=== PATIENT | male | born 1935 | race Caucasian/White ===

== ENCOUNTER → 2017-10-26 09:27 | Outpatient (CLI) | payer OTHER, SELFPAY ==
[2017-10-26 10:05] LABS: Add Manual Diff / Slide Review NO; Basophils Percent Auto 0.3 % (0-2); Eosinophils Percent Auto 3.5 % (2-4); Hematocrit 44.9 % (41-53); Hemoglobin 15.1 g/dL (13.5-17.5); Lymphocytes Percent Auto 36.2 % (25-40); Mean Corpuscular HGB Conc 33.7 % (30-36); Mean Corpuscular Hemoglobin 30.8 PG (26-34); Mean Corpuscular Volume 91.4 fL (80-100); Monocytes Percent Auto 8.5 % (3-14); Neutrophils Absolute Auto 3000 /uL (3000-5900); Neutrophils Percent Auto 51.5 % (50-75); Platelet Count 221 X10^3/uL (150-400); Red Blood Cell Count 4.91 X10^6/uL (4.5-5.9); Red Cell Distribution Width 12.9 % (11.6-14.8); White Blood Cell Count 5.8 X10^3/uL (4.5-11.0)
[2017-10-26 10:19] LABS: Alanine Aminotransferase 47 IU/L (21-72); Albumin 4.2 g/dL (3.5-5.0); Albumin Globulin Ratio 1.5 (1.0-2.8); Alkaline Phosphatase 55 U/L (38-126); Aspartate Aminotransferase 25 IU/L (17-59); BUN Creatinine Ratio 21.3 (6-22); Bilirubin Total 0.7 mg/dL (0.2-1.3); Blood Urea Nitrogen 17 mg/dL (9-20); Calcium 9.5 mg/dL (8.4-10.2); Carbon Dioxide 32 mmol/L (22-32); Chloride 104 mmol/L (98-107); Cholesterol 157 mg/dL (140-199); Estimated Glomerular Filt Rate > 60.0 mL/min (>60); Globulin 2.8 g/dL (1.7-4.1); Glucose 102 mg/dL (80-110); HDL Cholesterol 41 mg/dL (40-60); HEMOLYSIS < 15 (0-50); LDL Cholesterol Calculated 93 mg/dL (<100); Potassium 4.5 mmol/L (3.4-5.1); Sodium 144 mmol/L (137-145); Triglycerides 114 mg/dL (35-150)
[2017-10-26 10:45] LABS: Prostate Specific Antigen Scrn 0.484 ng/mL (0.1-4.0)
[2017-10-26 11:45] LABS: Thyroid Stimulating Hormone 1.01 uIU/mL (0.47-4.68)
== END ==
PROVIDERS: Family Provider Family Medicine; PCP Family Medicine; Visit Provider Family Medicine
DX: I10 Essential (primary) hypertension (principal); Z12.5 Encounter for screening for malignant neoplasm of prostate
CPT/HCPCS: 36415; 80053; 80061; 84443; 85025; G0103

== ENCOUNTER → 2018-08-25 07:57 | Outpatient (CLI) | payer MEDICARE, SELFPAY ==
[2018-08-25 09:01] LABS: Add Manual Diff / Slide Review NO; Basophils Absolute Auto 0 /uL (0-100); Basophils Percent Auto 0.4 % (0-2); Eosinophils Absolute Auto 300 /uL (0-450); Eosinophils Percent Auto 4.2 % (2-4); Hematocrit 45.6 % (41-53); Hemoglobin 15.4 g/dL (13.5-17.5); Lymphocytes Absolute Auto 2500 /uL (1100-4500); Lymphocytes Percent Auto 39.6 % (25-40); Mean Corpuscular HGB Conc 33.8 % (30-36); Mean Corpuscular Hemoglobin 30.6 PG (26-34); Mean Corpuscular Volume 90.5 fL (80-100); Monocytes Absolute Auto 600 /uL (0-900); Monocytes Percent Auto 9.2 % (3-14); Neutrophils Absolute Auto 2900 /uL (1500-7000); Neutrophils Percent Auto 46.6 % (50-75); Platelet Count 245 X10^3/uL (150-400); Red Blood Cell Count 5.05 X10^6/uL (4.5-5.9); Red Cell Distribution Width 13.4 % (11.6-14.8); White Blood Cell Count 6.3 X10^3/uL (4.5-11.0)
[2018-08-25 09:33] LABS: Alanine Aminotransferase 33 IU/L (21-72); Albumin 4.2 g/dL (3.5-5.0); Albumin Globulin Ratio 1.3 (1.0-2.8); Alkaline Phosphatase 69 U/L (38-126); Aspartate Aminotransferase 25 IU/L (17-59); BUN Creatinine Ratio 23.3 (6-22); Bilirubin Total 0.9 mg/dL (0.2-1.3); Blood Urea Nitrogen 21 mg/dL (9-20); Calcium 9.8 mg/dL (8.4-10.2); Carbon Dioxide 31 mmol/L (22-32); Chloride 100 mmol/L (98-107); Cholesterol 173 mg/dL (140-199); Estimated Glomerular Filt Rate > 60.0 mL/min (>60); Globulin 3.2 g/dL (1.7-4.1); Glucose 100 mg/dL (80-110); HDL Cholesterol 45 mg/dL (40-60); HEMOLYSIS < 15 (0-50); LDL Cholesterol Calculated 95 mg/dL (<100); Potassium 4.1 mmol/L (3.4-5.1); Sodium 140 mmol/L (137-145); Total Protein 7.4 g/dL (6.3-8.2); Triglycerides 164 mg/dL (35-150); Uric Acid 7.4 mg/dL (3.5-8.5)
[2018-08-25 09:59] LABS: Prostate Specific Antigen Scrn 0.513 ng/mL (0.1-4.0); Thyroid Stimulating Hormone 0.94 uIU/mL (0.47-4.68)
== END ==
PROVIDERS: PCP Family Medicine; Visit Provider Family Medicine
DX: I10 Essential (primary) hypertension (principal); M10.9 Gout, unspecified; Z12.5 Encounter for screening for malignant neoplasm of prostate; Z13.1 Encounter for screening for diabetes mellitus; Z13.220 Encounter for screening for lipoid disorders; Z13.6 Encounter for screening for cardiovascular disorders
CPT/HCPCS: 36415; 80053; 80061; 84443; 84550; 85025; G0103

== ENCOUNTER → 2018-09-05 14:09 | Outpatient (CLI) | payer MEDICARE, SELFPAY ==
--- NOTE | 2018-09-05 14:10 | DI.RAD.S_ITS ---
PROCEDURE: XR CHEST 2V INDICATIONS: sob TECHNIQUE: 2 views of the chest were acquired. COMPARISON: [facility], , CHEST 2 VIEW, 02/02/2012, 16:49. FINDINGS: Surgical changes and devices: None. Lungs and pleura: Mild pulmonary vascular congestion is seen. No definite focal infiltrate. No pleural effusions or pneumothorax. Mediastinum: Mediastinal contours are normal. Heart size is enlarged. Bones and chest wall: No suspicious bony abnormalities. Soft tissues appear unremarkable. IMPRESSION: Cardiomegaly and mild congestion. Finding may represent mild CHF. No focal infiltrate, pleural effusion or pneumothorax. Dictated by: Mic Salazar M.D. on 09/05/2018 at 15:35 Approved by: Mic Salazar M.D. on 09/05/2018 at 15:35
== END ==
PROVIDERS: PCP Family Medicine; Visit Provider Family Medicine
DX: R06.02 Shortness of breath (principal); I51.7 Cardiomegaly; R09.89 Other specified symptoms and signs involving the circulatory and respiratory systems
CPT/HCPCS: 71046

== ENCOUNTER → 2018-09-18 14:48 | Outpatient (CLI) | payer MEDICARE, SELFPAY ==
--- NOTE | 2018-09-18 14:49 | DI.ECHO.S_ITS ---
[place] [facility]---------+ [facility] +---------+ : : [address] : : : : [id number] : : : : Phone: [phone] Echocardiogram Report + + :Name: ANTIONE QURESHI Study Date: 09/18/2018 Height: 68 in : :[facility] Exam Location: [facility] Weight: 212 lb : : Gender: Male BSA: 2.1 m2 : :: 1935 Age: 82 yrs BP: 102/60 mmHg: :Reason For Study: CHF : : Performed By: Kb Henderson : :Referring: SEPIDEH DEWEY : + + Interpretation Summary Normal left ventricle size with ejection fraction 60-65%. The aortic valve is slightly calcified. Mild mitral annular calcification. Mild tricuspid regurgitation. The right ventricular systolic pressure is estimated to be at least 32 mmHg based on an estimated right atrial pressure of 3 mm Hg. Mildly enlarged ascending aorta. Procedure: A two-dimensional transthoracic echocardiogram with color flow and Doppler was performed. The study quality was technically good. There is no prior echocardiogram noted for this patient. The patient was in normal sinus rhythm during the exam. Left Ventricle: The left ventricle is normal in size. There is normal left ventricular wall thickness. The ejection fraction is estimated to be 60-65%. There are no focal wall motion abnormalities. Diastolic function could not be accurately assessed due to contradictory data. Right Ventricle: The right ventricle is normal in size and function. Atria: Both atria are normal in size. The interatrial septum is intact with no evidence for an atrial septal defect. Mitral Valve: The mitral valve leaflets are slightly calcified. There is mild mitral annular calcification. There is trace mitral regurgitation. Aortic Valve: The aortic valve is trileaflet. The aortic valve is slightly calcified. The aortic valve opens well. No aortic regurgitation is present. Tricuspid Valve: The tricuspid valve is normal in structure and function. There is mild tricuspid regurgitation. The right ventricular systolic pressure is estimated to be at least 32 mmHg based on an estimated right atrial pressure of 3 mm Hg. Pulmonic Valve: The pulmonic valve is normal in structure and function. There is trace pulmonic regurgitation. Great Vessels: The aortic root is normal size. The ascending aorta is mildly enlarged. The pulmonary artery is normal size. The IVC is of normal diameter and collapses greater than 50% with a sniff. This suggests a low right atrial pressure of 3 mm Hg. Pericardium/ Pleura There is no pericardial effusion. There is no pleural effusion. MMode/2D Measurements & Calculations LVIDd: 5.0 cm LVOT diam: 2.3 cm LVIDs: 2.8 cm Ao root diam: 3.3 cm FS: 44.8 % asc Aorta Diam: 3.7 cm EPSS: 0.41 cm Ao Arch Diam (Prox Trans): 2.3 cm IVSd: 0.91 cm LVPWd: 0.99 cm LV jain. diameter/BSA (cm/m^2): 2.4 LV sys. diameter/BSA (cm/m^2): 1.3 LA dimension: 4.1 cm RA long axis: 5.4 cm LA A2 area: 19.2 cm2 RA area: 17.0 cm2 LA A4 area: 20.1 cm2 RA vol: 45.4 ml LA length (vol): 6.7 cm RA : 21.6 ml/m2 LA vol: 48.8 ml IVC diam: 2.1 cm LA vol index: 23.3 ml/m2 RVD1 (basal): 4.7 cm RVD2 (mid): 4.8 cm Doppler Measurements & Calculations Ao V2 max: 174.5 cm/sec LVOT Max Venkatesh: 112.4 cm/sec Ao V2 mean: 130.3 cm/sec LV V1 max P.1 mmHg Ao max P.2 mmHg LV V1 VTI: 24.9 cm Ao mean P.5 mmHg SEBASTIAN(I,D): 2.8 cm2 Ao V2 VTI: 36.1 cm SEBASTIAN(V,D): 2.6 cm2 sev ratio: 0.69 SEBASTIAN indexed to BSA (cm^2/m^2): 1.3 MV E max venkatesh: 62.2 cm/sec TR max venkatesh: 268.5 cm/sec MV A max venkatesh: 97.6 cm/sec TR max P.8 mmHg MV E/A: 0.64 PA V2 max: 90.3 cm/sec Med Peak E' Venkatesh: 3.8 cm/sec PA V2 mean: 66.2 cm/sec E/E' med: 16.3 PA mean P.9 mmHg Lat Peak E' Venkatesh: 8.1 cm/sec PA pr(Accel): 29.1 mmHg E/E' lat: 7.7 PA Accel Time: 0.11 sec E/e' average: 12.0 MV dec time: 0.29 sec SVJOSÉ LUIS): 101.8 ml Electronically signed by: Sharonda Sargent on Reading Physician:09/18/2018 05:07 PM
== END ==
PROVIDERS: PCP Family Medicine; Visit Provider Family Medicine
DX: R06.02 Shortness of breath (principal); R93.89 Abnormal findings on diagnostic imaging of other specified body structures; I70.8 Atherosclerosis of other arteries; I07.1 Rheumatic tricuspid insufficiency; Q25.49 Other congenital malformations of aorta
CPT/HCPCS: 93306

== ENCOUNTER → 2019-01-30 13:14 | Outpatient (CLI) | payer MEDICARE, SELFPAY ==
--- NOTE | 2019-01-30 | DI.US.S_ITS ---
ULTRASOUND OF RIGHT BREAST AND AXILLA: 01/30/2019 CLINICAL: Palpable right axilla lump. Comparison is made to exam dated: 01/30/2019 [facility]. Color flow and real-time ultrasound of the right axilla were performed. Tavares scale images of the real-time examination were reviewed. Targeted ultrasound was performed in the region of the patient's reported focal palpable area of concern in the right axilla. No underlying breast mass or abnormality is identified. Benign blood vessels and soft tissues are identified. There are benign-appearing right axillary lymph nodes with no ultrasound evidence of right axillary lymphadenopathy identified. IMPRESSION: BENIGN 1) No suspicious masses, abnormalities, or axillary lymphadenopathy identified within the right axilla by ultrasound to correlate with the patient's reported focal palpable abnormality. Recommend clinical follow-up for further evaluation and management of the patient's reported symptoms. 2) Please note that mild bilateral gynecomastia was identified on bilateral diagnostic mammography performed earlier today 01/30/19. Clinical follow-up for further evaluation and management of these findings is recommended. 3) There is no sonographic evidence of malignancy in the imaged areas of the right axilla. Recommend follow-up imaging as clinically indicated by the patient's referring provider. Patient should return for reimaging should they feel anything grow or change within their breasts and axillae. This exam was interpreted at Station ID: [id number]. Electronically Signed By: Cachorro Del Castillo M.D. ecl/:01/30/2019 14:16:20 copy to: SEPIDEH DEWEY letter sent: Clinical Evaluation Ultrasound BI-RADS: 2 Benign
--- NOTE | 2019-01-30 13:15 | DI.MG.S_ITS ---
MALE BILATERAL DIGITAL DIAGNOSTIC MAMMOGRAM 3D/2D: 01/30/2019 CLINICAL: Baseline exam. Localized swelling mass and lump, right axilla. No prior exams were available for comparison. There is mild bilateral retroareolar gynecomastia. There is a triangular marker overlying the skin of the right axilla at the site of the patient's reported palpable abnormality. There is no underlying mass or abnormality immediately underlying the marker. There are benign appearing right axillary lymph nodes. No other right axillary masses or abnormalities are identified. No other significant masses, calcifications, or other findings are seen in either breast. IMPRESSION: INCOMPLETE: NEEDS ADDITIONAL IMAGING EVALUATION 1) Benign-appearing right axillary lymph nodes on mammography. No other masses or abnormalities are identified in the right axilla to correlate with the site of the patient's reported focal palpable abnormality. Targeted diagnostic ultrasound recommended for further evaluation, which will be performed immediately following this exam. 2) Mild bilateral retroareolar gynecomastia. Recommend clinical follow-up for further evaluation and management of these findings. This exam was interpreted at Station ID: [id number]. NOTE: For mammograms, a report in lay terms will be sent to the patient. Approximately 15% of breast malignancies will not be visualized mammographically. In the management of a palpable breast mass, a negative mammogram must not discourage biopsy of a clinically suspicious lesion. Electronically Signed By: Cachorro Del Castillo M.D. ecl/:01/30/2019 14:35:37 copy to: SEPIDEH DEWEY ACR BI-RADS Category 0: Incomplete [id number]
== END ==
PROVIDERS: PCP Family Medicine; Visit Provider Nurse Practitioner
DX: R92.8 Other abnormal and inconclusive findings on diagnostic imaging of breast (principal); N63.31 Unspecified lump in axillary tail of the right breast; N62 Hypertrophy of breast
CPT/HCPCS: 76882; 77066; G0279

== ENCOUNTER → 2019-08-23 07:05 | Outpatient (CLI) | payer MEDICARE, SELFPAY ==
[2019-08-23 08:31] LABS: BUN Creatinine Ratio 19.3 (6-22); Blood Urea Nitrogen 16 mg/dL (9-20); Carbon Dioxide 30 mmol/L (22-32); Chloride 101 mmol/L (98-107); Estimated Glomerular Filt Rate > 60.0 mL/min (>60); Glucose 98 mg/dL (80-110); HEMOLYSIS < 15 (0-50); Potassium 4.2 mmol/L (3.4-5.1); Sodium 138 mmol/L (137-145)
== END ==
PROVIDERS: PCP Family Medicine; Referring Provider Internal Medicine; Visit Provider Internal Medicine
DX: E87.79 Other fluid overload (principal)
CPT/HCPCS: 36415; 80048

== ENCOUNTER → 2020-01-18 07:10 | Outpatient (CLI) | payer MEDICARE, SELFPAY ==
[2020-01-18 08:21] LABS: Add Manual Diff / Slide Review NO; Basophils Absolute Auto 0 /uL (0-100); Basophils Percent Auto 0.2 % (0-2); Eosinophils Absolute Auto 300 /uL (0-450); Hematocrit 46.1 % (41-53); Hemoglobin 15.3 g/dL (13.5-17.5); Lymphocytes Absolute Auto 2700 /uL (1100-4500); Lymphocytes Percent Auto 37.3 % (25-40); Mean Corpuscular HGB Conc 33.2 % (30-36); Mean Corpuscular Hemoglobin 30.3 PG (26-34); Mean Corpuscular Volume 91.3 fL (80-100); Monocytes Absolute Auto 600 /uL (0-900); Neutrophils Absolute Auto 3600 /uL (1500-7000); Neutrophils Percent Auto 50.5 % (50-75); Platelet Count 263 X10^3/uL (150-400); Red Blood Cell Count 5.05 X10^6/uL (4.5-5.9); Red Cell Distribution Width 13.8 % (11.6-14.8); White Blood Cell Count 7.2 X10^3/uL (4.5-11.0)
[2020-01-18 08:42] LABS: Alanine Aminotransferase 26 IU/L (<50); Albumin 4.2 g/dL (3.5-5.0); Albumin Globulin Ratio 1.3 (1.0-2.8); Alkaline Phosphatase 80 U/L (38-126); Aspartate Aminotransferase 27 IU/L (17-59); BUN Creatinine Ratio 19.2 (6-22); Bilirubin Total 0.7 mg/dL (0.2-1.3); Blood Urea Nitrogen 15 mg/dL (9-20); Calcium 9.9 mg/dL (8.4-10.2); Carbon Dioxide 34 mmol/L (22-32); Chloride 98 mmol/L (98-107); Cholesterol 154 mg/dL (140-199); Estimated Glomerular Filt Rate > 60.0 mL/min (>60); Globulin 3.2 g/dL (1.7-4.1); Glucose 98 mg/dL (80-110); HDL Cholesterol 40 mg/dL (40-60); HEMOLYSIS < 15 (0-50); LDL Cholesterol Calculated 85 mg/dL (<100); Potassium 4.5 mmol/L (3.4-5.1); Sodium 136 mmol/L (137-145); Total Protein 7.4 g/dL (6.3-8.2); Triglycerides 147 mg/dL (35-150)
== END ==
PROVIDERS: PCP Family Medicine; Referring Provider Family Medicine; Visit Provider Family Medicine
DX: I10 Essential (primary) hypertension (principal)
CPT/HCPCS: 36415; 80053; 80061; 85025

== ENCOUNTER → 2020-01-29 10:34 | Outpatient (CLI) | payer MEDICARE, SELFPAY ==
--- NOTE | 2020-01-29 10:35 | DI.RAD.S_ITS ---
PROCEDURE: XR CHEST 2V INDICATIONS: Cough TECHNIQUE: 2 views of the chest were acquired. COMPARISON: [facility], , XR CHEST 2V, 09/05/2018, 14:17. [facility], , CHEST 2 VIEW, 02/02/2012, 16:49. FINDINGS: Surgical changes and devices: None. Lungs and pleura: Lungs are mildly abnormal with a mild chronic interstitial prominence. No pleural effusions or pneumothorax. Mediastinum: Mediastinal contours are normal. Heart size is normal. Bones and chest wall: No suspicious bony abnormalities. Soft tissues appear unremarkable. IMPRESSION: Mild chronic interstitial prominence, no pneumonia found. Dictated by: Rupert Stauffer M.D. on 01/29/2020 at 10:59 Approved by: Rupert Stauffer M.D. on 01/29/2020 at 10:59
== END ==
PROVIDERS: PCP Family Medicine; Referring Provider Family Medicine; Visit Provider Family Medicine
DX: R05 Cough (principal)
CPT/HCPCS: 71046

== ENCOUNTER 2020-06-18 16:03 | Observation (INO) | payer OTHER, SELFPAY ==
[2020-06-18] VITALS (13 sets, daily range): BP systolic 139–184; BP diastolic 72–97; PULSE 55–65; RESP 15–22; TEMP 36.2–36.6; O2SAT 95–98; BMI 30.1; BMI 30.7
--- NOTE | 2020-06-18 16:18 | DI.CT.S_ITS ---
PROCEDURE: CT STROKE INDICATIONS: confusion TECHNIQUE: Noncontrast 4.5 mm thick angled axial sections acquired from the foramen magnum to the vertex, with coronal reformats. For radiation dose reduction, the following was used: automated exposure control, adjustment of mA and/or kV according to patient size. COMPARISON: [facility], CT, HEAD WITHOUT CONTRAST, 11/13/2006, 15:45. FINDINGS: Image quality: Excellent. CSF spaces: Basal cisterns are patent. No extra-axial fluid collections. The ventricles are symmetric in size and shape. Brain: No intracranial bleeds or masses. There is cerebral volume loss for age, with resultant ventricular and sulcal prominence. There are periventricular and deep white matter chronic small vessel ischemic changes. There is intracranial internal carotid artery atherosclerosis. Skull and face: Calvarium and visualized facial bones appear intact, without suspicious lesions. Sinuses: Scattered ethmoid sinus disease. Remaining paranasal sinuses and mastoids are clear. IMPRESSION: 1. CT head without acute intracranial abnormalities or acute calvarial fractures. 2. Age-related senescent changes and sequela of chronic small vessel ischemic disease. 3. Mild scattered ethmoid sinus disease. Findings were discussed with Dr. Crawley of the emergency department at 1637 hrs PST This study fulfills neurological imaging criteria for inclusion or exclusion of acute stroke therapies based on available published neurological guidelines. Dictated by: Jaime Murrell M.D. on 06/18/2020 at 15:34 Approved by: Jaime Murrell M.D. on 06/18/2020 at 15:38
--- NOTE | 2020-06-18 16:29 | ED.NEUROSD ---
HPI - Neuro Symptoms/Deficit General Chief Complaint: Neuro Symptoms/Deficit Stated Complaint: thinks having a TIA Time Seen by Provider: 06/18/20 16:11 Source: patient and family Mode of arrival: Ambulatory Limitations: no limitations History of Present Illness HPI Narrative: Patient seen on arrival into the ER room 1. Patient complains onset 2:00 p.m. this afternoon left-sided headache with confusion. Symptoms resolved by the time saw him . Lasted 30 minutes. Headache better now. No slurred speech facial droop, no limb numbness or weakness. History of mini stroke back in 2006 with left-sided headache. Is not on any anticoagulation. No recent illness. No cough cold congestion fever chills. On Anticoagulants: No Related Data Home Medications Medication Instructions Recorded Confirmed allopurinol 150 mg PO DAILY 06/18/20 06/18/20 Previous Rx's Medication Instructions Recorded epinephrine 0.3 mg IM X1 #1 syr 10/16/15 amlodipine 5 mg tablet 5 mg PO QDAY #90 tab 12/21/19 hydrochlorothiazide 25 mg tablet 25 mg PO DAILY #90 tab 12/21/19 omeprazole 20 mg capsule,delayed 20 mg PO QDAY #90 cap 04/09/20 release aspirin 81 mg PO DAILY #30 tab 06/19/20 atorvastatin 40 mg PO BEDTIME #30 tab 06/19/20 Allergies Allergy/AdvReac Type Severity Reaction Status Date / Time No Known Drug Allergies Allergy Verified 06/18/20 16:17 Review of Systems Review of Systems Narrative: GENERAL: Denies chills, fatigue, malaise, fever, sweats. HEENT: Denies sinus pain, ear pain, sore throat RESPIRATORY: Denies dyspnea, cough CARDIOVASCULAR: Denies chest pain, palpitations GASTROINTESTINAL: Denies nausea, vomiting, abdominal pain : Denies dysuria, frequency, hematuria MUSCULOSKELETAL: denies muscle or bony pain SKIN: Denies rash, skin lesions NEUROLOGIC: Denies weakness, numbness, complaints of headache, complains of confusion PSYCH: No hallucinations auditory or visual ROS Unobtainable: All systems reviewed & are unremarkable except as noted in HPI and below Hematologic/Lymphatic On Anticoagulants: No 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) Chicken pox Dementia Diverticular disease Encysted hydrocele Gout (~1999) Hearing deficit Hearing loss (~1994) Hiatal hernia Hyperlipidemia Hypertension Measles Mumps Shoulder pain (~1999) Stroke (~2006) Vision disorder Surgical History Anesthesia Status post colonoscopy Status post rotator cuff repair (~2004) Umbilical hernia (~2011) Family History Brother Age: 79 High cholesterol Father Mental health problem Dementia Mother Hypertension High cholesterol Social History household members: significant other Smoking Status: Former smoker Smoking Status: Former smoker alcohol intake frequency: holidays/special occasions only Substance Use Type: does not use Exam Narrative Exam Narrative: GENERAL: in no distress, not toxic not dyspneic HEAD: Normocephalic. EYES: Pupils equal round No scleral icterus. No injection no discharge ENT: Mucous membranes moist. NECK: Trachea midline. CARDIOVASCULAR: Regular rate and rhythm without murmurs RESPIRATORY: Clear to auscultation. Breath sounds equal bilaterally. No wheezes, rales, or rhonchi. GASTROINTESTINAL: Abdomen soft, non-tender EXTREMITIES: No gross deformities. BACK: No flank tenderness. NEURO: AOx4. Clear speech no facial droop light touch intact to bilateral face hands and legs. States self gait in hallway to his room. Negative pronator drift. No footdrop. Strong bilateral cigar sorter and hip and knee flexion extension SKIN: Warm and dry PSYCH: Not anxious, is cooperative Initial Vital Signs Initial Vital Signs: Vital Signs Temperature 97.8 F 06/18/20 16:10 Pulse Rate 65 06/18/20 16:10 Respiratory Rate 15 06/18/20 16:10 Blood Pressure 184/97 H 06/18/20 16:10 Pulse Oximetry 98 06/18/20 16:10 Scores NIH Stroke Scale Level of Conciousness: Alert, keenly responsive Ask month/age: Answers both questions correctly. Open/close eyes, close hand: Performs both tasks correctly Best gaze horizontal: Normal Visual crenshaw: No visual loss Facial palsy: Normal symetrical movement Left arm drift: No drift for full 10 sec Right arm drift: No drift for full 10 sec Left leg drift: No drift for full 5 sec Right leg drift: No drift for full 5 sec Limb ataxia: Absent Sensory on face/arms/legs: Normal, no sensory loss Best language: No aphasia, normal Dysarthria: Normal Extinction or inattention: No abnormality Total NIH Stroke scale score: 0 Course Course Course Narrative: No new issues during course of stay Decision to Admit Date: 06/18/20 Decision to Admit time: 16:45 Orders Ordered: Discontinued Medications Acetaminophen (Acetaminophen 325 Mg Tablet) 650 mg PO Q6HR PRN PRN Reason: Fever/Mild Pain (1-3) Allopurinol (Allopurinol 300 Mg Tablet) 150 mg PO DAILY [facility] Allopurinol (Allopurinol 300 Mg Tablet) 200 mg PO DAILY [facility] Allopurinol (Allopurinol 100 Mg Tablet) 200 mg PO DAILY [facility] Last Admin: 06/19/20 09:01 Dose: 200 mg Documented by: NANCY Amlodipine Besylate (Amlodipine 5 Mg Tablet) 5 mg PO DAILY [facility] Last Admin: 06/19/20 09:01 Dose: 5 mg Documented by: NANCY Aspirin (Aspirin 81 Mg Chew Tab) 324 mg PO NOW ONE Stop: 06/18/20 17:26 Last Admin: 06/18/20 17:50 Dose: 243 mg Documented by: STONE Aspirin (Aspirin Ec 81 Mg Tablet) 81 mg PO DAILY [facility] Last Admin: 06/19/20 09:01 Dose: 81 mg Documented by: NANCY Atorvastatin Calcium (Atorvastatin 20 Mg Tablet) 80 mg PO BEDTIME [facility] Last Admin: 06/18/20 20:50 Dose: 80 mg Documented by: ANABELLE Enoxaparin Sodium (Enoxaparin 40 Mg/0.4 Ml Syringe) 40 mg SUBCUT DAILY [facility] Last Admin: 06/19/20 09:02 Dose: 40 mg Documented by: NANCY Meloxicam (Meloxicam 7.5 Mg Tablet) 15 mg PO 0800 [facility] Last Admin: 06/19/20 09:01 Dose: 15 mg Documented by: NANCY Naloxone HCl (Naloxone 0.4 Mg/Ml Vial) 0.2 mg IV Q2MIN PRN PRN Reason: Opiate Reversal Ondansetron HCl (Ondansetron 4 Mg/2 Ml Inj) 4 mg IV Q8HR PRN PRN Reason: Nausea And Vomiting Consultations Consultation #1: Spoke with radiologist regarding CT scan imaging, CT head without contrast no acute process Time: 14:39 Consultation #2: Spoke with Dr. Bennett, she agrees no CT at this time. Admit for the balance of stroke workup here. Including MRI MRA and echocardiogram. Time: 16:46 Consultation #3: Spoke with hospitalist, dr ortega, he is seeing patient now by bedside and admitting Time: 18:32 Vital Signs Vital signs: Vital Signs - 8 hr 06/18/20 16:10 06/18/20 16:13 06/18/20 16:14 Temperature 97.8 F Pulse Rate 65 64 Respiratory Rate 15 Blood Pressure 184/97 H 184/97 H Pulse Oximetry 98 96 98 06/18/20 16:29 06/18/20 16:30 06/18/20 17:00 Temperature Pulse Rate 59 L 59 L 56 L Respiratory Rate 18 22 18 Blood Pressure 162/85 H 155/90 H 141/72 H Pulse Oximetry 98 98 95 06/18/20 17:30 06/18/20 18:00 Temperature Pulse Rate 59 L 61 Respiratory Rate 20 17 Blood Pressure Pulse Oximetry 95 98 MDM - Neuro Symptoms/Deficit Differential Diagnosis Differential diagnosis: Likely cerebrovascular accident and transient cerebral ischemia Lab Data Attestation: I reviewed the patient's lab results. Result diagrams: 06/19/20 05:45 06/19/20 05:45 Labs: Lab Results 06/18/20 06/18/20 06/18/20 Range/Units 16:25 16:25 16:25 WBC 8.0 (4.5-11.0) X10^3/uL RBC 4.78 (4.5-5.9) X10^6/uL Hgb 14.8 (13.5-17.5) g/dL Hct 43.7 (41-53) % MCV 91.4 (80-100) fL MCH 31.0 (26-34) PG MCHC 33.9 (30-36) % RDW 13.2 (11.6-14.8) % Plt Count 222 (150-400) X10^3/uL Neut % (Auto) 52.9 (50-75) % Lymph % (Auto) 33.3 (25-40) % Pender % (Auto) 8.6 (3-14) % Eos % (Auto) 4.7 H (2-4) % Baso % (Auto) 0.5 (0-2) % Neut # (Auto) 4200 (3903-6242) /uL Lymph # (Auto) 2700 (6792-7933) /uL Pender # (Auto) 700 (0-900) /uL Eos # (Auto) 400 (0-450) /uL Baso # (Auto) 0 (0-100) /uL PT 11.0 (10.1-12.7) SECONDS INR 1.0 (0.9-1.3) APTT 32 (26.4-36.2) SECONDS Sodium 135 L (137-145) mmol/L Potassium 3.9 (3.4-5.1) mmol/L Chloride 99 (98-107) mmol/L Carbon Dioxide 31 (22-32) mmol/L BUN 16 (9-20) mg/dL Creatinine 0.79 (0.66-1.25) mg/dL Estimated GFR > 60.0 (>60) mL/min BUN/Creatinine Ratio 20.3 (6-22) Glucose 96 (80-110) mg/dL Calcium 9.5 (8.4-10.2) mg/dL Total Bilirubin 0.4 (0.2-1.3) mg/dL AST 28 (17-59) IU/L ALT 32 (<50) IU/L Alkaline Phosphatase 68 (38-126) U/L Total Creatine Kinase 81 (55-170) U/L CK-MB (CK-2) TNP CK-MB (CK-2) Rel Index TNP Troponin I < 0.012 (0.01-0.034) ng/mL Total Protein 6.9 (6.3-8.2) g/dL Albumin 4.0 (3.5-5.0) g/dL Globulin 2.9 (1.7-4.1) g/dL Albumin/Globulin Ratio 1.4 (1.0-2.8) Point of Care Testing Glucose POC 90 Urine Dip Bedside Urine Glucose Negative Bedside Urine Bilirubin - Negative Bedside Urine Ketone - Negative Urine Specific [place] 1.010 Bedside Urine Occult Blood - Negative Bedside Urine pH 6.5 Bedside Urine Protein - Negative Bedside Urine Urobilinogen - Negative Bedside Urine Nitrite - Negative Bedside Urine Leukocytes - Negative Esterase Imaging Data CT scan - head: Radiologist's Impression: [address] [id number] Scan ReportSigned Patient: Tyrone Mac LMR#: [id number]: 8Acct:[id number]/Sex: 84 / MDate of Service: 06/18/20Loc: EDAccession Number: [id number] Procedure: CT Stroke Ordering Provider: Francisco Crawley MD PROCEDURE: CT STROKE INDICATIONS: confusion TECHNIQUE: Noncontrast 4.5 mm thick angled axial sections acquired from the foramen magnum to the vertex, with coronal reformats. For radiation dose reduction, the following was used: automated exposure control, adjustment of mA and/or kV according to patient size. COMPARISON: [facility], CT, HEAD WITHOUT CONTRAST, 11/13/2006, 15:45. FINDINGS: Image quality: Excellent. CSF spaces: Basal cisterns are patent. No extra-axial fluid collections. The ventricles are symmetric in size and shape. Brain: No intracranial bleeds or masses. There is cerebral volume loss for age, with resultant ventricular and sulcal prominence. There are periventricular and deep white matter chronic small vessel ischemic changes. There is intracranial internal carotid artery atherosclerosis. Skull and face: Calvarium and visualized facial bones appear intact, without suspicious lesions. Sinuses: Scattered ethmoid sinus disease. Remaining paranasal sinuses and mastoids are clear. IMPRESSION: 1. CT head without acute intracranial abnormalities or acute calvarial fractures. 2. Age-related senescent changes and sequela of chronic small vessel ischemic disease. 3. Mild scattered ethmoid sinus disease. Findings were discussed with Dr. Crawley of the emergency department at 1637 hrs PST This study fulfills neurological imaging criteria for inclusion or exclusion of acute stroke therapies based on available published neurological guidelines. Dictated by: Jaime Murrell M.D. on 06/18/2020 at 15:34 Approved by: Jaime Murrell M.D. on 06/18/2020 at 15:38 ECG Data Attestation: I personally reviewed and interpreted this ECG as follows: Interpretation: Normal sinus rhythm right bundle-branch block, rate 61, no ST elevation or depression MDM Narrative Medical decision making narrative: Appropriate for admission to hospital for balance of workup for stroke. Symptoms resolved. No indication for tPA. Reviewed with stroke provider on-call. Agrees with treatment plan. Reviewed with patient and and they agree as well. Discharge Plan Departure Patient Disposition: Admitted as Observation Clinical Impression: Transient cerebral ischemia Qualifiers: Transient cerebral ischemia type: unspecified Qualified Code(s): G45.9 - Transient cerebral ischemic attack, unspecified Admit Date/Time: 06/18/20 18:52 Admit Provider: Roel Mata
[2020-06-18 16:38] LABS: Add Manual Diff / Slide Review NO; Basophils Absolute Auto 0 /uL (0-100); Basophils Percent Auto 0.5 % (0-2); Eosinophils Absolute Auto 400 /uL (0-450); Eosinophils Percent Auto 4.7 % (2-4); Hematocrit 43.7 % (41-53); Hemoglobin 14.8 g/dL (13.5-17.5); Lymphocytes Absolute Auto 2700 /uL (1100-4500); Lymphocytes Percent Auto 33.3 % (25-40); Mean Corpuscular HGB Conc 33.9 % (30-36); Mean Corpuscular Volume 91.4 fL (80-100); Monocytes Absolute Auto 700 /uL (0-900); Monocytes Percent Auto 8.6 % (3-14); Neutrophils Absolute Auto 4200 /uL (1500-7000); Neutrophils Percent Auto 52.9 % (50-75); Platelet Count 222 X10^3/uL (150-400); Red Blood Cell Count 4.78 X10^6/uL (4.5-5.9); Red Cell Distribution Width 13.2 % (11.6-14.8)
--- NOTE | 2020-06-18 16:47 | PC.NURSE ---
PT reports 1400 called to because he was having trouble typing on the computer, I kept miss-spelling the same word over and over. Thought he was having a TIA as he has a history of. Now reports feeling fuzzy and has headache 2-3/10. reports pt was taken off baby aspirin regimen last month in April after establishing new primary care provider. Pt did take a baby aspirin before coming to ED today.
[2020-06-18 16:56] LABS: PTT Partial Thromboplastin Tim 32 SECONDS (26.4-36.2)
[2020-06-18 16:58] LABS: Alanine Aminotransferase 32 IU/L (<50); Albumin Globulin Ratio 1.4 (1.0-2.8); Alkaline Phosphatase 68 U/L (38-126); Aspartate Aminotransferase 28 IU/L (17-59); BUN Creatinine Ratio 20.3 (6-22); Bilirubin Total 0.4 mg/dL (0.2-1.3); Blood Urea Nitrogen 16 mg/dL (9-20); Calcium 9.5 mg/dL (8.4-10.2); Carbon Dioxide 31 mmol/L (22-32); Chloride 99 mmol/L (98-107); Creatine Kinase 81 U/L (55-170); Estimated Glomerular Filt Rate > 60.0 mL/min (>60); Globulin 2.9 g/dL (1.7-4.1); Glucose 96 mg/dL (80-110); HEMOLYSIS 26 (0-50); Potassium 3.9 mmol/L (3.4-5.1); Sodium 135 mmol/L (137-145); Total Protein 6.9 g/dL (6.3-8.2)
--- NOTE | 2020-06-18 17:03 | RT ---
Responded to Code stroke, airway patient and no distress noted. pt on room air with MD at bedside
[2020-06-18 17:10] LABS: Troponin I < 0.012 ng/mL (0.01-0.034)
[2020-06-18] MEDS: ASPIRIN 81 MG CHEW TAB 324 MG PO (17:50)
--- NOTE | 2020-06-18 18:59 | DI.MRI.S_ITS ---
PROCEDURE: MR STROKE Pre- and post-contrast brain MRI, non-contrast brain MR angiogram, pre- and postcontrast neck MR angiogram INDICATIONS: TIA? TECHNIQUE: Brain: Noncontrast axial T1 spin echo, axial T2 fast spin echo, sagittal and axial FLAIR, coronal T2 fast spin echo, axial gradient echo, axial diffusion and ADC through the brain. After the administration of contrast, axial 3D VIBE of the cranial vasculature and brain. Brain MRA: Non-contrast 3-D time of flight MR angiogram, with multiple ubxbxff-pbucckxua-egddsnsuym (MIP) reformats performed. Neck MRA: Axial and sagittal TruFISP through the neck. Coronal dynamic MR angiogram during administration of contrast in the arterial and venous phases, with 3-dimenstional enmbeio-wiskjgjqz-vksviyxnjf (MIP) reformats constructed from subtraction images. COMPARISON: [facility], MR, STROKE PROTOCOL A, 11/14/2006, 18:57. [facility], MR, BRAIN (IAC) W AND WO CONTRAST, 07/02/2009, 13:04. [facility], CT, HEAD WITHOUT CONTRAST, 11/13/2006, 15:45. [facility], CT, CT STROKE, 06/18/2020, 16:21. FINDINGS: Image quality: Excellent. BRAIN: CSF spaces: Ventricles are normal in size and shape. Basal cisterns are patent. No extra-axial fluid collections. Brain: No intracranial bleeds or mass effects. Tavares-white matter interface is normal. Diffusion weighted images show no acute ischemic insults. Brainstem appears normal. Normal intravascular flow voids are present. No abnormal intracranial enhancement. Brain parenchymal volume loss and chronic small vessel ischemic change can be seen. Skull and face: Calvarial marrow signal is normal. Orbits appear normal. Note is made of bilateral lens replacements. Sinuses: Moderate mucosal thickening is seen within the ethmoid air cells. There is a mucous retention cyst seen within the right maxillary sinus. Small mucous retention cysts are seen within the left maxillary sinus. The paranasal sinuses otherwise appear clear. No abnormal fluid is seen within the mastoid air cells. BRAIN MR ANGIOGRAM: Anterior circulation: Intracranial internal carotid arteries are normal in size and enhancement. The flow within the paired anterior cerebral arteries is normal and symmetric. The flow within the middle cerebral arteries is normal and symmetric. The anterior communicating artery is seen. No stenoses, occlusions, or aneurysms. Posterior circulation: The visualized portions of the vertebral arteries demonstrate normal caliber, and join to form a normal appearing basilar artery. The flow within the posterior cerebral arteries is normal and symmetric. No stenoses, occlusions, or aneurysms. NECK MR ANGIOGRAM: Carotids: Great vessels demonstrate a conventional anatomy as they arise from the aortic arch. The origins of the common carotid arteries appear patent. The calibers and courses of both common carotid arteries are normal. The bifurcation regions appear normal bilaterally. The internal carotid arteries demonstrate normal course and caliber. Posterior circulation: The origins of the vertebral arteries appear patent. More superior portions of both vertebral arteries demonstrate normal course and caliber, and join to form a normal appearing basilar artery. Miscellaneous: Subclavian arteries appear patent. Pre-contrast images through the neck show no soft tissue abnormalities. IMPRESSION: BRAIN MRI: No findings of acute or subacute infarction can be seen. Note is made of age-appropriate brain parenchymal volume loss and chronic small vessel ischemic changes. No masses or abnormal enhancement can be seen. Paranasal sinus disease noted. BRAIN MR ANGIOGRAM: No significant intracranial arterial abnormality is seen. NECK MR ANGIOGRAM: Within the arteries of the neck, no hemodynamically significant stenosis can be seen. Dictated by: Faizan Walter M.D. on 06/19/2020 at 9:40 Approved by: Faizan Walter M.D. on 06/19/2020 at 9:45
[2020-06-18 20:17] LABS: COVID19 - ADMIT (NP swab/PCR) Negative (Negative)
--- NOTE | 2020-06-18 20:29 | PM.HP.1 ---
History of Present Illness History of Present Illness Date Patient Seen: 06/18/20 Time Patient Seen: 17:29 Chief complaint: thinks having a TIA Narrative: Mr. Mac is a 84M with PMH of TIA, HTN, HL, GERD, gout who comes in with sudden onset confusion, clumsiness, and headache. Patient said he was in his normal state of health and was working on his computer when he started to feel fuzzy. He describes this as clumsiness with using his hands to type, he also felt confused, and he developed a left sided headache. He had no lateralizing weakness, no numbness, no facial droop or trouble speaking. No visual changes. No chest pain, palpitations, or shortness of breath. He had similar symptoms years ago and was told he had a TIA. He is not currently on aspirin as this was stopped by a previous physician. In the ER, he was noted to have a normal vitals except for a high blood pressure in the 180s/90s. His labs including, CBC, BMP, troponin was unremarkable. His NIH was noted to be 0, and he said he felt back to his normal. He had CT head which showed no acute process. He did have chronic small vessel ischemic changes. He was given a full dose aspirin and admitted for further treatment. 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) Chicken pox Dementia Diverticular disease Encysted hydrocele Gout (~1999) Hearing deficit Hearing loss (~1994) Hiatal hernia Hyperlipidemia Hypertension Measles Mumps Shoulder pain (~1999) Stroke (~2006) Vision disorder Surgical History Anesthesia Status post colonoscopy Status post rotator cuff repair (~2004) Umbilical hernia (~2011) Family & Social History Family History Brother Age: 79 High cholesterol Father Mental health problem Dementia Mother Hypertension High cholesterol Social History: household members significant other Prior Living Arrangements House Safety & Behavioral: Feels Safe in Current Yes Environment Been Physically Hurt or No Threatened By a Person Suicidal Ideation Description None Suicide Plan Description No Plan Tobacco & Substance use: Smoking Status Former smoker alcohol intake frequency holiday/special occasion Substance Use Type does not use Meds Home Medications and Allergies Home Medications Medication Instructions Recorded Confirmed Type epinephrine 0.3 mg IM X1 #1 syr 10/16/15 06/18/20 Rx amlodipine 5 mg tablet 5 mg PO QDAY #90 tab 12/21/19 06/18/20 Rx atorvastatin 20 mg tablet 20 mg PO DAILY #90 tab 12/21/19 06/18/20 Rx hydrochlorothiazide 25 mg tablet 25 mg PO DAILY #90 tab 12/21/19 06/18/20 Rx omeprazole 20 mg capsule,delayed 20 mg PO QDAY #90 cap 04/09/20 06/18/20 Rx release allopurinol 150 mg PO DAILY 06/18/20 06/18/20 History Allergies Allergy/AdvReac Type Severity Reaction Status Date / Time No Known Drug Allergies Allergy Verified 06/18/20 16:17 Review of Systems Review of Systems Narrative: 14 systems reviewed and negative aside from HPI Exam Vital Signs (past 8 hours): - 06/18/20 16:10 06/18/20 16:13 06/18/20 16:14 Temperature 97.8 F Pulse Rate 65 64 Respiratory Rate 15 Blood Pressure 184/97 H 184/97 H Pulse Oximetry 98 96 98 06/18/20 16:29 06/18/20 16:30 06/18/20 17:00 Temperature Pulse Rate 59 L 59 L 56 L Respiratory Rate 18 22 18 Blood Pressure 162/85 H 155/90 H 141/72 H Pulse Oximetry 98 98 95 06/18/20 17:30 06/18/20 18:00 06/18/20 18:30 Temperature Pulse Rate 59 L 61 60 Respiratory Rate 20 17 18 Blood Pressure Pulse Oximetry 95 98 96 06/18/20 19:00 06/18/20 19:29 Temperature 97.2 F L Pulse Rate 59 L 55 L Respiratory Rate 20 19 Blood Pressure 139/89 Pulse Oximetry 96 97 Oxygen Delivery Method Room Air Narrative Exam Narrative: GEN: no acute distress HEENT: moist mucous membranes, no JVD CV: regular rate and rhythm with no murmurs PULM: clear bilaterally with no wheezes, rhonchi, rales ABD: soft, nontender, nondistended, no organomegaly, normal bowel sounds EXT: warm and well perfused, no edema NEURO: AAOx3, cranial nerves intact, upper and lower extremities with normal strength, no cerebellar signs SKIN: no rashes noted PSYCH: cooperative, pleasant mood Objective Labs Result Diagrams: 06/18/20 16:25 06/18/20 16:25 Labs: Laboratory Results - last 24 hr 06/18/20 06/18/20 06/18/20 16:25 16:25 16:25 WBC 8.0 RBC 4.78 Hgb 14.8 Hct 43.7 MCV 91.4 MCH 31.0 MCHC 33.9 RDW 13.2 Plt Count 222 Neut % (Auto) 52.9 Lymph % (Auto) 33.3 Mcminn % (Auto) 8.6 Eos % (Auto) 4.7 H Baso % (Auto) 0.5 Neut # (Auto) 4200 Lymph # (Auto) 2700 Mcminn # (Auto) 700 Eos # (Auto) 400 Baso # (Auto) 0 PT 11.0 INR 1.0 APTT 32 Sodium 135 L Potassium 3.9 Chloride 99 Carbon Dioxide 31 BUN 16 Creatinine 0.79 Estimated GFR > 60.0 BUN/Creatinine Ratio 20.3 Glucose 96 Calcium 9.5 Total Bilirubin 0.4 AST 28 ALT 32 Alkaline Phosphatase 68 Total Creatine Kinase 81 CK-MB (CK-2) TNP CK-MB (CK-2) Rel Index TNP Troponin I < 0.012 Total Protein 6.9 Albumin 4.0 Globulin 2.9 Albumin/Globulin Ratio 1.4 SARS-CoV-2 (PCR) 06/18/20 19:20 WBC RBC Hgb Hct MCV MCH MCHC RDW Plt Count Neut % (Auto) Lymph % (Auto) Mcminn % (Auto) Eos % (Auto) Baso % (Auto) Neut # (Auto) Lymph # (Auto) Mcminn # (Auto) Eos # (Auto) Baso # (Auto) PT INR APTT Sodium Potassium Chloride Carbon Dioxide BUN Creatinine Estimated GFR BUN/Creatinine Ratio Glucose Calcium Total Bilirubin AST ALT Alkaline Phosphatase Total Creatine Kinase CK-MB (CK-2) CK-MB (CK-2) Rel Index Troponin I Total Protein Albumin Globulin Albumin/Globulin Ratio SARS-CoV-2 (PCR) Negative Assessment & Plan Assessment & Plan narrative: Mr. Mac is an 84M with PMH of TIA, HTN, HL, GERD, gout who presents with transient confusion, and headache of unclear etiology. 1. Transient neurologic symptoms with confusion -possibly a TIA -on admission patients symptoms all resolved, NIH 0 -CT head shows no acute abnormality -given full dose aspirin in ER -ordered for aspirin and full dose atorvastatin -ordered MRI, ECHO -a1c and lipid panel pending 2. Hypertension -resume home medications with HCTZ, amlodipine -will monitor BP carefully to avoid rapid drop in pressure 3. Hyperlipidemia -increase atorvastatin dose -lipid panel pending 4. GERD -continue PPI 5. Gout -continue allopurinol IVF: none DVT ppx: lovenox sc Diet: Heart healthy Code status: Full, proxy is daughter Magno COVID-19 COVID-19 status: Negative Time Spent With Patient Time with patient: 15-24 minutes Quality VTE Deep Vein Thrombosis/Pulmonary Embolism Present on Admission: No MIPS - Admit I confirm the patient?s Advance Care Plan is present, Code status is documented, Surrogate decision maker is in patient?s record [If Yes, STOP here]: Yes
[2020-06-18] MEDS: ATORVASTATIN 20 MG TABLET 80 MG PO (20:50)
[2020-06-19 00:41] VITALS: BP 133/69; PULSE 69; RESP 16; TEMP 36.2; O2SAT 95
--- NOTE | 2020-06-19 03:18 | PC.NURSE ---
Pt reports beginning out gout attack on R foot, provider notified, metoclopramide ordered to start in AM in addition to 50 mg increase in allopurinol.
[2020-06-19 06:26] LABS: Add Manual Diff / Slide Review NO; Basophils Absolute Auto 0 /uL (0-100); Basophils Percent Auto 0.4 % (0-2); Eosinophils Absolute Auto 300 /uL (0-450); Eosinophils Percent Auto 5.4 % (2-4); Hematocrit 43.2 % (41-53); Hemoglobin 14.6 g/dL (13.5-17.5); Lymphocytes Absolute Auto 2000 /uL (1100-4500); Lymphocytes Percent Auto 34.2 % (25-40); Mean Corpuscular HGB Conc 33.9 % (30-36); Mean Corpuscular Hemoglobin 31.2 PG (26-34); Mean Corpuscular Volume 92.3 fL (80-100); Monocytes Absolute Auto 500 /uL (0-900); Monocytes Percent Auto 8.9 % (3-14); Neutrophils Absolute Auto 3000 /uL (1500-7000); Neutrophils Percent Auto 51.1 % (50-75); Platelet Count 202 X10^3/uL (150-400); Red Blood Cell Count 4.68 X10^6/uL (4.5-5.9); Red Cell Distribution Width 12.8 % (11.6-14.8); White Blood Cell Count 5.9 X10^3/uL (4.5-11.0)
[2020-06-19 06:35] LABS: BUN Creatinine Ratio 16.4 (6-22); Blood Urea Nitrogen 12 mg/dL (9-20); Calcium 9.6 mg/dL (8.4-10.2); Carbon Dioxide 31 mmol/L (22-32); Chloride 102 mmol/L (98-107); Cholesterol 130 mg/dL (140-199); Estimated Glomerular Filt Rate > 60.0 mL/min (>60); Glucose 104 mg/dL (80-110); HDL Cholesterol 42 mg/dL (40-60); HEMOLYSIS < 15 (0-50); LDL Cholesterol Calculated 60 mg/dL (<100); Potassium 3.6 mmol/L (3.4-5.1); Sodium 138 mmol/L (137-145); Triglycerides 139 mg/dL (35-150)
[2020-06-19 06:39] LABS: Hemoglobin A1C% w Est Avg Glu 5.7 % (4.0-6.0)
[2020-06-19 08:04] VITALS: BP 134/84; PULSE 60; RESP 18; TEMP 36.6; O2SAT 95
[2020-06-19] MEDS: MELOXICAM 7.5 MG TABLET 15 MG PO (09:01)
[2020-06-19] MEDS: AMLODIPINE 5 MG TABLET PO (09:01)
[2020-06-19] MEDS: allopurinoL 100 MG TABLET 200 MG PO (09:01)
[2020-06-19] MEDS: ASPIRIN EC 81 MG TABLET PO (09:01)
[2020-06-19] MEDS: ENOXAPARIN 40 MG/0.4 ML SYRINGE SUBCUT (09:02)
--- NOTE | 2020-06-19 10:34 | PC.NURSE ---
Assess- Patient is alert and oriented x3, he is hard of hearing. He does not having any symptoms of a CVA, memory is wnl and his speech is clear. Patient is down in MRI now.
--- NOTE | 2020-06-19 11:48 | CM.DANOTE ---
Discharge Planning/Care Management DCP: assessment: case received, EMR reviewed, d/c order noted. Met now with pt and his self identified spouse Kadie Talley. Both confirm that pt had the second MRI this morning and that they are just waiting for the final d/c details from the physician and RN Marlen. Pt is an 84 year old male who admitted last night to care of hospitalist team. PCP: Dr. Lopez: pt had first appt with him on 05/16/2020 Payer: [employer]. P: home today as per above. CM Discharge Assessment Start: 06/19/20 11:46 Freq: Status: Active Protocol: Document 06/19/20 11:46 ITV (Rec: 06/19/20 11:48 ITV [id number]) Discharge Planning Assessment Advance Directives? No History Provided By Patient,Significant Other, Medical Record Prior Living Arrangements House Household Members significant other Comment Kadie Laneriddhikaci: my other half Independent with ADL's Yes Is patient alert and oriented? Yes Discharge Plan Home
--- NOTE | 2020-06-19 19:53 | PM.DS.1 ---
History of Present Illness History of Present Illness Chief complaint: thinks having a TIA Narrative: Mr. Mac is a 84M with PMH of TIA, HTN, HL, GERD, gout who comes in with sudden onset confusion, clumsiness, and headache. Patient said he was in his normal state of health and was working on his computer when he started to feel fuzzy. He describes this as clumsiness with using his hands to type, he also felt confused, and he developed a left sided headache. He had no lateralizing weakness, no numbness, no facial droop or trouble speaking. No visual changes. No chest pain, palpitations, or shortness of breath. He had similar symptoms years ago and was told he had a TIA. He is not currently on aspirin as this was stopped by a previous physician. In the ER, he was noted to have a normal vitals except for a high blood pressure in the 180s/90s. His labs including, CBC, BMP, troponin was unremarkable. His NIH was noted to be 0, and he said he felt back to his normal. He had CT head which showed no acute process. He did have chronic small vessel ischemic changes. He was given a full dose aspirin and admitted for further treatment. Discharge Providers Provider Date of admission: 06/18/20 18:52 Discharge Date: 06/19/20 Discharge provider: Roel Mata MD Summary Hospital Course Discharge Diagnosis: 1. Probable TIA 2. Hypertension 3. Hyperlipidemia 4. GERD 5. Gout Hospital Course: Mr. Mac was admitted with headache, disorientation, and clumsiness. He was initially a code stroke. NIH score initially was 0, as he was feeling back to his normal in the ER. CT head did not show any acute abnormality. MRI of the brain did show chronic ischemic changes, and was negative for any stroke. He was started on aspirin and increased dose of atorvastatin to 40mg daily. He should follow up with ECHO as an outpatient, but in the hospital he had no evidence of any cardiac arrhythmia. His a1c was 5.7, and he had normal cholesterol. His other medical issues were stable in the hospital. Code: Full Status at Discharge Cognitive/behavioral status at discharge: oriented Functional status at discharge: independent ambulation Overall status at discharge: patient is back to baseline Time Spent with Patient Time spent: Less than 30 minutes Exam Vital Signs (past 8 hours): Oxygen Delivery Method Room Air Oxygen Flow Rate 0 Narrative Exam Narrative: GEN: no acute distress HEENT: moist mucous membranes, no JVD CV: regular rate and rhythm with no murmurs PULM: clear bilaterally with no wheezes, rhonchi, rales ABD: soft, nontender, nondistended, no organomegaly, normal bowel sounds EXT: warm and well perfused, no edema NEURO: AAOx3, cranial nerves intact, upper and lower extremities with normal strength, no cerebellar signs SKIN: no rashes noted PSYCH: cooperative, pleasant mood Objective Labs Result Diagrams: 06/19/20 05:45 06/19/20 05:45 Labs: Laboratory Results - last 24 hr 06/18/20 06/19/20 06/19/20 19:20 05:45 05:45 WBC 5.9 RBC 4.68 Hgb 14.6 Hct 43.2 MCV 92.3 MCH 31.2 MCHC 33.9 RDW 12.8 Plt Count 202 Neut % (Auto) 51.1 Lymph % (Auto) 34.2 [place] % (Auto) 8.9 Eos % (Auto) 5.4 H Baso % (Auto) 0.4 Neut # (Auto) 3000 Lymph # (Auto) 2000 [place] # (Auto) 500 Eos # (Auto) 300 Baso # (Auto) 0 Sodium 138 Potassium 3.6 Chloride 102 Carbon Dioxide 31 BUN 12 Creatinine 0.73 Estimated GFR > 60.0 BUN/Creatinine Ratio 16.4 Glucose 104 Hemoglobin A1c Calcium 9.6 Triglycerides Cholesterol LDL Cholesterol, Calc HDL Cholesterol SARS-CoV-2 (PCR) Negative 06/19/20 06/19/20 05:45 05:45 WBC RBC Hgb Hct MCV MCH MCHC RDW Plt Count Neut % (Auto) Lymph % (Auto) [place] % (Auto) Eos % (Auto) Baso % (Auto) Neut # (Auto) Lymph # (Auto) [place] # (Auto) Eos # (Auto) Baso # (Auto) Sodium Potassium Chloride Carbon Dioxide BUN Creatinine Estimated GFR BUN/Creatinine Ratio Glucose Hemoglobin A1c 5.7 Calcium Triglycerides 139 Cholesterol 130 L LDL Cholesterol, Calc 60 HDL Cholesterol 42 SARS-CoV-2 (PCR) [facility] Medical History Actinic keratosis Asbestosis (~1964) Chicken pox Dementia Diverticular disease Encysted hydrocele Gout (~1999) Hearing deficit Hearing loss (~1994) Hiatal hernia Hyperlipidemia Hypertension Measles Mumps Shoulder pain (~1999) Stroke (~2006) Vision disorder Surgical History Anesthesia Status post colonoscopy Status post rotator cuff repair (~2004) Umbilical hernia (~2011) Family History Brother Age: 79 High cholesterol Father Mental health problem Dementia Mother Hypertension High cholesterol Social History household members: significant other Smoking Status: Former smoker Discharge Plan Discharge Plan Patient Disposition: Home Provider Discharge Comment: Mr. Mac came in feeling fuzzy and uncoordinated that started suddenly. He also had a headache. His symptoms got better in the hospital. He was evaluated for possible stroke. CT scan of his head was done which did not show any acute problem. MRI did not show any stroke. He has some atherosclerosis in his arteries. To lower risk of future stroke he was started on aspirin and he had his atorvastatin dose increased. Discharge orders & Medications Prescriptions: New atorvastatin 40 mg tablet 40 mg PO BEDTIME Qty: 30 RF: 0 aspirin 81 mg tablet,delayed release (DR/EC) 81 mg PO DAILY Qty: 30 RF: 0 Continued epinephrine 0.3 MG/0.3 ML auto-injector 0.3 mg IM X1 Qty: 1 RF: 5 amlodipine [Norvasc] 5 mg tablet 5 mg PO QDAY Qty: 90 RF: 3 hydrochlorothiazide 25 mg tablet 25 mg PO DAILY Qty: 90 RF: 3 omeprazole 20 mg capsule,delayed release(DR/EC) 20 mg PO QDAY Qty: 90 RF: 3 allopurinol 300 mg tablet 150 mg PO DAILY RF: 0 Discontinued atorvastatin 20 mg tablet 20 mg PO DAILY Qty: 90 RF: 3 Diet/Activity/Treatments Diet: Low-fat, Low-sodium and Low-cholesterol Visit Report/Discharge Packet Instructions: Transient Ischemic Attack, DI for Transient Ischemic Attack, Atorvastatin, Aspirin Discharge Data Attending Provider: Roel Mata Quality VTE Deep Vein Thrombosis/Pulmonary Embolism Present on Admission: No
== END 2020-06-19 14:15 | disposition home or self-care (01) ==
LOC: ED 16:48 → AC 18:53
PROVIDERS: Admitting Provider Internal Medicine; Emergency Provider Emergency Medicine; Referring Provider Emergency Medicine; Visit Provider Internal Medicine
DX: R41.0 Disorientation, unspecified (principal); R51.9 Headache, unspecified; I10 Essential (primary) hypertension; E78.5 Hyperlipidemia, unspecified; K21.9 Gastro-esophageal reflux disease without esophagitis; M10.9 Gout, unspecified; Z20.822 Contact with and (suspected) exposure to COVID-19
CPT/HCPCS: 36415; 70450; 70548; 70553; 80048; 80053; 80061; 81003; 82550; 82962; 83036; 84484; 85025; 85610; 85730; 87635; 93005; 93010; 96372; 99284; 99285; C9803; G0378; A9579; J1650

== ENCOUNTER → 2020-07-21 15:00 | Outpatient (CLI) | payer OTHER, SELFPAY ==
[2020-06-18 19:34] VITALS: BMI 30.7
--- NOTE | 2020-07-21 | DI.US.S_ITS ---
ULTRASOUND OF RIGHT AXILLA: 07/21/2020 CLINICAL: Palpable right axilla lump. Comparison is made to exams dated: 07/21/2020 mammogram, 01/30/2019 ultrasound, and 01/30/2019 mammogram - [facility]. Real-time ultrasound of the right axilla was performed. Tavares scale images of the real-time examination were reviewed. No significant abnormalities were seen sonographically in the right axilla. IMPRESSION: NEGATIVE There is no sonographic evidence of malignancy. There is no abnormality seen in the right axilla to correspond with the palpable abnormality in the right axilla, however, clinical correlation is recommended. This exam was interpreted at Station ID: [id number]. Electronically Signed By: Delta kuhn/rosangela:07/21/2020 16:30:03 letter sent: Clinical Evaluation Ultrasound BI-RADS: 1 Negative
--- NOTE | 2020-07-21 15:01 | DI.MG.S_ITS ---
MALE BILATERAL DIGITAL DIAGNOSTIC MAMMOGRAM 3D/2D: 07/21/2020 CLINICAL: Right lump. Comparison is made to exams dated: 01/30/2019 mammogram and 01/30/2019 [facility]. There is gynecomastia in both breasts. No significant masses, calcifications, or other findings are seen in either breast. IMPRESSION: INCOMPLETE: NEEDS ADDITIONAL IMAGING EVALUATION There is no abnormality seen in the right axilla to correspond with the palpable abnormality in the right axilla, however, ultrasound is recommended. This exam was interpreted at Station ID: [id number]. NOTE: For mammograms, a report in lay terms will be sent to the patient. Approximately 15% of breast malignancies will not be visualized mammographically. In the management of a palpable breast mass, a negative mammogram must not discourage biopsy of a clinically suspicious lesion. Electronically Signed By: Delta kuhn/rosangela:07/21/2020 16:22:38 ACR BI-RADS Category 0: Incomplete [id number]
== END ==
PROVIDERS: PCP Family Medicine; Referring Provider Family Medicine; Visit Provider Family Medicine
DX: R92.8 Other abnormal and inconclusive findings on diagnostic imaging of breast (principal); N63.31 Unspecified lump in axillary tail of the right breast; N62 Hypertrophy of breast
CPT/HCPCS: 76882; 77066; G0279

== ENCOUNTER → 2020-07-31 14:53 | Outpatient (CLI) | payer OTHER, SELFPAY ==
[2020-06-18 19:34] VITALS: BMI 30.7
--- NOTE | 2020-07-31 | DI.ECHO.S_ITS ---
[place] [facility]---------+ [facility] +---------+ : : [address] : : : : [id number] : : : : Phone: [phone]+ Echocardiogram Report + + :Name: ANTIONE QURESHI Study Date: 07/31/2020 Height: 68 in : :[facility] ReadingLocation: Weight: 200 lb : : Gender: Male BSA: 2.0 m2 : :: 1935 Age: 84 yrs BP: 140/82 mmHg: :Reason For Study: CEREBRAL INFARCTION : :Ordering Physician: CELSA, : :RICH Tobin Performed By: Vernell Reyes : :Referring: RICH STEEN : + + Interpretation Summary The left ventricle is normal in size and wall thickness. The ejection fraction is estimated to be 60-65%. LVEF has not changed. There has been no significant change since the previous exam. Diastolic parameters suggest a relaxation abnormality of the left ventricle, consistent with probable normal filling pressures. The right ventricle is normal in size and function. The right ventricular systolic pressure is estimated to be at least 33 mmHg based on an estimated right atrial pressure of 3 mm Hg. The left atrial size is normal. Right atrial size is normal. There is no significant valvular heart disease. The ascending aorta is mildly enlarged. Procedure: A two-dimensional transthoracic echocardiogram with color flow and Doppler was performed. The study quality was technically adequate. Comparison is made with the echocardiogram of 09/18/2018. The patient was in sinus rhythm with heart rates between 59-68 bpm during the exam. Left Ventricle: The left ventricle is normal in size and wall thickness. The ejection fraction is estimated to be 60-65%. There has been no significant change since the previous exam. Diastolic parameters suggest a relaxation abnormality of the left ventricle, consistent with probable normal filling pressures. Right Ventricle: The right ventricle is normal in size and function. Atria: The left atrial size is normal. Right atrial size is normal. There is no Doppler evidence for an interatrial shunt. Mitral Valve: The mitral valve is normal in structure and function. There is mild mitral annular calcification. There is trace mitral regurgitation. Aortic Valve: The aortic valve is mildly calcified. The aortic valve opens well. There is no aortic valve stenosis. There is no aortic regurgitation. Tricuspid Valve: The tricuspid valve is normal in structure and function. There is trace tricuspid regurgitation. The right ventricular systolic pressure is estimated to be at least 33 mmHg based on an estimated right atrial pressure of 3 mm Hg. Pulmonic Valve: The pulmonic valve leaflets are thin and pliable; valve motion is normal. There is no pulmonic valvular regurgitation. There is no significant valvular heart disease. Great Vessels: The aortic root is normal size. The ascending aorta is mildly enlarged. The IVC is of normal diameter and collapses greater than 50% with a sniff. This suggests a low right atrial pressure of 3 mm Hg. Pericardium/ Pleura There is no pericardial effusion. There is no pleural effusion. MMode/2D Measurements & Calculations LVIDd: 4.8 cm LVOT diam: 2.5 cm LVIDs: 3.0 cm Ao root diam: 3.6 cm FS: 37.7 % asc Aorta Diam: 3.6 cm IVSd: 0.87 cm Ao Arch Diam (Prox Trans): 2.8 cm LVPWd: 0.88 cm LV jain. diameter/BSA (cm/m^2): 2.4 LV sys. diameter/BSA (cm/m^2): 1.5 LA A2 area: 15.4 cm2 RA long axis: 5.5 cm LA A4 area: 16.5 cm2 RA area: 15.7 cm2 LA length (vol): 5.6 cm RA vol: 38.3 ml LA vol: 38.2 ml RA : 18.8 ml/m2 LA vol index: 18.7 ml/m2 IVC diam: 1.5 cm RVD1 (basal): 3.4 cm TAPSE: 1.9 cm Doppler Measurements & Calculations Ao V2 max: 167.9 cm/sec LVOT Max Venkatesh: 130.3 cm/sec Ao V2 mean: 115.2 cm/sec LV V1 max P.8 mmHg Ao max P.3 mmHg LV V1 VTI: 26.3 cm Ao mean P.9 mmHg SEBASTIAN(I,D): 4.0 cm2 Ao V2 VTI: 31.9 cm SEBASTIAN(V,D): 3.7 cm2 sev ratio: 0.82 SEBASTIAN indexed to BSA (cm^2/m^2): 1.9 MV E max venkatesh: 60.3 cm/sec TR max venkatesh: 273.9 cm/sec MV A max venkatesh: 98.7 cm/sec TR max P.0 mmHg MV E/A: 0.61 PA V2 max: 132.4 cm/sec Med Peak E' Venkatesh: 5.1 cm/sec PA V2 mean: 90.9 cm/sec E/E' med: 11.9 PA mean P.7 mmHg Lat Peak E' Venkatesh: 8.6 cm/sec PA pr(Accel): 34.0 mmHg E/E' lat: 7.0 E/e' average: 9.5 MV dec time: 0.36 sec SV(LVOT): 126.6 ml Reading Physician:06:09 PM
== END ==
PROVIDERS: PCP Family Medicine; Referring Provider Family Medicine; Visit Provider Family Medicine
DX: I63.9 Cerebral infarction, unspecified (principal)
CPT/HCPCS: 93306

== ENCOUNTER 2020-11-27 14:09 | Observation (INO) | payer OTHER, SELFPAY ==
[2020-06-18 19:34] VITALS: BMI 30.7
[2020-11-27] VITALS (10 sets, daily range): BP systolic 127–196; BP diastolic 75–101; PULSE 55–68; RESP 12–35; TEMP 35.8–37.1; O2SAT 93–99; BMI 31.3; BMI 31.5
--- NOTE | 2020-11-27 | DI.ECHO.S_ITS ---
[place] [facility]---------+ [facility] +---------+ : : [address] : [address] : : : : [address] : : : : Phone: [phone]+ Echocardiogram Report + + :Name: ANTIONE QURESHI Study Date: 11/28/2020 Height: 68 in : :[facility] ReadingLocation: Weight: 206 lb : : Gender: Male BSA: 2.1 m2 : :: 1935 Age: 85 yrs BP: 109/66 mmHg: :Reason For Study: TIA : :Ordering Physician: CELSA, : :RICH Tobin Performed By: Oleg Funez : :Referring: RICH STEEN : + + Interpretation Summary The left ventricle is normal in size. The ejection fraction is estimated to be 60-65%. There is no LV thrombus. There has been no significant change in LVEF since the previous exam. The right ventricle is normal in size and function.TAPSE: 1.8 cm There is discrete nodular thickening of the non- coronary cusp. This was seen in September 18, 2018 echo as well. There is mild tricuspid regurgitation. The right ventricular systolic pressure is estimated to be at least 40 mmHg based on an estimated right atrial pressure of 3 mm Hg. Compared to the prior echo exam, there has been an increase in the severity of pulmonary hypertension. Mild atherosclerotic plaque(s) in the aortic arch. Procedure: A two-dimensional transthoracic echocardiogram with color flow and Doppler was performed. The study quality was technically adequate. Comparison is made with the echocardiogram of 07/31/2020. The patient was in sinus bradycardia with heart rates between 53-57 bpm during the exam. The patient had a bundle branch block rhythm during the exam. Left Ventricle: The left ventricle is normal in size. Proximal septal thickening is noted. There is no echo evidence for significant left ventricular outflow tract obstruction. There is no thrombus. Left ventricular systolic function is normal. The ejection fraction is estimated to be 60-65%. There has been no significant change since the previous exam. There are no focal wall motion abnormalities. MV E/A: 0.82 Med Peak E' Venkatesh: 4.4 cm/sec E/E' med: 19.7. Right Ventricle: The right ventricle is normal in size and function. Atria: Both atria are normal in size. Both atria have remained unchanged in size since the prior echo exam. There is no Doppler evidence for an interatrial shunt. Mitral Valve: There is mild mitral annular calcification. There is trace mitral regurgitation. Aortic Valve: There is mild aortic valve sclerosis. There is discrete nodular thickening of the non- coronary cusp. The aortic valve is trileaflet. There is no aortic valve stenosis. No aortic regurgitation is present. Tricuspid Valve: The tricuspid valve is normal. There is mild tricuspid regurgitation. The right ventricular systolic pressure is estimated to be at least 40 mmHg based on an estimated right atrial pressure of 3 mm Hg. Compared to the prior echo exam, there has been an increase in the severity of pulmonary hypertension. Pulmonic Valve: The pulmonic valve is normal in structure and function. There is trace pulmonic regurgitation. Great Vessels: The aortic root is normal size. The dimensions of the ascending aorta are normal. Mild atherosclerotic plaque(s) in the aortic arch. The IVC is of normal diameter and collapses greater than 50% with a sniff. This suggests a low right atrial pressure of 3 mm Hg. Pericardium/ Pleura There is no pericardial effusion. There is no pleural effusion. MMode/2D Measurements & Calculations LVIDd: 5.3 cm LVOT diam: 2.5 cm LVIDs: 3.3 cm Ao root diam: 3.5 cm FS: 37.2 % asc Aorta Diam: 3.5 cm IVSd: 0.77 cm LVPWd: 0.97 cm LV jain. diameter/BSA (cm/m^2): 2.6 LV sys. diameter/BSA (cm/m^2): 1.6 LA A2 area: 17.8 cm2 RA long axis: 5.5 cm LA A4 area: 16.3 cm2 RA area: 15.6 cm2 LA length (vol): 6.2 cm RA vol: 37.7 ml LA vol: 39.6 ml RA : 18.2 ml/m2 LA vol index: 19.1 ml/m2 TAPSE: 1.8 cm Doppler Measurements & Calculations Ao V2 max: 154.1 cm/sec LVOT Max Venkatesh: 122.6 cm/sec Ao V2 mean: 111.5 cm/sec LV V1 max P.0 mmHg Ao max P.5 mmHg LV V1 VTI: 26.4 cm Ao mean P.5 mmHg SEBASTIAN(I,D): 3.8 cm2 Ao V2 VTI: 33.1 cm SEBASTIAN(V,D): 3.8 cm2 sev ratio: 0.80 SEBASTIAN indexed to BSA (cm^2/m^2): 1.8 MV E max venkatesh: 86.5 cm/sec TR max venkatesh: 303.9 cm/sec MV A max venkatesh: 105.0 cm/sec TR max P.0 mmHg MV E/A: 0.82 Med Peak E' Venkatesh: 4.4 cm/sec E/E' med: 19.7 Lat Peak E' Venkatesh: 8.4 cm/sec E/E' lat: 10.3 E/e' average: 15.0 MV dec time: 0.21 sec SV(LVOT): 126.1 ml Reading Physician:11:42 AM
--- NOTE | 2020-11-27 | DI.MRI.S_ITS ---
PROCEDURE: MR STROKE Pre- and post-contrast brain MRI, non-contrast brain MR angiogram, pre- and postcontrast neck MR angiogram INDICATIONS: TIA/CVA TECHNIQUE: Brain: Noncontrast axial T1 spin echo, axial T2 fast spin echo, sagittal and axial FLAIR, coronal T2 fast spin echo, axial gradient echo, axial diffusion and ADC through the brain. After the administration of contrast, axial 3D VIBE of the cranial vasculature and brain. Brain MRA: Non-contrast 3-D time of flight MR angiogram, with multiple xotwrdz-kywjeqcyj-epnjnugzrl (MIP) reformats performed. Neck MRA: Axial and sagittal TruFISP through the neck. Coronal dynamic MR angiogram during administration of contrast in the arterial and venous phases, with 3-dimenstional bqjrabe-xyfdbkhzn-xwygkqgsnx (MIP) reformats constructed from subtraction images. COMPARISON: [facility], , MR STROKE, 06/19/2020, 10:06. FINDINGS: Image quality: Excellent. BRAIN: CSF spaces: Ventricles are normal in size and shape. Basal cisterns are patent. No extra-axial fluid collections. Brain: No intracranial bleeds or mass effects. Tavares-white matter interface is normal. Diffusion weighted images show no acute ischemic insults. Brainstem appears normal. Normal intravascular flow voids are present. No abnormal intracranial enhancement. Brain parenchymal volume loss and chronic small vessel ischemic change is stable compared to prior study on 06/19/2020. Skull and face: Calvarial marrow signal is normal. Orbits appear normal. Bilateral lens replacements are noted. Sinuses: Moderate mucosal thickening in the ethmoid air cells. There is a mucosal retention cyst in the right maxillary sinus. Small mucosal retention cysts in the left maxillary sinus. The paranasal sinuses are otherwise well aerated. The mastoid air cells are well aerated. BRAIN MR ANGIOGRAM: Anterior circulation: Intracranial internal carotid arteries are normal in size and enhancement. The flow within the paired anterior cerebral arteries is normal and symmetric. The flow within the middle cerebral arteries is normal and symmetric. The anterior communicating artery is seen. No stenoses, occlusions, or aneurysms. Posterior circulation: The visualized portions of the vertebral arteries demonstrate normal caliber, and join to form a normal appearing basilar artery. The flow within the posterior cerebral arteries is normal and symmetric. No stenoses, occlusions, or aneurysms. NECK MR ANGIOGRAM: Carotids: Great vessels demonstrate a conventional anatomy as they arise from the aortic arch. The origins of the common carotid arteries appear patent. The calibers and courses of both common carotid arteries are normal. The bifurcation regions appear normal bilaterally. The internal carotid arteries demonstrate normal course and caliber. Posterior circulation: The origins of the vertebral arteries appear patent. More superior portions of both vertebral arteries demonstrate normal course and caliber, and join to form a normal appearing basilar artery. Miscellaneous: Subclavian arteries appear patent. Pre-contrast images through the neck show no soft tissue abnormalities. IMPRESSION: BRAIN MRI: 1. No acute intracranial abnormality. 2. No acute or subacute infarction. 3. Age appropriate parenchymal volume loss and chronic small vessel ischemic change. BRAIN MR ANGIOGRAM: Patent with no significant stenosis. NECK MR ANGIOGRAM: Patent with no significant stenosis. Dictated by: Genaro Key M.D. on 11/28/2020 at 8:11 Approved by: Genaro Key M.D. on 11/28/2020 at 8:19
--- NOTE | 2020-11-27 14:17 | DI.CT.S_ITS ---
PROCEDURE: CT HEAD/BRAIN WO CON INDICATIONS: stroke symptoms, resolved TECHNIQUE: Noncontrast 4.5 mm thick angled axial sections acquired from the foramen magnum to the vertex, with coronal and sagittal reformats. For radiation dose reduction, the following was used: automated exposure control, adjustment of mA and/or kV according to patient size. COMPARISON: [facility], CT, HEAD WITHOUT CONTRAST, 11/13/2006, 15:45. FINDINGS: Cerebrum, Cerebellum and Brainstem: Moderate cerebral and cerebellar volume loss as well as minimal multifocal hypoattenuation in the deep and subcortical white matter present. No acute hemorrhage or mass effect. Old lacunar infarct noted in the right lentiform nucleus. Basal cisterns and foramen magnum are clear. Ventricles: Appropriate in size and position given the amount of cerebral atrophy. No evidence of hydrocephalus. Skull Base: The bony sella, pituitary gland and infundibulum are unremarkable. Clivus and craniovertebral relationships are appropriate. Visualized portions of external auditory canals and tympanic cavities are within normal limits. Calvarium and Scalp: No scalp soft tissue swelling. The underlying calvarium is intact without skull fracture or lytic lesion. Paranasal Sinuses: Unremarkable as visualized. Small retention cyst noted in the right maxillary sinus. Mastoids: Unremarkable as visualized. No mastoid effusion present. Other: Atherosclerotic calcification in the cavernous portions of the distal internal carotid arteries are noted. IMPRESSION: Atrophy and chronic ischemic change without acute hemorrhage or mass effect. Old right basal ganglia lacunar infarct. Approved by: Paulo Brown M.D. on 11/27/2020 at 13:38
[2020-11-27 14:27] LABS: Add Manual Diff / Slide Review NO; Basophils Absolute Auto 0 /uL (0-100); Basophils Percent Auto 0.3 % (0-2); Eosinophils Absolute Auto 300 /uL (0-450); Eosinophils Percent Auto 4.3 % (2-4); Hematocrit 47.3 % (41-53); Hemoglobin 15.7 g/dL (13.5-17.5); Lymphocytes Absolute Auto 2100 /uL (1100-4500); Lymphocytes Percent Auto 30.4 % (25-40); Mean Corpuscular HGB Conc 33.2 % (30-36); Mean Corpuscular Hemoglobin 30.5 PG (26-34); Mean Corpuscular Volume 91.8 fL (80-100); Monocytes Absolute Auto 600 /uL (0-900); Neutrophils Absolute Auto 4000 /uL (1500-7000); Platelet Count 224 X10^3/uL (150-400); Red Blood Cell Count 5.16 X10^6/uL (4.5-5.9); Red Cell Distribution Width 13.1 % (11.6-14.8)
--- NOTE | 2020-11-27 14:33 | ED_ITS ---
HPI - Neuro Symptoms/Deficit General Chief Complaint: Neuro Symptoms/Deficit Stated Complaint: Poss TIA Time Seen by Provider: 11/27/20 14:16 Source: patient Mode of arrival: Ambulatory Limitations: no limitations History of Present Illness HPI Narrative: 85-year-old male former smoker with history of hypertension and hyperlipidemia as well as former TIA presents with his in the chief complaint of a 15 minute episode of confusion, trouble finding words, possible slurring of words and some left-sided headache. He had been in his normal state of health until this episode which lasted about 15 minutes and had largely resolved prior to his arrival. He did have some residual left-sided headache that was still present when he got here but resolved soon thereafter. He denies missing any medications and states he had no other focal findings such as trouble with vision or extremity numbness, weakness or tingling. He has had no abnormal balance. He states that he has for gotten his aspirin for probably the last 5 days but took two 81 mg tablets prior to his arrival. He denies any chest pain or shortness of breath. On Anticoagulants: No Related Data Home Medications Medication Instructions Recorded Confirmed allopurinol 300 mg tablet 150 mg PO DAILY 06/18/20 06/18/20 Previous Rx's Medication Instructions Recorded epinephrine 0.3 mg/0.3 mL 0.3 mg IM X1 #1 syr 10/16/15 injection, auto-injector amlodipine 5 mg tablet (Norvasc) 5 mg PO QDAY #90 tab 12/21/19 hydrochlorothiazide 25 mg tablet 25 mg PO DAILY #90 tab 12/21/19 omeprazole 20 mg capsule,delayed 20 mg PO QDAY #90 cap 04/09/20 release aspirin 81 mg tablet,delayed 81 mg PO DAILY #30 tab 06/19/20 release atorvastatin 40 mg tablet 40 mg PO BEDTIME #30 tab 06/19/20 Allergies Allergy/AdvReac Type Severity Reaction Status Date / Time No Known Drug Allergies Allergy Verified 11/27/20 14:22 Review of Systems Review of Systems Narrative: GENERAL: Denies chills, fatigue, malaise, fever, sweats. HEENT: Denies sinus pain, ear pain, sore throat, difficulty swallowing, dizziness. RESPIRATORY: Denies dyspnea, cough, wheezing, hemoptysis, sputum. CARDIOVASCULAR: Denies chest pain, palpitations, orthopnea, edema, GASTROINTESTINAL: Denies nausea, vomiting, abdominal pain, diarrhea, constipation, melena. : Denies dysuria, frequency, incontinence, hematuria, urinary retention. MUSCULOSKELETAL: See HPI SKIN: Denies rash, skin lesions, or other NEUROLOGIC: See HPI PSYCHIATRIC: No concerning psychosocial issues. 12 point review of systems is negative except for those stated above Hematologic/Lymphatic On Anticoagulants: No 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) Chicken pox Dementia Diverticular disease Encysted hydrocele Gout (~1999) Hearing deficit Hearing loss (~1994) Hiatal hernia Hyperlipidemia Hypertension Measles Mumps Shoulder pain (~1999) Stroke (~2006) Vision disorder Surgical History Anesthesia Status post colonoscopy Status post rotator cuff repair (~2004) Umbilical hernia (~2011) Family History Brother Age: 80 High cholesterol Father Mental health problem Dementia Mother Hypertension High cholesterol Social History household members: significant other Smoking Status: Former smoker Smoking Status: Former smoker alcohol intake frequency: 3 or more drinks per day Substance Use Type: does not use Exam Narrative Exam Narrative: GENERAL: [85] year old patient appears stated age. Well- developed patient, in mild distress. HEAD: Atraumatic. Normocephalic. EYES: Pupils equal round and reactive. Extraocular motions intact. No scleral icterus. No injection or drainage. ENT: Nose without bleeding, purulent drainage. Throat without erythema, tonsillar hypertrophy or exudate. Airway patent. NECK: Trachea midline. Non tender CARDIOVASCULAR: Regular rate and rhythm without murmurs, gallops, or rubs. RESPIRATORY: Clear to auscultation. Breath sounds equal bilaterally. No wheezes, rales, or rhonchi. GASTROINTESTINAL: Abdomen soft, non-tender, nondistended. EXTREMITIES: No edema or joint tenderness. BACK: Nontender without deformity or crepitance. No flank tenderness. NEURO: AOx3. SKIN: No rash or erythema of visible areas NIH Stroke Scale 1a. LOC: Patient is alert and keenly responsive (0) 1b. LOC Questions: Patient answers both LOC questions accurately (0) 1c. LOC Commands: Patient performs both tasks correctly (0) 2. Best Gaze: Normal (0) 3. Visual: No visual loss (0) 4. Facial palsy: Normal symmetrical movements (0) 5. Motor arm: No drift (0) 6. Motor leg: No drift (0) 7. Limb ataxia: Absent (0) 8. Sensory: Normal (0) 9. Best language: No aphasia; normal (0) 10. Dysarthria: Normal (0) 11. Extinction and inattention: No abnormality (0) NIHSS: 0 Initial Vital Signs Initial Vital Signs: Vital Signs Temperature 96.5 F L 11/27/20 14:17 Pulse Rate 59 L 11/27/20 14:17 Respiratory Rate 18 11/27/20 14:17 Blood Pressure 196/101 H 11/27/20 14:17 Pulse Oximetry 99 11/27/20 14:17 Course Orders Ordered: ED Orders 11/27/20 14:17 CT head/brain wo con Stat 11/27/20 14:18 Urine Drug Screen, Rapid Stat EKG-12 Lead Stat 11/27/20 14:20 Basic Metabolic Panel Stat Complete Blood Count AUTO DIFF Stat Troponin & CK Cardiac Panel Stat 11/27/20 15:09 COVID19 - ADMIT ([employer] swab/PCR) Stat Sodium Chloride (Normal Saline 0.9%) 1,000 mls @ 150 mls/hr IV CONT MARTÍN Last Admin: 11/27/20 14:52 Dose: 150 mls/hr Documented by: Discontinued Medications Aspirin (Aspirin Ec 81 Mg Tablet) 162 mg PO NOW ONE Stop: 11/27/20 15:07 Last Admin: 11/27/20 15:15 Dose: 162 mg Documented by: Vital Signs Vital signs: Vital Signs - 8 hr 11/27/20 14:17 Temperature 96.5 F L Pulse Rate 59 L Respiratory Rate 18 Blood Pressure 196/101 H Pulse Oximetry 99 MDM - Neuro Symptoms/Deficit Lab Data Result diagrams: 11/27/20 14:20 11/27/20 14:20 Labs: Lab Results 11/27/20 11/27/20 11/27/20 Range/Units 14:20 14:20 14:20 WBC 7.0 (4.5-11.0) X10^3/uL RBC 5.16 (4.5-5.9) X10^6/uL Hgb 15.7 (13.5-17.5) g/dL Hct 47.3 (41-53) % MCV 91.8 (80-100) fL MCH 30.5 (26-34) PG MCHC 33.2 (30-36) % RDW 13.1 (11.6-14.8) % Plt Count 224 (150-400) X10^3/uL Neut % (Auto) 57.0 (50-75) % Lymph % (Auto) 30.4 (25-40) % Kemper % (Auto) 8.0 (3-14) % Eos % (Auto) 4.3 H (2-4) % Baso % (Auto) 0.3 (0-2) % Neut # (Auto) 4000 (0774-7551) /uL Lymph # (Auto) 2100 (2925-8769) /uL Kemper # (Auto) 600 (0-900) /uL Eos # (Auto) 300 (0-450) /uL Baso # (Auto) 0 (0-100) /uL Sodium 135 L (137-145) mmol/L Potassium 4.3 (3.4-5.1) mmol/L Chloride 98 (98-107) mmol/L Carbon Dioxide 33 H (22-32) mmol/L BUN 16 (9-20) mg/dL Creatinine 0.72 (0.66-1.25) mg/dL Estimated GFR > 60.0 (>60) mL/min BUN/Creatinine Ratio 22.2 H (6-22) Glucose 92 (80-110) mg/dL Calcium 9.6 (8.4-10.2) mg/dL Total Creatine Kinase 84 (55-170) U/L CK-MB (CK-2) TNP CK-MB (CK-2) Rel Index TNP Troponin I < 0.012 (0.01-0.034) ng/mL Imaging Data CT scan - head: Radiologist's Impression: [address] [address] [address] Scan Report Signed Patient: Tyrone Mac MR#: [id number] : 1935 Acct:[id number] Age/Sex: 85 / M Date of Service: 11/27/20 Loc: ED Accession Number: [id number] ?? Procedure: CT head/brain wo con Ordering Provider: Dick Enrique D.O. PROCEDURE:? CT HEAD/BRAIN WO CON ? INDICATIONS:? stroke symptoms, resolved ? TECHNIQUE:? Noncontrast 4.5 mm thick angled axial sections acquired from the foramen magnum to the vertex, with coronal and sagittal reformats.? For radiation dose reduction, the following was used:? automated exposure control, adjustment of mA and/or kV according to patient size.? ? COMPARISON:? [facility], CT, HEAD WITHOUT CONTRAST, 11/13/2006, 15:45. ? FINDINGS: ? Cerebrum, Cerebellum and Brainstem:? Moderate cerebral and cerebellar volume loss as well as minimal multifocal hypoattenuation in the deep and subcortical white matter present.? No acute hemorrhage or mass effect.? Old lacunar infarct noted in the right lentiform nucleus.? Basal cisterns and foramen magnum are clear. ? Ventricles:? Appropriate in size and position given the amount of cerebral atrophy.? No evidence of hydrocephalus. ? Skull Base:? The bony sella, pituitary gland and infundibulum are unremarkable.? Clivus and craniovertebral relationships are appropriate.? Visualized portions of external auditory canals and tympanic cavities are within normal limits. ? Calvarium and Scalp:? No scalp soft tissue swelling.? The underlying calvarium is intact without skull fracture or lytic lesion. ? Paranasal Sinuses:? Unremarkable as visualized.? Small retention cyst noted in the right maxillary sinus. ? Mastoids:? Unremarkable as visualized.? No mastoid effusion present. ? Other:? Atherosclerotic calcification in the cavernous portions of the distal internal carotid arteries are noted. ? ? IMPRESSION:? ? Atrophy and chronic ischemic change without acute hemorrhage or mass effect. Old right basal ganglia lacunar infarct. ? ? ? Approved by: Paulo Brown M.D. on 11/27/2020 at 13:38? ECG Data Interpretation: EKG is normal sinus rhythm rate [59] and free of any signs of ischemia or ectopy. No ST segmental elevation or depression. No T wave inversio ns. Right bundle-branch block MDM Narrative Medical decision making narrative: Patient was relatively hypertensive on arriva l and still had headache, as his blood pressure improved so did the pain. However, his other neurologic symptoms had resolved prior to arrival which makes it difficult to correlate blood pressure with other symptoms. Patient has risk for TIA and will require hospitalization for further evaluation Discharge Plan Departure Patient Disposition: Admitted as Observation Clinical Impression: Transient cerebral ischemia Qualifiers: Transient cerebral ischemia type: unspecified Qualified Code(s): G45.9 - Transient cerebral ischemic attack, unspecified Admit Date/Time: 11/27/20 15:16
[2020-11-27 14:39] LABS: Creatine Kinase 84 U/L (55-170)
[2020-11-27 14:40] LABS: BUN Creatinine Ratio 22.2 (6-22); Blood Urea Nitrogen 16 mg/dL (9-20); Calcium 9.6 mg/dL (8.4-10.2); Carbon Dioxide 33 mmol/L (22-32); Chloride 98 mmol/L (98-107); Estimated Glomerular Filt Rate > 60.0 mL/min (>60); Glucose 92 mg/dL (80-110); HEMOLYSIS 79 (0-50); Potassium 4.3 mmol/L (3.4-5.1); Sodium 135 mmol/L (137-145)
[2020-11-27 14:52] LABS: Troponin I < 0.012 ng/mL (0.01-0.034)
[2020-11-27] MEDS: SODIUM CHLORIDE 0.9% 1,000 ML 150 ML IV (14:52)
[2020-11-27] MEDS: ASPIRIN EC 81 MG TABLET 162 MG PO (15:15)
[2020-11-27 15:35] LABS: UR Morphine/Opiate cutoff 300 Negative (Negative); Ur Creatinine Normal (Normal); Ur Specific Gravity Normal (Normal); Urine Amphetamines Negative (Negative); Urine Barbiturates Negative (Negative); Urine Benzodiazepines Negative (Negative); Urine Cocaine Negative (Negative); Urine MDMA Negative (Negative); Urine Methadone Negative (Negative); Urine Methamphetamines Negative (Negative); Urine Oxycodone Negative (Negative); Urine Phencyclidine Negative (Negative); Urine Tetrahydrocannabinol Negative (Negative); Urine Tricyclic Antidepressant Negative (Negative); Urine pH Normal (Normal)
--- NOTE | 2020-11-27 16:47 | PM.HP.1 ---
History of Present Illness History of Present Illness Date Patient Seen: 11/27/20 Time Patient Seen: 16:48 Chief complaint: Poss TIA Narrative: Pt presented to ED with CC of jhon feeling this afternoon around 1pm [place] he became acutely discomboulated and disoriented lost all his words for locations and objects unable to make sense to his sister although she made sense to him. This lasted about ten - fifteen minutes before evidently resolving completely. In ED he had a benign exam normal NIHSS and he felt back to normal. Notes that he has not been taking his ASA 81 for the last week and was found to be moderately hypertensive. Similar presentation about 6 months ago with aphasia and confusion which resolved, at that time he had also bee off ASA 81 for a week. Now feels back to normal has been up and ambulating per he seems his usual self now as well. Apart from this event he has felt basically fine no concerns except for some mildly worsened heartburn this last week. Took two ASA 81 prior to presentation, got another two in ED. 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) Chicken pox Dementia Diverticular disease Encysted hydrocele Gout (~1999) Hearing deficit Hearing loss (~1994) Hiatal hernia Hyperlipidemia Hypertension Measles Mumps Shoulder pain (~1999) Stroke (~2006) Vision disorder Surgical History Anesthesia Status post colonoscopy Status post rotator cuff repair (~2004) Umbilical hernia (~2011) Family & Social History Family History Brother Age: 80 High cholesterol Father Mental health problem Dementia Mother Hypertension High cholesterol Social History: household members significant other Safety & Behavioral: Feels Safe in Current Yes Environment Been Physically Hurt or No Threatened By a Person Tobacco & Substance use: Smoking Status Former smoker alcohol intake frequency 3 or more drinks per day Substance Use Type does not use Meds Home Medications and Allergies Home Medications Medication Instructions Recorded Confirmed Type epinephrine 0.3 mg/0.3 mL 0.3 mg IM X1 #1 syr 10/16/15 06/18/20 Rx injection, auto-injector amlodipine 5 mg tablet (Norvasc) 5 mg PO QDAY #90 tab 12/21/19 06/18/20 Rx hydrochlorothiazide 25 mg tablet 25 mg PO DAILY #90 tab 12/21/19 06/18/20 Rx omeprazole 20 mg capsule,delayed 20 mg PO QDAY #90 cap 04/09/20 06/18/20 Rx release allopurinol 300 mg tablet 150 mg PO DAILY 06/18/20 06/18/20 History aspirin 81 mg tablet,delayed 81 mg PO DAILY #30 tab 06/19/20 Rx release atorvastatin 40 mg tablet 40 mg PO BEDTIME #30 tab 06/19/20 Rx Allergies Allergy/AdvReac Type Severity Reaction Status Date / Time No Known Drug Allergies Allergy Verified 11/27/20 14:22 Review of Systems Review of Systems Narrative: all systems reviewed and negative except as otherwise documented in HPI Exam Vital Signs (past 8 hours): - 11/27/20 14:14 11/27/20 14:17 11/27/20 14:30 Temperature 96.5 F L Pulse Rate 68 59 L 59 L Respiratory Rate 35 H 18 12 Blood Pressure 196/101 H 196/101 H 166/91 H Pulse Oximetry 96 99 97 11/27/20 15:00 11/27/20 15:16 11/27/20 15:30 Temperature Pulse Rate 60 58 L 58 L Respiratory Rate 17 17 14 Blood Pressure 183/92 H 145/82 H 161/92 H Pulse Oximetry 97 97 96 11/27/20 16:00 11/27/20 16:20 Temperature 97.1 F L Pulse Rate 59 L 61 Respiratory Rate 17 18 Blood Pressure 162/89 H 152/91 H Pulse Oximetry 96 Oxygen Delivery Method Room Air Narrative Exam Narrative: pleasant fellow lying in bed with in armchair Const General: cooperative, healthy appearing, comfortable, well developed and No acute distress [facility] Head: normal to inspection Ears: hearing grossly normal bilaterally Nose: external nose normal Eyes General: appearance normal, both eyes and all related structures Resp Auscultation: clear to auscultation bilaterally Cardio Rate: regular rate Rhythm: regular rhythm Heart Sounds: S1 normal and S2 normal GI Inspection: normal to inspection Palpation: soft Auscultation: normal bowel sounds Skin General: no rashes or lesions noted Neuro General: patient alert, patient awake, patient oriented x3, tone normal, moves all extremities, CN's II-XI intact bilaterally and deep tendon reflexes 2+ bilaterally Psych Appearance: grossly normal and well kempt Mental Status: mental status grossly normal Speech and Movement: speech and movement normal Mood: congruent mood Affect: normal affect Attitude: cooperative Thought Process: normal Thought Content: normal Judgment: judgment good Objective Labs Result Diagrams: 11/27/20 14:20 11/27/20 14:20 Labs: Laboratory Results - last 24 hr 11/27/20 11/27/20 11/27/20 14:20 14:20 14:20 WBC 7.0 RBC 5.16 Hgb 15.7 Hct 47.3 MCV 91.8 MCH 30.5 MCHC 33.2 RDW 13.1 Plt Count 224 Neut % (Auto) 57.0 Lymph % (Auto) 30.4 [place] % (Auto) 8.0 Eos % (Auto) 4.3 H Baso % (Auto) 0.3 Neut # (Auto) 4000 Lymph # (Auto) 2100 [place] # (Auto) 600 Eos # (Auto) 300 Baso # (Auto) 0 Sodium 135 L Potassium 4.3 Chloride 98 Carbon Dioxide 33 H BUN 16 Creatinine 0.72 Estimated GFR > 60.0 BUN/Creatinine Ratio 22.2 H Glucose 92 Calcium 9.6 Total Creatine Kinase 84 CK-MB (CK-2) TNP CK-MB (CK-2) Rel Index TNP Troponin I < 0.012 U Opiates 300ng/mL cut Ur Oxycodone Screen Urine Methadone Screen Ur Barbiturates Screen U Tricyclic Antidepress Ur Phencyclidine Scrn Ur Amphetamines Screen U Methamphetamines Scrn Ur MDMA Scrn (Ecstasy) U Benzodiazepines Scrn Urine Cocaine Screen U Marijuana (THC) Screen 11/27/20 15:15 WBC RBC Hgb Hct MCV MCH MCHC RDW Plt Count Neut % (Auto) Lymph % (Auto) [place] % (Auto) Eos % (Auto) Baso % (Auto) Neut # (Auto) Lymph # (Auto) [place] # (Auto) Eos # (Auto) Baso # (Auto) Sodium Potassium Chloride Carbon Dioxide BUN Creatinine Estimated GFR BUN/Creatinine Ratio Glucose Calcium Total Creatine Kinase CK-MB (CK-2) CK-MB (CK-2) Rel Index Troponin I U Opiates 300ng/mL cut Negative Ur Oxycodone Screen Negative Urine Methadone Screen Negative Ur Barbiturates Screen Negative U Tricyclic Antidepress Negative Ur Phencyclidine Scrn Negative Ur Amphetamines Screen Negative U Methamphetamines Scrn Negative Ur MDMA Scrn (Ecstasy) Negative U Benzodiazepines Scrn Negative Urine Cocaine Screen Negative U Marijuana (THC) Screen Negative Assessment & Plan Assessment & Plan narrative: #Transient neurologic symptoms with confusion Likely TIA/CVA symptoms resolved by time of admission, NIHSS zero CT head shows no acute abnormality got full dose ASA today will continue while inpatient ordered MRI, ECHO #Hypertension resume home medications with HCTZ, amlodipine prn hydralazine #Hyperlipidemia continue home atorvastatin #GERD continue PPI protonix while inpatient #Gout stable continue allopurinol IVF: none DVT ppx: lovenox sc Diet: Heart healthy Code status: Nickel Operator Spent With Patient Critical Care time: I spent a total of [] minutes of critical care time on this patient's care today; this time is exclusive of procedural time.
[2020-11-27 16:53] LABS: COVID19 - ADMIT (NP swab/PCR) Negative (Negative)
[2020-11-27] MEDS: AMLODIPINE 5 MG TABLET PO (20:30)
[2020-11-27] MEDS: ATORVASTATIN 20 MG TABLET 40 MG PO (20:30)
--- NOTE | 2020-11-27 22:28 | PC.NURSE ---
Admission note: patient arrived to floor, A&O, NIH screen done and was 0. VSS. Patient ambulated to BR w/ out any aid or difficulty.
--- NOTE | 2020-11-28 02:58 | PC.NURSE ---
Patient is alert and oriented with NIH of 0. Breath sounds CTA with RA sat of 93%. HRR w/telemetry reading of SB (rate 50's) + 1st degree AVB, BBB and prolonged QT. Denies nausea. BT hypoactive and abdomen is soft. Denies dysuria, frequency or urgency with urination. Able to turn self in bed and up to bathroom with SBA and is steady on feet; denies weakness. Denies pain. Declines use of SCD's so reminded to ankle wave when awake. Fall risk score is low.
[2020-11-28 03:00] VITALS: BP 113/72; PULSE 60; RESP 18; TEMP 36.7; O2SAT 94
[2020-11-28 05:59] LABS: Add Manual Diff / Slide Review NO; Basophils Absolute Auto 0 /uL (0-100); Basophils Percent Auto 0.5 % (0-2); Eosinophils Absolute Auto 300 /uL (0-450); Eosinophils Percent Auto 5.4 % (2-4); Hemoglobin 14.9 g/dL (13.5-17.5); Lymphocytes Absolute Auto 2000 /uL (1100-4500); Mean Corpuscular HGB Conc 33.2 % (30-36); Mean Corpuscular Hemoglobin 30.4 PG (26-34); Mean Corpuscular Volume 91.6 fL (80-100); Monocytes Absolute Auto 600 /uL (0-900); Monocytes Percent Auto 9.9 % (3-14); Neutrophils Absolute Auto 3000 /uL (1500-7000); Neutrophils Percent Auto 51.2 % (50-75); Platelet Count 213 X10^3/uL (150-400); Red Blood Cell Count 4.92 X10^6/uL (4.5-5.9); Red Cell Distribution Width 13.1 % (11.6-14.8); White Blood Cell Count 5.9 X10^3/uL (4.5-11.0)
[2020-11-28] MEDS: PANTOPRAZOLE DR 20 MG TABLET PO (06:05)
[2020-11-28 06:14] LABS: BUN Creatinine Ratio 18.3 (6-22); Blood Urea Nitrogen 13 mg/dL (9-20); Calcium 9.4 mg/dL (8.4-10.2); Carbon Dioxide 30 mmol/L (22-32); Chloride 103 mmol/L (98-107); Estimated Glomerular Filt Rate > 60.0 mL/min (>60); Glucose 96 mg/dL (80-110); HEMOLYSIS < 15 (0-50); Potassium 4.1 mmol/L (3.4-5.1); Sodium 137 mmol/L (137-145)
[2020-11-28 07:30] VITALS: BP 109/66; PULSE 59; RESP 16; TEMP 36.2; O2SAT 95
--- NOTE | 2020-11-28 08:26 | CM.DANOTE ---
DCP: Case received, EMR reviewed and met with patient. Introduced self and role. Was able to obtain information regarding patient's baseline activity status prior to hospitalization. DCP assessment completed with information currently available. Patient is an 85 year old male who admitted yesterday afternoon to the care of the hospitalist team. PCP: Dr. Lopez. Payer: confirmed: [facility] [employer]. Patient came to the hospital via private vehicle secondary to feeling disoriented, out of sorts. He had been at a cemetery with his sister, when these symptoms occurred. Patient is here for TIA, rule out CVA. He had an MRI last pm. Met with patient in his room. He was sitting up in bed, alert and oriented. Confirmed that he is independent at his baseline, he resides in [place] with his significant other, Flaquita. He also drives. He will be working with the therapy team today. P: DCP to continue to follow. Patient should be able to go home when stable, depending upon results of his test. He will also be working with the therapy team. Chcihi Gordon RN/Shop Assistant Discharge Planning/Care Management CM Discharge Assessment Start: 11/28/20 08:15 Freq: Status: Active Protocol: Document 11/28/20 08:15 (Rec: 11/28/20 08:26 [id number]) Discharge Planning Assessment Assigned Recycling Sorter Chichi Gordon RN/Shop Assistant Advance Directives? No History Provided By Patient,Medical Record Prior Living Arrangements House Household Members significant other Type of transporation used prior to Drives own vehicle admit Independent with ADL's Yes Is patient alert and oriented? Yes Caregiver for Another No Discharge Plan Home Transportation Arrangement Significant other Referrals Initiated None needed Whiteboard Updated in Patient Room with Yes name and ext. # of Recycling Sorter Review Status In Process Next Review Type Continued Stay Review
[2020-11-28] MEDS: ASPIRIN EC 325 MG TABLET PO (08:29)
[2020-11-28] MEDS: ENOXAPARIN 40 MG/0.4 ML SYRINGE SUBCUT (08:29)
[2020-11-28] MEDS: allopurinoL 100 MG TABLET 150 MG PO (08:29)
[2020-11-28] MEDS: hydroCHLOROthiazide 25 MG TABLET PO (08:29)
[2020-11-28] MEDS: SODIUM CHLORIDE 0.9% FLUSH 10 ML IV (08:30)
--- NOTE | 2020-11-28 09:39 | P.PN_ITS ---
Subjective Subjective Date Patient Seen: 11/28/20 Time Patient Seen: 09:39 Interval history: Feeling fine slept ok eating and eliminating ok. No more funny spells. MRI wnl. waiting for echo. Exam Vital Signs (past 8 hours): - 11/28/20 03:00 11/28/20 07:30 Temperature 98.0 F 97.2 F L Pulse Rate 60 59 L Respiratory Rate 18 16 Blood Pressure 113/72 109/66 Pulse Oximetry 94 95 Oxygen Delivery Method Room Air Oxygen Flow Rate 0 Objective Labs Result Diagrams: 11/28/20 05:49 11/28/20 05:49 Labs: Laboratory Results - last 24 hr 11/27/20 11/27/20 11/27/20 14:20 14:20 14:20 WBC 7.0 RBC 5.16 Hgb 15.7 Hct 47.3 MCV 91.8 MCH 30.5 MCHC 33.2 RDW 13.1 Plt Count 224 Neut % (Auto) 57.0 Lymph % (Auto) 30.4 [place] % (Auto) 8.0 Eos % (Auto) 4.3 H Baso % (Auto) 0.3 Neut # (Auto) 4000 Lymph # (Auto) 2100 [place] # (Auto) 600 Eos # (Auto) 300 Baso # (Auto) 0 Sodium 135 L Potassium 4.3 Chloride 98 Carbon Dioxide 33 H BUN 16 Creatinine 0.72 Estimated GFR > 60.0 BUN/Creatinine Ratio 22.2 H Glucose 92 Calcium 9.6 Total Creatine Kinase 84 CK-MB (CK-2) TNP CK-MB (CK-2) Rel Index TNP Troponin I < 0.012 U Opiates 300ng/mL cut Ur Oxycodone Screen Urine Methadone Screen Ur Barbiturates Screen U Tricyclic Antidepress Ur Phencyclidine Scrn Ur Amphetamines Screen U Methamphetamines Scrn Ur MDMA Scrn (Ecstasy) U Benzodiazepines Scrn Urine Cocaine Screen U Marijuana (THC) Screen SARS-CoV-2 (PCR) 11/27/20 11/27/20 11/28/20 15:15 15:20 05:49 WBC 5.9 RBC 4.92 Hgb 14.9 Hct 45.0 MCV 91.6 MCH 30.4 MCHC 33.2 RDW 13.1 Plt Count 213 Neut % (Auto) 51.2 Lymph % (Auto) 33.0 [place] % (Auto) 9.9 Eos % (Auto) 5.4 H Baso % (Auto) 0.5 Neut # (Auto) 3000 Lymph # (Auto) 2000 [place] # (Auto) 600 Eos # (Auto) 300 Baso # (Auto) 0 Sodium Potassium Chloride Carbon Dioxide BUN Creatinine Estimated GFR BUN/Creatinine Ratio Glucose Calcium Total Creatine Kinase CK-MB (CK-2) CK-MB (CK-2) Rel Index Troponin I U Opiates 300ng/mL cut Negative Ur Oxycodone Screen Negative Urine Methadone Screen Negative Ur Barbiturates Screen Negative U Tricyclic Antidepress Negative Ur Phencyclidine Scrn Negative Ur Amphetamines Screen Negative U Methamphetamines Scrn Negative Ur MDMA Scrn (Ecstasy) Negative U Benzodiazepines Scrn Negative Urine Cocaine Screen Negative U Marijuana (THC) Screen Negative SARS-CoV-2 (PCR) Negative 11/28/20 05:49 WBC RBC Hgb Hct MCV MCH MCHC RDW Plt Count Neut % (Auto) Lymph % (Auto) [place] % (Auto) Eos % (Auto) Baso % (Auto) Neut # (Auto) Lymph # (Auto) [place] # (Auto) Eos # (Auto) Baso # (Auto) Sodium 137 Potassium 4.1 Chloride 103 Carbon Dioxide 30 BUN 13 Creatinine 0.71 Estimated GFR > 60.0 BUN/Creatinine Ratio 18.3 Glucose 96 Calcium 9.4 Total Creatine Kinase CK-MB (CK-2) CK-MB (CK-2) Rel Index Troponin I U Opiates 300ng/mL cut Ur Oxycodone Screen Urine Methadone Screen Ur Barbiturates Screen U Tricyclic Antidepress Ur Phencyclidine Scrn Ur Amphetamines Screen U Methamphetamines Scrn Ur MDMA Scrn (Ecstasy) U Benzodiazepines Scrn Urine Cocaine Screen U Marijuana (THC) Screen SARS-CoV-2 (PCR) [facility] Medical History Actinic keratosis Asbestosis (~1964) Chicken pox Dementia Diverticular disease Encysted hydrocele Gout (~1999) Hearing deficit Hearing loss (~1994) Hiatal hernia Hyperlipidemia Hypertension Measles Mumps Shoulder pain (~1999) Stroke (~2006) Vision disorder Surgical History Anesthesia Status post colonoscopy Status post rotator cuff repair (~2004) Umbilical hernia (~2011) Family History Brother Age: 80 High cholesterol Father Mental health problem Dementia Mother Hypertension High cholesterol Social History household members: significant other Smoking Status: Former smoker Assessment & Plan Time Spent With Patient Critical Care time: I spent a total of [] minutes of critical care time on this patient's care today; this time is exclusive of procedural time.
--- NOTE | 2020-11-28 10:54 | PT.IIE ---
Surgical History (Last Reviewed 11/27/20 @ 15:17 by Dick Enrique DO) Anesthesia Status post colonoscopy Status post rotator cuff repair (~2004) Umbilical hernia (~2011) Medical History (Last Reviewed 11/27/20 @ 15:17 by Dick Enrique DO) Actinic keratosis Asbestosis (~1964) Chicken pox Dementia Diverticular disease Encysted hydrocele Gout (~1999) Hearing deficit Hearing loss (~1994) Hiatal hernia Hyperlipidemia Hypertension Measles Mumps Shoulder pain (~1999) Stroke (~2006) Vision disorder Physical Therapy Inpatient Evaluation/Re-Eval M1 PT/OT-IP Prior Functional Status Start: 11/28/20 10:34 Freq: NEEDED Status: Active Protocol: Document 11/28/20 10:00 AMB (Rec: 11/28/20 10:54 AMB [email or web address]) Medical Review Prior Functional Status Medical History Reviewed Yes Mobility and Gait Independent in the community without AD, drives, does report double vision from prior stroke, but has glasses for it and only a problem when he is tired Social History Household Members significant other Living Arrangements House Number of Stairs To Enter/Railing? 3 steps to enter with 2 railings Employment Status Retired M2 PT-IP Current Condition Start: 11/28/20 10:34 Freq: NEEDED Status: Active Protocol: Document 11/28/20 10:00 AMB (Rec: 11/28/20 10:54 AMB [email or web address]) Physical Therapy Current Condition Current Condition Evaluation Date 11/28/20 Treatment Diagnosis possible TIA Onset Date 11/27/20 Weight Bearing Status Weight Bearing Status Full Weight Bearing M3 PT-IP Subjective Start: 11/28/20 10:34 Freq: NEEDED Status: Active Protocol: Document 11/28/20 10:00 AMB (Rec: 11/28/20 10:54 AMB [email or web address]) Subjective Physical Therapy Visit Type Type Initial Evaluation Visit Start Time 10:00 Visit Stop Time 10:30 Total Visit Minutes 30 Physical Therapy Visit Comments Patient Comments I feel good M4 PT-IP Mobility and Gait Start: 11/28/20 10:34 Freq: NEEDED Status: Active Protocol: Document 11/28/20 10:00 AMB (Rec: 11/28/20 10:54 AMB [email or web address]) PT-Bed Mobility Assessment Rolling Type of Rolling Roll to Left Level of Assist Independent Supine to Sit Supine to Sit Independent Sit to Supine Sit to Supine Independent PT-Transfer Assessment Sit to and From Stand Sit to and from Stand Standby Assistance Equipment Transfer Assistive Device None Transfers Transfer Destination Bed,Chair Transfer Technique Stand Step Pivot Transfer Ability Level of Assist Standby Assistance Gait Assessment Gait Gait Assistance Required: Standby Assistance Distance (Feet) 200 Assistive Devices Assistive Device Gait Belt Gait Deviations General Gait Pattern Within Normal Limits Comments Gait Comments pt has a history of leg length discrepancy so ambulates with a slightly halting gait due to that but states that is his baseline Stair Climbing Assessment Evaluation Level of Assist On Stairs Contact Guard Assistance Devices Stair Climbing Assistive Devices Left Railing Technique/Endurance Stair Climbing Direction Ascend and Descend Stair Climbing Technique Step Over Step Number of Steps Climbed 3 Query Text: Stair Climbing Set # Repetitions (reps) 2 Comments Stair Climbing Comments Step over step, pt feels good denies lightheadedness, dizziness, SOB or weakness PT-Balance Assessment Comments Other Balance Tests/Deviations/Treatment Pt able to ambulate without : veering with vertical and horizontal head turns M5 PT-IP Objective Assessments Start: 11/28/20 10:34 Freq: NEEDED Status: Active Protocol: Document 11/28/20 10:00 AMB (Rec: 11/28/20 10:54 AMB [email or web address]) Orientation Orientation/Cognition Level of Alertness Alert Safety Awareness Understands Safety Issues Strength Lower Extremity Strength Assessment Within Functional Limits Sensation Assessment Comments Sensation Comments denies paresthesias M6 PT-IP Treatment Start: 11/28/20 10:34 Freq: NEEDED Status: Active Protocol: Document 11/28/20 10:00 AMB (Rec: 11/28/20 10:54 AMB [email or web address]) Physical Therapy Treatment Exercises Exercises Ankle Pumps,Straight Leg Raises M7 PT-IP Assessment and Plan Start: 11/28/20 10:34 Freq: NEEDED Status: Active Protocol: Document 11/28/20 10:00 AMB (Rec: 11/28/20 10:54 AMB [email or web address]) PT Summary Assessment and Plan Potential Rehabilitation Potential Excellent Status of Condition at Evaluation Stable Summary Impairments Activity Tolerance Assessment Summary Tyrone feels that he is pretty much back to baseline. Blood pressure was a little low this morning at rest but denies lightheadedness. Blood pressure was 140/82 after walking and stairs. He was able to ambulate and ascend and descend stairs safely and should be safe to return home with his significant other from a mobility standpoint when medically stable. Goals Bed Mobility Goal Independent Transfer Goal Independent Gait Goal Independent Gait Distance 200 Days to Meet Goals 1 Frequency of Treatment Frequency Of Treatment Discharge Treatment Plan Physical Therapy Treatment Plan Gait Training,Therapeutic Exercise Recommendations To Nursing Amount of Assist Needed Standby Assistance Discharge Recommendations PT Discharge Recommendations Home with Assistance Other Discharge Recommendations Pt to follow up with PCP Transportation Needs at Discharge Private Vehicle
[2020-11-28 11:45] VITALS: TEMP 36.2
[2020-11-28 12:00] VITALS: BP 119/70; PULSE 56; RESP 14; TEMP 36.2
--- NOTE | 2020-11-28 12:07 | ST.IPSCREEN ---
Received order. Saw pt in his room in bed. Introduced self and purpose. His was sitting at bedside. Pt denied difficulty with speech/language swallowing. Cookie picture description, naming of pictures and reading All WNL. Pt swallowed water with no overt s/sx aspiration No ST indicated. Will discharge
--- NOTE | 2020-11-28 12:35 | OT.IP.EVAL ---
Past Medical History (Last Reviewed 11/27/20 @ 15:17 by Dick Enrique DO) Actinic keratosis Asbestosis (~1964) Chicken pox Dementia Diverticular disease Encysted hydrocele Gout (~1999) Hearing deficit Hearing loss (~1994) Hiatal hernia Hyperlipidemia Hypertension Measles Mumps Shoulder pain (~1999) Stroke (~2006) Vision disorder Surgical History (Last Reviewed 11/27/20 @ 15:17 by Dick Enrique DO) Anesthesia Status post colonoscopy Status post rotator cuff repair (~2004) Umbilical hernia (~2011) Occupational Therapy Inpatient Evaluation/Re-Eval M1 PT/OT-IP Prior Functional Status Start: 11/28/20 10:34 Freq: NEEDED Status: Active Protocol: Document 11/28/20 12:41 [facility] (Rec: 11/28/20 13:12 [facility] [id number]) Medical Review Prior Functional Status Medical History Reviewed Yes Communication Independent, pt states has memory issues. Mobility and Gait Independent in the community without AD, drives, does report double vision from prior stroke, but has glasses for it and only a problem when he is tired Activities of Daily Living and IADL's Completely independent. Social History Household Members significant other Living Arrangements House Number of Stairs To Enter/Railing? 3 steps to enter with 2 railings Home Environment High Toilet,Walk in Shower Home Equipment Grab Bars Near Toilet,Grab Bars In Shower Employment Status Retired M2 OT-IP Current Condition Start: 11/28/20 12:40 Freq: Status: Active Protocol: Document 11/28/20 12:41 [facility] (Rec: 11/28/20 13:12 [facility] [id number]) Occupational Therapy Current Condition Current Condition Evaluation Date 11/28/20 Treatment Diagnosis possible TIA Diagnosis Onset Date 11/27/20 M3 OT- IP Subjective and Pain Start: 11/28/20 12:40 Freq: Status: Active Protocol: Document 11/28/20 12:41 [facility] (Rec: 11/28/20 13:12 [facility] [id number]) OT- Subjective Occupational Therapy Visit Type Type Initial Evaluation Visit Start Time 10:20 Visit Stop Time 12:35 Total Visit Minutes 40 Occupational Therapy Visit Comments Patient Comments Pt agreed to do OT eval and seen for split treatment as had to get an ECHO completed. Pt's in the room. Patient/Caregiver Goals TO go home. OT Pain Assessment Pain When Pain Assessed At Rest Pain Present Pain Present Denied Pain M4 OT- IP ADL's Start: 11/28/20 12:40 Freq: Status: Active Protocol: Document 11/28/20 12:41 [facility] (Rec: 11/28/20 13:12 [facility] [id number]) OT YVV-Cata-Rwxvaju General Evaluation Self-Feeding Ability Independent OT ADL-Grooming Comments OT Grooming Comments Not performed. OT ADL-Dressing General Eval Lower Body Dressing Ability Standby Assistance Comments OT Dressing Comments Increased time to do his right sock. OT ADL-Toileting Comments OT Toileting Comments Pt states has been able to use the toilet on his own. OT ADL-Bathing Comments OT Bathing Comments Pt wanting to shower at home. M5 OT- IP IADL's Start: 11/28/20 12:40 Freq: Status: Active Protocol: Document 11/28/20 12:41 [facility] (Rec: 11/28/20 13:12 [facility] [id number]) OT-Instrumental Activities of Daily Living Home Safety Awareness Awareness of Need for Assistance at Home Good Awareness Ability to Problem Solve Emergency Able to Problem Solve Situations Medication Management Medication Management No Deficits Identified Medication Management Comments Pt uses a pill organizer and pt's double checks to see if his took his medications. Money Management Money Management No Deficits Identified Meal Preparation Meal Preparation No Deficits Identified Director Title Director Title Caregiver Provides Assist Driving Driving Concerns Identified Regarding Safety M6 OT- IP Functional Cognition Start: 11/28/20 12:40 Freq: Status: Active Protocol: Document 11/28/20 12:41 [facility] (Rec: 11/28/20 13:12 [facility] [id number]) Cognitive Factors Limiting Selfcare Function Cognitive Ability Level of Alertness Alert Patient Orientation Name,Age,Birthday,Month,Date, Year,Day of Week,Place, Situation Attention Span Ability Capable of Focused Attention, Capable of Sustained Attention Ability to Follow Commands Able to Follow Multi-Step Commands Memory Description Short Term Impaired Safety Awareness No Deficits Noted Problem Solving Ability No deficits Noted Executive Function Ability Unable to Remember Details Cognitive Tests SLUMS Pt scored 22/30 which implies mild neurocognitive disorder, pt able to recall 1/5 objects after time passed and able to answer 2/4 questions after a paragraph read. Cognitive Comments Cognitive Assessment Comments Pt states has had history of memory issues. Able to pt and educated pt on memory strategies. Pt scored 99 seconds on [place] Making Part B which implies mild/moderate impairments for visual attention, speed of processing , mental flexibility , executive functioning, and task switching. Pt score for his age is at the 70% percentile. OT- Vision and Hearing OT- Hearing Assessment OT- Hearing Assessment Hearing Impaired,Use of Hearing Aids OT- Vision Assessment Visual Acuity Glasses All The Time Occular Pursuits WFL Visual [place] WFL M7 OT- IP Mobility and Balance Start: 11/28/20 12:40 Freq: Status: Active Protocol: Document 11/28/20 12:41 [facility] (Rec: 11/28/20 13:12 [facility] [id number]) OT- Bed Mobility Assessment Rolling Type of Rolling Roll to Left Level of Assistance Independent Supine to Sit Supine to Sit Assist Independent Sit to Supine Sit to Supine Assist Independent OT-Transfer Assessment Sit to and From Stand Sit to and from Stand Independent Transfers Transfer Ability Independent Technique Transfer Destination Bed Comments Mobility Comments Pt independent to more in his room. OT- Balance Assessment Sitting Balance and Reactions Static Sitting Balance Ability Normal Dynamic Sitting Balance Ability Good Standing Balance and Reactions Static Standing Balance Ability Good M8 OT- IP Objective Assessments Start: 11/28/20 12:40 Freq: Status: Active Protocol: Document 11/28/20 12:41 [facility] (Rec: 11/28/20 13:12 [facility] [id number]) OT Gross Range of Motion Upper Extremity Range of Motion Assessment Within Functional Limits OT Strength Upper Extremity Strength Assessment Within Functional Limits OT- Coordination Assessment Upper Extremity Finger to Nose Test Within Functional Limits Comments Coordination Comments 9 Hole Peg test right hand 24 seconds which implies 50% percentile and left hand 26 seconds which is at around 75 percentile for his age. OT-Muscle Tone Assessment Muscle Tone WNL Yes M9 OT- IP Assessment and Plan Start: 11/28/20 12:40 Freq: Status: Active Protocol: Document 11/28/20 12:41 [facility] (Rec: 11/28/20 13:12 [facility] [id number]) OT Summary Assessment and Plan Potential Rehabilitation Potential Excellent Analytic Complexity at Evaluation Low Summary OT Impairments Functional Cognition,Dressing, Bathing Progress Towards Goals Progressing Toward Goals Assessment Summary Pt Low complexity and here due to possible TIA and pt feels that he is at baseline for needs. Pt aware that he has memory issues and went over memory strategies for pt . Pt scored 99 seconds on [place] Making Part B which implies mild/moderate impairments for visual attention, speed of processing, mental flexibility , executive functioning, and task switching. Pt score for his age is at the 70% percentile. Pt to go home with when medically stable. Goals Shower Transfer Goal Independent Days to Meet Goals 1 Frequency of Treatment Frequency Of Treatment Once a Day Treatment Plan OT Treatment Plan ADL Training,Functional Cognition Training,Functional Mobility Other Treatment Recommendations and Next Shower if still here. Treatment Focus Discharge Recommendations OT Discharge Recommendations Home with Assistance Transportation Needs at Discharge Private Vehicle
--- NOTE | 2020-11-28 14:14 | P.DS_ITS ---
History of Present Illness History of Present Illness Date Patient Seen: 11/28/20 Time Patient Seen: 14:14 Date of Onset of Symptoms: 11/27/20 Chief complaint: Poss TIA Narrative: Pt presented to ED with CC of jhon feeling 11/27 around 1pm while at [facility] with sister he became acutely discombobulated and disoriented lost all his words for locations and objects unable to make sense to his sister although she made sense to him. Normal motor function did not fall or feel dizzy This lasted about ten - fifteen minutes before evidently resolving completely. In ED he had a benign exam normal NIHSS and he felt back to normal. Notes that he has not been taking his ASA 81 for the last week and was found to be moderately hypertensive. Similar presentation about 6 months ago with aphasia and confusion which resolved, at that time he had also bee off ASA 81 for a week. Now feels back to normal has been up and ambulating per he seems his usual self now as well. Apart from this event he has felt basically fine no concerns except for some mildly worsened heartburn this last week. Took two ASA 81 prior to presentation, got another two in ED. Discharge Providers Provider Date of admission: 11/27/20 15:16 Discharge Date: 11/28/20 Primary care physician: Gabriel Lopez MD Consults: 11/27/20 16:58 Consult to Discharge Planning Routine Comment: Consult to Occupational Therapy Evaluate & Treat Comment: Physician Instructions: Evaluate and treat Consult to Physical Therapy Evaluate & Treat Comment: Physician Instructions: Evaluate and Treat Consult to Speech Therapy Evaluate & Treat Comment: Physician Instructions: Evaluate and treat Discharge provider: Gabriel Lopez MD Summary Hospital Course Discharge Diagnosis: TIA/CVA Hospital Course: Mr. Mac remained asymptomatic during his admission and his vital signs and labs remained essentially normal. He was ambulating communicating eliminating and eating at his baseline by [facility]. His head MRI and echocardiogram were wnl no concern for ongoing process. He will f/u with PCP next week. Status at Discharge Cognitive/behavioral status at discharge: at baseline, oriented Functional status at discharge: independent ambulation Overall status at discharge: patient is back to baseline Exam Vital Signs (past 8 hours): - 11/28/20 07:30 11/28/20 11:45 11/28/20 12:00 Temperature 97.2 F L 97.1 F L 97.1 F L Pulse Rate 59 L 56 L Respiratory Rate 16 14 Blood Pressure 109/66 119/70 Pulse Oximetry 95 Oxygen Delivery Method Room Air Oxygen Flow Rate 0 Narrative Exam Narrative: cheerful sharon lying in bed with Const General: cooperative, healthy appearing and comfortable HENMT Head: normal to inspection Resp Other: EWOB CTAB Cardio Other: RRR S1/S2 GI Other: NBS SNTND Skin Other: RLE with emerging glycolic stitch no erythema Neuro General: patient alert, patient awake, patient oriented x3, moves all extremities, CN's II-XI intact bilaterally and deep tendon reflexes 2+ bilaterally Cranial Nerves: CN's II-XI intact bilaterally, PERRL, EOM intact bilaterally, tongue midline, able to rotate head bilaterally and able to elevate shoulders bilaterally Cognition: normal cognition Speech: speech normal Psych Appearance: grossly normal and well kempt Mental Status: mental status grossly normal Speech and Movement: speech and movement normal and speech clear Mood: congruent mood Affect: normal affect Attitude: cooperative Thought Process: normal Thought Content: normal Judgment: judgment good Objective Labs Result Diagrams: 11/28/20 05:49 11/28/20 05:49 Labs: Laboratory Results - last 24 hr 11/27/20 11/27/20 11/27/20 14:20 14:20 14:20 WBC 7.0 RBC 5.16 Hgb 15.7 Hct 47.3 MCV 91.8 MCH 30.5 MCHC 33.2 RDW 13.1 Plt Count 224 Neut % (Auto) 57.0 Lymph % (Auto) 30.4 [place] % (Auto) 8.0 Eos % (Auto) 4.3 H Baso % (Auto) 0.3 Neut # (Auto) 4000 Lymph # (Auto) 2100 [place] # (Auto) 600 Eos # (Auto) 300 Baso # (Auto) 0 Sodium 135 L Potassium 4.3 Chloride 98 Carbon Dioxide 33 H BUN 16 Creatinine 0.72 Estimated GFR > 60.0 BUN/Creatinine Ratio 22.2 H Glucose 92 Calcium 9.6 Total Creatine Kinase 84 CK-MB (CK-2) TNP CK-MB (CK-2) Rel Index TNP Troponin I < 0.012 U Opiates 300ng/mL cut Ur Oxycodone Screen Urine Methadone Screen Ur Barbiturates Screen U Tricyclic Antidepress Ur Phencyclidine Scrn Ur Amphetamines Screen U Methamphetamines Scrn Ur MDMA Scrn (Ecstasy) U Benzodiazepines Scrn Urine Cocaine Screen U Marijuana (THC) Screen SARS-CoV-2 (PCR) 11/27/20 11/27/20 11/28/20 15:15 15:20 05:49 WBC 5.9 RBC 4.92 Hgb 14.9 Hct 45.0 MCV 91.6 MCH 30.4 MCHC 33.2 RDW 13.1 Plt Count 213 Neut % (Auto) 51.2 Lymph % (Auto) 33.0 [place] % (Auto) 9.9 Eos % (Auto) 5.4 H Baso % (Auto) 0.5 Neut # (Auto) 3000 Lymph # (Auto) 2000 [place] # (Auto) 600 Eos # (Auto) 300 Baso # (Auto) 0 Sodium Potassium Chloride Carbon Dioxide BUN Creatinine Estimated GFR BUN/Creatinine Ratio Glucose Calcium Total Creatine Kinase CK-MB (CK-2) CK-MB (CK-2) Rel Index Troponin I U Opiates 300ng/mL cut Negative Ur Oxycodone Screen Negative Urine Methadone Screen Negative Ur Barbiturates Screen Negative U Tricyclic Antidepress Negative Ur Phencyclidine Scrn Negative Ur Amphetamines Screen Negative U Methamphetamines Scrn Negative Ur MDMA Scrn (Ecstasy) Negative U Benzodiazepines Scrn Negative Urine Cocaine Screen Negative U Marijuana (THC) Screen Negative SARS-CoV-2 (PCR) Negative 11/28/20 05:49 WBC RBC Hgb Hct MCV MCH MCHC RDW Plt Count Neut % (Auto) Lymph % (Auto) [place] % (Auto) Eos % (Auto) Baso % (Auto) Neut # (Auto) Lymph # (Auto) [place] # (Auto) Eos # (Auto) Baso # (Auto) Sodium 137 Potassium 4.1 Chloride 103 Carbon Dioxide 30 BUN 13 Creatinine 0.71 Estimated GFR > 60.0 BUN/Creatinine Ratio 18.3 Glucose 96 Calcium 9.4 Total Creatine Kinase CK-MB (CK-2) CK-MB (CK-2) Rel Index Troponin I U Opiates 300ng/mL cut Ur Oxycodone Screen Urine Methadone Screen Ur Barbiturates Screen U Tricyclic Antidepress Ur Phencyclidine Scrn Ur Amphetamines Screen U Methamphetamines Scrn Ur MDMA Scrn (Ecstasy) U Benzodiazepines Scrn Urine Cocaine Screen U Marijuana (THC) Screen SARS-CoV-2 (PCR) [facility] Medical History Actinic keratosis Asbestosis (~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) Chicken pox Dementia Diverticular disease Encysted hydrocele Gout (~1999) Hearing deficit Hearing loss (~1994) Hiatal hernia Hyperlipidemia Hypertension Measles Mumps Shoulder pain (~1999) Stroke (~2006) Vision disorder Surgical History Anesthesia Status post colonoscopy Status post rotator cuff repair (~2004) Umbilical hernia (~2011) Family History Brother Age: 80 High cholesterol Father Mental health problem Dementia Mother Hypertension High cholesterol Social History household members: significant other Smoking Status: Former smoker Discharge Assessment & Plan Assessment and Plan Assessment: #TIA/CVA NIHSS zero throughout admission at baseline CT and MRI head, echo all wnl, f/u with PCP as outpt continue atorvastatin at home with ASA 81 #Hypertension resume home medications with HCTZ, amlodipine #Hyperlipidemia continue home atorvastatin #GERD continue PPI protonix while inpatient #Gout stable continue allopurinol IVF: none DVT ppx: lovenox sc Diet: Heart healthy Code status: Full Discharge Plan Discharge Plan Patient Disposition: Home Provider Discharge Comment: resume home meds f/u with me next week in clinic Discharge orders & Medications Prescriptions: Continued epinephrine 0.3 MG/0.3 ML auto-injector 0.3 mg IM X1 Qty: 1 RF: 5 amlodipine [Norvasc] 5 mg tablet 5 mg PO QDAY Qty: 90 RF: 3 hydrochlorothiazide 25 mg tablet 25 mg PO DAILY Qty: 90 RF: 3 omeprazole 20 mg capsule,delayed release(DR/EC) 20 mg PO QDAY Qty: 90 RF: 3 allopurinol 300 mg tablet 150 mg PO DAILY RF: 0 atorvastatin 40 mg tablet 40 mg PO BEDTIME Qty: 30 RF: 0 aspirin 81 mg tablet,delayed release (DR/EC) 81 mg PO DAILY Qty: 30 RF: 0 Follow up/Referrals: Gabriel Lopez MD [Primary Care Provider] - Visit Report/Discharge Packet Instructions: DI for Transient Ischemic Attack Discharge Data Primary Care Provider: Gabriel Lopez Attending Provider: Gabriel Lopez
--- NOTE | 2020-11-28 14:58 | PC.NURSE ---
Dischagre: Feels ready to d/c to home. Seen by MD. Pt is reminded he must take his aspirin daily. NIH was 0. MD gave d/c instructions. Reviewed d/c packet. Questions answered. Spouse here at time of d/c. Pt d/c home via auto with .
== END 2020-11-28 14:45 | disposition home or self-care (01) ==
LOC: ED 15:16 → AC 15:17
PROVIDERS: Admitting Provider Family Medicine; Emergency Provider Emergency Medicine; PCP Family Medicine; Referring Provider Emergency Medicine; Visit Provider Family Medicine
DX: R41.0 Disorientation, unspecified (principal); R51.9 Headache, unspecified; R29.700 NIHSS score 0; Z86.73 Personal history of transient ischemic attack (TIA), and cerebral infarction without residual deficits; I10 Essential (primary) hypertension; E78.5 Hyperlipidemia, unspecified; Z79.82 Long term (current) use of aspirin; K21.9 Gastro-esophageal reflux disease without esophagitis; M10.9 Gout, unspecified; Z20.822 Contact with and (suspected) exposure to COVID-19
CPT/HCPCS: 36415; 70450; 70548; 70553; 80048; 80305; 81003; 82550; 82962; 84484; 85025; 87635; 93005; 93306; 96360; 96372; 97161; 97165; 97530; 99285; C9803; G0378; A9579; J1650

== ENCOUNTER → 2021-09-22 08:39 | Outpatient (CLI) | payer OTHER, SELFPAY ==
[2020-11-27 17:21] VITALS: BMI 31.5
--- NOTE | 2021-09-22 | DI.US.S_ITS ---
ULTRASOUND OF RIGHT BREAST AND AXILLA: 09/22/2021 CLINICAL: Palpable right axilla lump. Comparison is made to exams dated: 07/21/2020 ultrasound, 07/21/2020 mammogram, and 01/30/2019 [facility]. CT chest 02/10/2016. Color flow and real-time ultrasound of the right breast axilla were performed. [place]avares scale images of the real-time examination were reviewed. Enlarged right axillary lymph node. Short axis diameter measuring 1.1 cm -1.5 cm. (previously measured 1.2 cm short axis diameter in 2019). No cortical thickening. Preserved fatty hilum. No hyperemia. A second node is identified with a short axis diameter of 0.7 cm. IMPRESSION: BENIGN There is no sonographic evidence of malignancy. Enlarged right axillary node is similar to 2019. Besides the size of this lymph node, there are no suspicious imaging features. No additional enlarged lymph nodes. There is a similar node seen on CT chest from 2016. Suspicion is low. This could be a reactive lymph node. Patient denies additional areas of suspected adenopathy. If history of malignancy, ultrasound guided biopsy could be considered. Consider CT chest with IV contrast for further evaluation in this male patient. Exam findings were conveyed to the patient. Patient is advised to monitor for significant change. Clinical follow-up is recommended. This exam was interpreted at Station ID: [id number]. Electronically Signed By: Solis Coombs M.D. slc/:09/22/2021 10:00:23 letter sent: Normal Exam Ultrasound BI-RADS: 2 Benign
== END ==
PROVIDERS: PCP Family Medicine; Referring Provider Family Medicine; Visit Provider Family Medicine
DX: N63.31 Unspecified lump in axillary tail of the right breast (principal); R59.0 Localized enlarged lymph nodes
CPT/HCPCS: 76882

== ENCOUNTER → 2021-11-05 15:47 | Outpatient (CLI) | payer OTHER, SELFPAY ==
[2020-11-27 17:21] VITALS: BMI 31.5
[2021-11-05 16:41] LABS: BUN Creatinine Ratio 22.9 (6-22); Blood Urea Nitrogen 19 mg/dL (9-20); Calcium 8.9 mg/dL (8.4-10.2); Carbon Dioxide 29 mmol/L (22-32); Chloride 102 mmol/L (98-107); Estimated Glomerular Filt Rate > 60 mL/min (>60); Glucose 114 mg/dL (80-110); HEMOLYSIS < 15 (0-50); Potassium 3.5 mmol/L (3.4-5.1); Sodium 137 mmol/L (137-145)
== END ==
PROVIDERS: PCP Family Medicine; Referring Provider Surgery; Visit Provider Surgery
DX: R22.31 Localized swelling, mass and lump, right upper limb (principal); Z68.31 Body mass index [BMI] 31.0-31.9, adult
CPT/HCPCS: 36415; 80048; 99214

== ENCOUNTER → 2021-11-06 08:46 | Outpatient (CLI) | payer OTHER, SELFPAY ==
[2020-11-27 17:21] VITALS: BMI 31.5
--- NOTE | 2021-11-06 08:47 | DI.CT.S_ITS ---
PROCEDURE: CT CHEST W CON INDICATIONS: RIGHT axillary mass TECHNIQUE: After the administration of intravenous contrast, 5 mm thick sections acquired from the pulmonary apices to the posterior costophrenic angles. 1 mm axial lung, 5 mm thick coronal and sagittal reformats and 7 mm axial MIP were acquired. For radiation dose reduction, the following was used: automated exposure control, adjustment of mA and/or kV according to patient size. COMPARISON: [facility], , AXILLARY ONLY RT, 09/22/2021, 9:05. FINDINGS: Image quality: Excellent. Lungs and pleura: No acute air space opacities. No pleural effusions or pneumothorax. Central and peripheral airways are patent and normal in caliber. Bilateral calcified pleural plaques. Mediastinum: No pericardial effusion. No mediastinal or hilar adenopathy by size criteria. Thoracic aorta and central pulmonary arteries are normal in size. Esophagus is normal in caliber. Bones and chest wall: A radiopaque marker is present at the right axilla corresponding to the patient's indicated area of concern. No underlying soft tissue mass identified. No suspicious bony lesions. No vertebral body compression fractures. No axillary or supraclavicular adenopathy by size criteria. Abdomen: Visualized upper abdominal solid organs appear normal. Upper abdominal bowel loops are normal in caliber. IMPRESSION: 1. No right axillary mass identified by CT. 2. No thoracic adenopathy visualized. 3. Bilateral calcified pleural plaques, likely related to prior asbestos exposure but other postinflammatory change such as sequela of prior hemothorax or empyema is also possible. Dictated by: Delta Martinez M.D. on 11/06/2021 at 9:39 Approved by: Delta Martinez M.D. on 11/06/2021 at 9:48
== END ==
PROVIDERS: PCP Family Medicine; Referring Provider Surgery; Visit Provider Surgery
DX: R22.31 Localized swelling, mass and lump, right upper limb (principal)
CPT/HCPCS: 71260; Q9967

== ENCOUNTER → 2021-11-09 13:25 | Outpatient (CLI) | payer OTHER, SELFPAY ==
[2020-11-27 17:21] VITALS: BMI 31.5
--- NOTE | 2021-11-26 14:36 | P.HOLT.S_ITS ---
[facility] Report Referral & Results Date Patient Seen: 11/09/21 Requesting provider: Cali Gupta Indication: TIA Duration of monitoring (days): 14 Diary information: There were no patient events to review Data: Minimum heart rate identified was 50 beats per minute at 03:49 on 11/10/2021 Maximum sinus heart rate was 139 beats per minute at 22:26 on 11/11/2021 Maximum overall heart rate was 179 beats per minute at 12:57 on 11/22/2021 during a run of SVT Less than 1% of identified beats were ventricular or supraventricular ectopic in origin, which would classify them as rare. There were 5 runs of SVT the fastest being a 14 beat run at the above rate, this was also the longest run There were no pauses of 3 seconds or longer or episodes of atrial fibrillation identified on this study Impression: 14 day quality assurance monitor final demonstrating very rare very brief runs of SVT Otherwise essentially unremarkable quality assurance monitor final Clinical correlation suggested
== END ==
PROVIDERS: PCP Family Medicine; Referring Provider Family Medicine; Visit Provider Family Medicine
DX: Z86.73 Personal history of transient ischemic attack (TIA), and cerebral infarction without residual deficits (principal)
CPT/HCPCS: 93246; 93248

== ENCOUNTER → 2021-11-12 09:34 | Outpatient (CLI) | payer OTHER, SELFPAY ==
[2020-11-27 17:21] VITALS: BMI 31.5
== END ==
PROVIDERS: Family Provider Family Medicine; PCP Family Medicine; Referring Provider Family Medicine; Visit Provider Family Medicine
DX: R20.2 Paresthesia of skin (principal)
CPT/HCPCS: 95886; 95910

== ENCOUNTER → 2021-11-18 09:28 | Outpatient (CLI) | payer OTHER, SELFPAY ==
[2020-11-27 17:21] VITALS: BMI 31.5
[2021-11-18 12:44] LABS: COVID19 -Nasal RAPID Negative (Negative)
== END ==
PROVIDERS: Family Provider Family Medicine; PCP Family Medicine; Visit Provider Surgery
DX: Z01.812 Encounter for preprocedural laboratory examination (principal); Z20.822 Contact with and (suspected) exposure to COVID-19
CPT/HCPCS: 87635; C9803

== ENCOUNTER 2021-11-19 08:23 | Day surgery (SDC) | payer OTHER, SELFPAY ==
[2020-11-27 17:21] VITALS: BMI 31.5
[2021-11-12 14:47] VITALS: BMI 31.3
[2021-11-19 08:39] VITALS: BP 140/84; PULSE 57; RESP 16; TEMP 36.5; O2SAT 98; BMI 31.9
[2021-11-19] MEDS: LACTATED RINGERS 1,000 ML 100 ML IV (09:23)
--- NOTE | 2021-11-19 10:29 | PM.PREOP ---
Pre-operative Note Interval Note History & Physical reviewed/Exam performed by Physician: Yes Changes to H&P: No
--- NOTE | 2021-11-19 10:41 | P.OP_ITS ---
Operative Date/Time/Diagnoses Date of procedure: 11/19/21 Time of procedure: 10:41 Pre-op diagnosis: Right axillary mass Post-op diagnosis: same Procedure & Clinicians Procedure: Excisional biopsy of right axillary mass Same procedure as scheduled: Yes Indications: 86-year-old man enlarging painful right axillary mass which has not been visu alized on ultrasound, CT, or MRI. Surgeon: Joaquin Rosales Anesthesia Type: General Operative Notes Findings: Benign appearing fatty growth within the axilla consistent with lipoma Estimated Blood Loss (mL): 40 Procedure in detail: Patient was brought to the operating room placed supine on the table. Bilateral lower extremity compression devices were applied. General anesthesia was induced he was intubated with an LMA. He received Ancef prior to skin incision. He was prepped and draped in sterile fashion. Time-out performed. Incision was made inferior to the hair-bearing area the right axilla. The subcutaneous tissue was divided. Within the axilla the only notable abnormality was a fatty growth which was slightly fibrous in texture. This was excised and passed off field labeled the specimen. Hemostasis was achieved. No clinical lymphadenopathy. Wound was irrigated. Subcutaneous tissue was reapproximated with 3-0 Vicryl skin closed with a running Monocryl followed by the application of Dermabond. He tolerated the procedure well extubated and transferred to recovery in stable condition. Complications: none Post-operative Condition: stable Disposition: same day surgery
--- NOTE | 2021-11-19 10:49 | SUR.OPER ---
Supine on padded OR bed, head on pillow, arms secured on padded arm boards at <90 degrees abduction, legs uncrossed, safety belt at thigh, tape over blanket over lower legs.
[2021-11-19] MEDS: CEFAZOLIN 2 GM/100 ML PREMIX 100 ML IV (10:57)
[2021-11-19] MEDS: BUPIVACAINE 0.25% (PF) VIAL 30 ML INJ (11:20)
[2021-11-19 12:05] VITALS: BP 145/86; PULSE 60; RESP 16; TEMP 36.7; O2SAT 98
[2021-11-19 12:10] VITALS: BP 111/73; PULSE 68; RESP 16; TEMP 36.9; O2SAT 98
[2021-11-19 12:25] VITALS: BP 112/70; PULSE 62; RESP 16; TEMP 36.8; O2SAT 100
[2021-11-19 12:30] VITALS: BP 128/74; PULSE 98; RESP 16; TEMP 36.8; O2SAT 100
== END 2021-11-19 12:40 | disposition home or self-care (01) ==
PROVIDERS: Family Provider Family Medicine; PCP Family Medicine; Referring Provider Surgery; Visit Provider Surgery
PROC: (CPT 21552; principal; 2021-11-19 09:45)
DX: D17.1 Benign lipomatous neoplasm of skin and subcutaneous tissue of trunk (principal)
CPT/HCPCS: 21552; 82962; J0690; J1100; J2405; J2704; J3010

== ENCOUNTER → 2021-12-01 11:08 | Outpatient (CLI) | payer OTHER, SELFPAY ==
[2020-11-27 17:21] VITALS: BMI 31.5
[2021-11-20 08:56] VITALS: BMI 31.5
--- NOTE | 2021-12-01 | DI.US.S_ITS ---
PROCEDURE: US CAROTID DOPPLER BI INDICATIONS: Personal history of transient ischemic attack (TIA), and cer TECHNIQUE: Color and pulse Doppler interrogation was performed of both carotid systems, with image documentation and velocity measurements. COMPARISON: [facility], US, CAROTID ARTERY DOPPLER BILAT, 06/06/2008, 9:03. [facility], MR, MR STROKE, 11/27/2020, 19:02. FINDINGS: Stenosis calculations are based on SRU (Society of Radiologists in Ultrasound) criteria. The flow velocities and the arterial waveforms are normal within both carotid arterial systems. Atherosclerotic plaque is seen on both sides. The estimated degree of internal carotid artery stenosis is less than 50%. Antegrade flow is confirmed within both vertebral arteries. IMPRESSION: No hemodynamically significant stenosis is seen. No significant change from the prior. Atherosclerotic plaque is noted bilaterally. Dictated by: Faizan Walter M.D. on 12/01/2021 at 11:23 Approved by: Faizan Walter M.D. on 12/01/2021 at 11:24
== END ==
PROVIDERS: Family Provider Family Medicine; PCP Family Medicine; Referring Provider Family Medicine; Visit Provider Family Medicine
DX: Z86.73 Personal history of transient ischemic attack (TIA), and cerebral infarction without residual deficits (principal); I65.23 Occlusion and stenosis of bilateral carotid arteries
CPT/HCPCS: 93880

== ENCOUNTER 2022-08-09 09:53 | Emergency (ER) | payer OTHER, SELFPAY ==
[2021-11-20 08:56] VITALS: BMI 31.5
[2022-08-09] VITALS (15 sets, daily range): BP systolic 136–159; BP diastolic 65–101; PULSE 51–70; RESP 14–21; TEMP 36.5; O2SAT 92–99; BMI 31.6
--- NOTE | 2022-08-09 10:06 | DI.CT.S_ITS ---
PROCEDURE: CT STROKE INDICATIONS: Positive BE-FAST, Stroke symptoms TECHNIQUE: Noncontrast 4.5 mm thick angled axial sections acquired from the foramen magnum to the vertex, with coronal reformats. For radiation dose reduction, the following was used: automated exposure control, adjustment of mA and/or kV according to patient size. COMPARISON: [facility], CT, CT STROKE, 06/18/2020, 16:21. FINDINGS: Image quality: Excellent. CSF spaces: Basal cisterns are patent. No extra-axial fluid collections. Ventricles are normal in size and shape. Brain: No midline shift. No intracranial masses or hemorrhage. No area of hypodensity in a large vascular distribution to suggest acute infarction. Hypodense focus at the right basal ganglia is unchanged. Periventricular hypodensity consistent with chronic microvascular ischemic change. Age-related parenchymal loss. Skull and face: Calvarium and visualized facial bones are intact, without suspicious lesions. Sinuses: Visualized sinuses and mastoids are clear. IMPRESSION: No acute intracranial abnormality. 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 Comment: Findings were discussed with Ailyn Barnes at 10:32 a.m. This study fulfills neurological imaging criteria for inclusion or exclusion of acute stroke therapies based on available published neurological imaging guidelines. Dictated by: Solis Coombs M.D. on 08/09/2022 at 10:27 Approved by: Solis Coombs M.D. on 08/09/2022 at 10:33
--- NOTE | 2022-08-09 10:06 | DI.RAD.S_ITS ---
PROCEDURE: XR CHEST 1V INDICATIONS: Possible stroke TECHNIQUE: One view of the chest was acquired. COMPARISON: [facility], CR, XR CHEST 2V, 01/29/2020, 10:36. FINDINGS: Surgical changes and devices: None. Lungs and pleura: Lungs are clear. No pleural effusions or pneumothorax. Mediastinum: Mediastinal contours appear normal. Heart size is normal. Bones and chest wall: No suspicious bony lesions. Overlying soft tissues appear unremarkable. IMPRESSION: No evidence acute pulmonary process. Dictated by: Kyree Romo M.D. on 08/09/2022 at 10:42 Approved by: Kyree Romo M.D. on 08/09/2022 at 10:43
--- NOTE | 2022-08-09 10:06 | DI.CT.S_ITS ---
PROCEDURE: CT ANGIO HEAD AND NECK INDICATIONS: head pain and blurred vision. Hx of TIA TECHNIQUE: After the administration of intravenous contrast, 1 mm thick sections acquired from the aortic arch through the [place] of [place]. Post-contrast 4.5 mm thick sections then re-acquired from the foramen magnum to the vertex. 3-dimensional kxltevk-wqepqdzgd-xrecgqqtnb (MIP) and/or volume rendering reformats were acquired of the central intracranial vasculature and neck separately. For radiation dose reduction, the following was used: automated exposure control, adjustment of mA and/or kV according to patient size. COMPARISON: [facility], CT, CT STROKE, 08/09/2022, 10:13. [facility], MR, MR STROKE, 11/27/2020, 19:02. FINDINGS: Image quality: Excellent. BRAIN: CSF spaces: Ventricles are normal in size and shape. Basal cisterns are patent. No extra-axial fluid collections. Brain: No midline shift. No intracranial bleeds or masses. Tavares-white matter interface appears intact. Age-related volume loss and mild small vessel ischemic change. 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 Old right basal ganglia lacunar infarction. Skull and face: Calvarium and facial bones appear intact, without suspicious lesions. Orbits appear normal. Sinuses: Sinuses and mastoids are clear. HEAD CT ANGIOGRAPHY: Anterior circulation: Intracranial internal carotid arteries are normal in size and flow. The flow within the paired anterior cerebral arteries is normal and symmetric. The flow within the middle cerebral arteries is normal and symmetric. The anterior communicating artery is seen. No aneurysms are seen. Posterior circulation: Visualized portions of the vertebral arteries demonstrate normal caliber, and join to form a normal appearing basilar artery. Flow within the posterior cerebral arteries is normal and symmetric. No aneurysms are seen. NECK CT ANGIOGRAPHY: Carotid system: The great vessels demonstrate a conventional anatomy as they arise from the aortic arch. The origins of the common carotid arteries appear patent. The common carotid arteries demonstrate normal caliber and courses. The bifurcation regions are both widely patent. The internal carotid arteries demonstrate normal calibers and courses. Posterior circulation: The origins of the vertebral arteries both appear widely patent. The more superior extracranial portions of both vertebral arteries also demonstrate normal courses and calibers. They join to form a normal appearing basilar artery. Soft tissues: Visualized neck soft tissues demonstrate no suspicious abnormalities. Bones: No suspicious bony lesions. Visualized cervical spine appears normally aligned. IMPRESSION: 1. Old small infarcts. 2. No acute intracranial process. 3. Unremarkable CTA head. No stenosis, aneurysm, occlusion, or focal filling defect. 4. Patent carotids. Comment: Findings were discussed with Dr. Barnes on 08/09/2022 at 1040 hours Any quantitative measurements of stenosis were performed using NASCET criteria. Dictated by: Kyree Romo M.D. on 08/09/2022 at 10:36 Approved by: Kyree Romo M.D. on 08/09/2022 at 10:42
[2022-08-09 10:17] LABS: Add Manual Diff / Slide Review NO; Basophils Absolute Auto 0 /uL (0-100); Basophils Percent Auto 0.5 % (0-2); Eosinophils Absolute Auto 200 /uL (0-450); Eosinophils Percent Auto 3.1 % (2-4); Hematocrit 40.4 % (41-53); Hemoglobin 13.4 g/dL (13.5-17.5); Lymphocytes Absolute Auto 2600 /uL (1100-4500); Lymphocytes Percent Auto 32.3 % (25-40); Mean Corpuscular HGB Conc 33.2 % (30-36); Mean Corpuscular Hemoglobin 29.4 PG (26-34); Mean Corpuscular Volume 88.6 fL (80-100); Monocytes Absolute Auto 800 /uL (0-900); Neutrophils Absolute Auto 4300 /uL (1500-7000); Neutrophils Percent Auto 54.1 % (50-75); Platelet Count 316 X10^3/uL (150-400); Red Blood Cell Count 4.55 X10^6/uL (4.5-5.9); Red Cell Distribution Width 13.2 % (11.6-14.8)
[2022-08-09 10:25] LABS: Prothrombin Time 11.2 SECONDS (10.1-12.7)
[2022-08-09 10:27] LABS: PTT Partial Thromboplastin Tim 30 SECONDS (26-36)
[2022-08-09 10:41] LABS: Alanine Aminotransferase 24 IU/L (<50); Albumin 3.9 g/dL (3.5-5.0); Albumin Globulin Ratio 1.3 (1.0-2.8); Alkaline Phosphatase 60 U/L (38-126); Aspartate Aminotransferase 27 IU/L (17-59); BUN Creatinine Ratio 23.2 (6-22); Bilirubin Total 0.7 mg/dL (0.2-1.3); Blood Urea Nitrogen 19 mg/dL (9-20); Calcium 9.2 mg/dL (8.4-10.2); Carbon Dioxide 31 mmol/L (22-32); Chloride 100 mmol/L (98-107); Creatine Kinase 70 U/L (55-170); Estimated Glomerular Filt Rate > 60 mL/min (>60); Globulin 3.1 g/dL (1.7-4.1); Glucose 85 mg/dL (80-110); HEMOLYSIS 57 (0-50); Potassium 4.1 mmol/L (3.4-5.1); Sodium 135 mmol/L (137-145)
[2022-08-09 10:52] LABS: Troponin I < 0.012 ng/mL (0.01-0.034)
--- NOTE | 2022-08-09 10:59 | ED.NEUROSD ---
HPI - Neuro Symptoms/Deficit General Chief Complaint: Neuro Symptoms/Deficit Stated Complaint: thinks he's having a TIA Time Seen by Provider: 08/09/22 10:05 Mode of arrival: Ambulatory History of Present Illness HPI Narrative: Patient 86-year-old male history of hypertension, TIA presenting today with left eye cloudiness. He says this has happened to him 3 or 4 times in last 45 days. He has been seen and evaluated by his credentialing assistant in fact he saw her last week. Was instructed if this happened again to come to the emergency department to rule out a TIA. He says this morning he was reading last known well at 9 him when his vision became cloudy. He denies any loss of vision he loves flashing lights pain or headache. He is no numbness tingling weakness facial droop or other focal deficits. He denies any chest pain shortness of breath nausea or vomiting. On Anticoagulants: No (324mg aspirin) Related Data Home Medications Medication Instructions Recorded Confirmed allopurinol 300 mg tablet 150 mg PO DAILY 06/18/20 12/18/21 aspirin 325 mg tablet 325 mg PO DAILY 11/12/21 12/18/21 atorvastatin 40 mg tablet 20 mg PO BEDTIME 11/12/21 12/18/21 epinephrine 0.3 mg/0.3 mL 0.3 mg IM X1 PRN Allergic Reaction 11/12/21 12/18/21 injection, auto-injector Previous Rx's Medication Instructions Recorded amlodipine 5 mg tablet (Norvasc) 5 mg PO QDAY #90 tabs 12/21/19 hydrochlorothiazide 25 mg tablet 25 mg PO DAILY #90 tabs 12/21/19 omeprazole 20 mg capsule,delayed See Rx Instructions .Route 05/26/21 release .COMPLEX #90 caps acetaminophen 325 mg capsule 650 mg PO QID PRN pain #60 caps 11/19/21 (Tylenol) oxycodone 5 mg tablet 5 mg PO Q6H PRN pain #20 tabs 11/19/21 Allergies Allergy/AdvReac Type Severity Reaction Status Date / Time bee venom protein (honey bee) Allergy Swelling Verified 12/18/21 09:41 Review of Systems Review of Systems ROS Unobtainable: All systems reviewed & are unremarkable except as noted in HPI and below Hematologic/Lymphatic On Anticoagulants: No (324mg aspirin) 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) Chicken pox Dementia Diverticular disease Encysted hydrocele Gout (~1999) Hearing deficit Hearing loss (~1994) Hiatal hernia Hyperlipidemia Hypertension Measles Mumps Psoriasis Shoulder pain (~1999) Stroke (~2006) Vision disorder Surgical History Anesthesia Hx of bilateral cataract extraction Status post colonoscopy Status post rotator cuff repair (~2004) Umbilical hernia (~2011) Family History Brother Age: 81 High cholesterol Father Mental health problem Dementia Mother Hypertension High cholesterol Social History household members: significant other Smoking Status: Former smoker alcohol intake: current Smoking Status: Former smoker alcohol intake frequency: holidays/special occasions only Substance Use Type: does not use Exam Initial Vital Signs Initial Vital Signs: Vital Signs Temperature 97.7 F 08/09/22 09:58 Pulse Rate 55 L 08/09/22 09:58 Respiratory Rate 16 08/09/22 09:58 Blood Pressure 155/75 H 08/09/22 09:58 Pulse Oximetry 97 08/09/22 09:58 Oxygen Delivery Method Room Air 08/09/22 09:58 GENERAL: Alert pleasant 86-year-old male and in no acute distress. HEENT: Head atraumatic,EOMI, pupils reactive, face symmetric, moist mucous membranes Pressure left eye 32mmHg Pressure right eye 20mmHg CARDIOVASCULAR: Regular rate and rhythm without murmurs, rubs or gallops. RESPIRATORY: Breath sounds equal bilaterally, no wheezes rales or rhonchi. ABDOMEN: Soft, nontender. Normoactive bowel sounds all 4 quadrants. No guarding or rebound. EXTREMITIES: Normal range of motion, no clubbing or edema. Neurovascularly intact NEUROLOGICAL: Alert and oriented x4.Normal gait and speech. Cranial nerves II through XII grossly intact. Good wrmlir-xk-zmtb, good ttxj-lx-ujvl, strength equal bilaterally, no dysarthria or aphasia, sensation in tact to soft touch bilaterally, no visual changes, no facial droop SKIN: Warm, dry, no laceration, no petechiae, no rashes or lesions. Scores NIH Stroke Scale Level of Conciousness: Alert, keenly responsive Ask month/age: Answers both questions correctly. Open/close eyes, close hand: Performs both tasks correctly Best gaze horizontal: Normal Visual crenshaw: No visual loss Facial palsy: Normal symetrical movement Left arm drift: No drift for full 10 sec Right arm drift: No drift for full 10 sec Left leg drift: No drift for full 5 sec Right leg drift: No drift for full 5 sec Limb ataxia: Absent Sensory on face/arms/legs: Normal, no sensory loss Best language: No aphasia, normal Dysarthria: Normal Extinction or inattention: No abnormality Total NIH Stroke scale score: 0 Course Orders Ordered: ED Orders 08/09/22 11:37 Urine Drug Screen, Rapid Stat Discontinued Medications Ondansetron HCl (Ondansetron 4 Mg/2 Ml Inj) 4 mg IV NOW PRN PRN Reason: Nausea And Vomiting Ondansetron HCl (Ondansetron 4 Mg Odt) 4 mg SL NOW PRN PRN Reason: Nausea And Vomiting Proparacaine HCl (Proparacaine 0.5% Ophth Enma) 1 drops EYE-BOTH NOW ONE Stop: 08/09/22 10:59 Vital Signs Vital signs: Vital Signs - 8 hr 08/09/22 12:00 08/09/22 12:30 08/09/22 12:58 Pulse Rate 51 L 53 L Respiratory Rate 17 14 Blood Pressure 156/71 H Pulse Oximetry 95 94 Oxygen Delivery Method Room Air 08/09/22 12:58 08/09/22 13:00 08/09/22 13:00 Pulse Rate 54 L 52 L Respiratory Rate 16 Blood Pressure 136/67 Pulse Oximetry 96 94 Oxygen Delivery Method 08/09/22 13:16 08/09/22 13:16 08/09/22 13:30 Pulse Rate 51 L Respiratory Rate 15 Blood Pressure 146/76 H 142/79 H Pulse Oximetry 96 Oxygen Delivery Method 08/09/22 13:30 08/09/22 13:46 08/09/22 13:46 Pulse Rate 51 L 56 L Respiratory Rate 14 19 Blood Pressure 154/65 H Pulse Oximetry 96 97 Oxygen Delivery Method 08/09/22 14:00 Pulse Rate 70 Respiratory Rate 20 Blood Pressure Pulse Oximetry 98 Oxygen Delivery Method MDM - Neuro Symptoms/Deficit Lab Data 08/09/22 10:06 08/09/22 10:06 Labs: Lab Results 08/09/22 08/09/22 08/09/22 Range/Units 10:06 10:06 10:06 WBC 8.0 (4.5-11.0) X10^3/uL RBC 4.55 (4.5-5.9) X10^6/uL Hgb 13.4 L (13.5-17.5) g/dL Hct 40.4 L (41-53) % MCV 88.6 (80-100) fL MCH 29.4 (26-34) PG MCHC 33.2 (30-36) % RDW 13.2 (11.6-14.8) % Plt Count 316 (150-400) X10^3/uL Neut % (Auto) 54.1 (50-75) % Lymph % (Auto) 32.3 (25-40) % [place] % (Auto) 10.0 (3-14) % Eos % (Auto) 3.1 (2-4) % Baso % (Auto) 0.5 (0-2) % Neut # (Auto) 4300 (3903-0049) /uL Lymph # (Auto) 2600 (7486-7878) /uL [place] # (Auto) 800 (0-900) /uL Eos # (Auto) 200 (0-450) /uL Baso # (Auto) 0 (0-100) /uL PT 11.2 (10.1-12.7) SECONDS INR 1.0 (0.9-1.3) APTT 30 (26-36) SECONDS Sodium 135 L (137-145) mmol/L Potassium 4.1 (3.4-5.1) mmol/L Chloride 100 (98-107) mmol/L Carbon Dioxide 31 (22-32) mmol/L BUN 19 (9-20) mg/dL Creatinine 0.82 (0.66-1.25) mg/dL Estimated GFR > 60 (>60) mL/min BUN/Creatinine Ratio 23.2 H (6-22) Glucose 85 (80-110) mg/dL Calcium 9.2 (8.4-10.2) mg/dL Magnesium 2.0 (1.6-2.3) mg/dL Total Bilirubin 0.7 (0.2-1.3) mg/dL AST 27 (17-59) IU/L ALT 24 (<50) IU/L Alkaline Phosphatase 60 (38-126) U/L Total Creatine Kinase 70 (55-170) U/L CK-MB (CK-2) TNP CK-MB (CK-2) Rel Index TNP Troponin I < 0.012 (0.01-0.034) ng/mL Total Protein 7.0 (6.3-8.2) g/dL Albumin 3.9 (3.5-5.0) g/dL Globulin 3.1 (1.7-4.1) g/dL Albumin/Globulin Ratio 1.3 (1.0-2.8) U Opiates 300ng/mL cut (Negative) Ur Oxycodone Screen (Negative) Urine Methadone Screen (Negative) Ur Barbiturates Screen (Negative) U Tricyclic Antidepress (Negative) Ur Phencyclidine Scrn (Negative) Ur Amphetamines Screen (Negative) U Methamphetamines Scrn (Negative) Ur MDMA Scrn (Ecstasy) (Negative) U Benzodiazepines Scrn (Negative) Urine Cocaine Screen (Negative) U Marijuana (THC) Screen (Negative) 08/09/22 Range/Units 11:37 WBC (4.5-11.0) X10^3/uL RBC (4.5-5.9) X10^6/uL Hgb (13.5-17.5) g/dL Hct (41-53) % MCV (80-100) fL MCH (26-34) PG MCHC (30-36) % RDW (11.6-14.8) % Plt Count (150-400) X10^3/uL Neut % (Auto) (50-75) % Lymph % (Auto) (25-40) % [place] % (Auto) (3-14) % Eos % (Auto) (2-4) % Baso % (Auto) (0-2) % Neut # (Auto) (4031-7792) /uL Lymph # (Auto) (2169-2647) /uL [place] # (Auto) (0-900) /uL Eos # (Auto) (0-450) /uL Baso # (Auto) (0-100) /uL PT (10.1-12.7) SECONDS INR (0.9-1.3) APTT (26-36) SECONDS Sodium (137-145) mmol/L Potassium (3.4-5.1) mmol/L Chloride (98-107) mmol/L Carbon Dioxide (22-32) mmol/L BUN (9-20) mg/dL Creatinine (0.66-1.25) mg/dL Estimated GFR (>60) mL/min BUN/Creatinine Ratio (6-22) Glucose (80-110) mg/dL Calcium (8.4-10.2) mg/dL Magnesium (1.6-2.3) mg/dL Total Bilirubin (0.2-1.3) mg/dL AST (17-59) IU/L ALT (<50) IU/L Alkaline Phosphatase (38-126) U/L Total Creatine Kinase (55-170) U/L CK-MB (CK-2) CK-MB (CK-2) Rel Index Troponin I (0.01-0.034) ng/mL Total Protein (6.3-8.2) g/dL Albumin (3.5-5.0) g/dL Globulin (1.7-4.1) g/dL Albumin/Globulin Ratio (1.0-2.8) U Opiates 300ng/mL cut Negative (Negative) Ur Oxycodone Screen Negative (Negative) Urine Methadone Screen Negative (Negative) Ur Barbiturates Screen Negative (Negative) U Tricyclic Antidepress Negative (Negative) Ur Phencyclidine Scrn Negative (Negative) Ur Amphetamines Screen Negative (Negative) U Methamphetamines Scrn Negative (Negative) Ur MDMA Scrn (Ecstasy) Negative (Negative) U Benzodiazepines Scrn Negative (Negative) Urine Cocaine Screen Negative (Negative) U Marijuana (THC) Screen Negative (Negative) Point of Care Testing Glucose POC 82 Urine Dip Bedside Urine Glucose Negative Bedside Urine Bilirubin - Negative Bedside Urine Ketone - Negative Urine Specific [place] 1.010 Bedside Urine Occult Blood - Negative Bedside Urine pH 6.5 Bedside Urine Protein - Negative Bedside Urine Urobilinogen - Negative Bedside Urine Nitrite - Negative Bedside Urine Leukocytes - Negative Esterase Imaging Data CT scan - head: Radiologist's Impression: PROCEDURE:? CT STROKE ? INDICATIONS:? Positive BE-FAST, Stroke symptoms ? TECHNIQUE:? Noncontrast 4.5 mm thick angled axial sections acquired from the foramen magnum to the vertex, with coronal reformats.? For radiation dose reduction, the following was used:? automated exposure control, adjustment of mA and/or kV according to patient size.? ? COMPARISON:? [facility], CT, CT STROKE, 06/18/2020, 16:21. ? FINDINGS:? Image quality:? Excellent.? ? CSF spaces:? Basal cisterns are patent.? No extra-axial fluid collections.? Ventricles are normal in size and shape.? ? Brain:? No midline shift.? No intracranial masses or hemorrhage.? No area of hypodensity in a large vascular distribution to suggest acute infarction.? Hypodense focus at the right basal ganglia is unchanged.? Periventricular hypodensity consistent with chronic microvascular ischemic change. Age-related parenchymal loss. ? Skull and face:? Calvarium and visualized facial bones are intact, without suspicious lesions.? ? Sinuses:? Visualized sinuses and mastoids are clear.? ? IMPRESSION:? No acute intracranial abnormality. ? 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 ? Comment: Findings were discussed with Ailyn Barnes at 10:32 a.m. ? This study fulfills neurological imaging criteria for inclusion or exclusion of acute stroke therapies based on available published neurological imaging guidelines.? ? ? Dictated by: Solis Coombs M.D. on 08/09/2022 at 10:27 ?? Chest x-ray: Radiologist's Impression: PROCEDURE:? XR CHEST 1V ? INDICATIONS:? Possible stroke ? TECHNIQUE:? One view of the chest was acquired.? ? COMPARISON:? [facility], CR, XR CHEST 2V, 01/29/2020, 10:36. ? FINDINGS:? ? Surgical changes and devices:? None.? ? Lungs and pleura:? Lungs are clear.? No pleural effusions or pneumothorax.? ? Mediastinum:? Mediastinal contours appear normal.? Heart size is normal.? ? Bones and chest wall:? No suspicious bony lesions.? Overlying soft tissues appear unremarkable.? ? IMPRESSION:? No evidence acute pulmonary process. ? ? ? Dictated by: Kyree Romo M.D. on 08/09/2022 at 10:42 ? CTA - brain/neck: Radiologist's Impression: PROCEDURE:? CT ANGIO HEAD AND NECK ? INDICATIONS:? head pain and blurred vision. Hx of TIA ? TECHNIQUE:? After the administration of intravenous contrast, 1 mm thick sections acquired from the aortic arch through the [place] of [place].? Post-contrast 4.5 mm thick sections then re-acquired from the foramen magnum to the vertex.? 3-dimensional ieyelya-ijtwysfzs-bucztlscjj (MIP) and/or volume rendering reformats were acquired of the central intracranial vasculature and neck separately. For radiation dose reduction, the following was used:? automated exposure control, adjustment of mA and/or kV according to patient size.? ? COMPARISON:? [facility], CT, CT STROKE, 08/09/2022, 10:13.? [facility], MR, MR STROKE, 11/27/2020, 19:02. ? FINDINGS:? Image quality:? Excellent.? ? BRAIN:? CSF spaces:? Ventricles are normal in size and shape.? Basal cisterns are patent.? No extra-axial fluid collections.? ? Brain:? No midline shift.? No intracranial bleeds or masses.? Tavares-white matter interface appears intact.? Age-related volume loss and mild small vessel ischemic change.? 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 Old right basal ganglia lacunar infarction. ? Skull and face:? Calvarium and facial bones appear intact, without suspicious lesions.? Orbits appear normal.? ? Sinuses:? Sinuses and mastoids are clear.? ? HEAD CT ANGIOGRAPHY:? Anterior circulation:? Intracranial internal carotid arteries are normal in size and flow.? The flow within the paired anterior cerebral arteries is normal and symmetric.? The flow within the middle cerebral arteries is normal and symmetric.? The anterior communicating artery is seen.? No aneurysms are seen.? ? Posterior circulation:? Visualized portions of the vertebral arteries demonstrate normal caliber, and join to form a normal appearing basilar artery.? Flow within the posterior cerebral arteries is normal and symmetric.? No aneurysms are seen.? ? NECK CT ANGIOGRAPHY:? Carotid system:? The great vessels demonstrate a conventional anatomy as they arise from the aortic arch.? The origins of the common carotid arteries appear patent.? The common carotid arteries demonstrate normal caliber and courses.? The bifurcation regions are both widely patent.? The internal carotid arteries demonstrate normal calibers and courses.? ? Posterior circulation:? The origins of the vertebral arteries both appear widely patent.? The more superior extracranial portions of both vertebral arteries also demonstrate normal courses and calibers.? They join to form a normal appearing basilar artery.? ? Soft tissues:? Visualized neck soft tissues demonstrate no suspicious abnormalities.? ? Bones:? No suspicious bony lesions.? Visualized cervical spine appears normally aligned.? IMPRESSION:? ? 1. Old small infarcts. ? 2. No acute intracranial process. ? 3. Unremarkable CTA head.? No stenosis, aneurysm, occlusion, or focal filling defect. ? 4. Patent carotids. ? Comment: Findings were discussed with Dr. Barnes on? 08/09/2022 at 1040 hours ? ? ? Any quantitative measurements of stenosis were performed using NASCET criteria.? ? ? Dictated by: Kyree Romo M.D. on 08/09/2022 at 10:36 ? ? ECG Data Interpretation: Normal sinus rhythm rate 58 KS interval [address] changes no T-wave inversions right bundle-branch block MDM Narrative Medical decision making narrative: Patient 86-year-old male with history of left visual changes been seen by Ophthalmology presents today with clouding of his left vision. Sounds as though this is happened to him before today he has mild elevation in pressure who 32 in the left eye and right eye is 20. He is no focal deficits he is able to read his book and rest comfortably. CT head and neck angio are negative. Bedside ultrasound done by myself does not show any for retinal detachment. I suspect actual visual problem rather than CVA. While in the ED he received a phone call referring him to a corneal specialist. I discussed with Dr. Mcgregor eye pressures reports Lanre-Pen not significantly accurate for the mid-range pressors only for low and high pressures and not to worry with this particular pressure. At this time no further recommendations. Patient can have outpatient MRI. At this time I do not see a need for any further workup patient has had symptoms multiple times over last 45 days. Discharge Plan Departure Patient Disposition: Home Clinical Impression: Change in vision Instructions: DI for Visual Field Disturbances Activity Restrictions/Additional Instructions: *You have been diagnosed with visual change *What to do: At this time please follow-up with your primary care provider and ophthalmology. *Continue to take medications as directed *Follow up with your primary care provider in 2-3 days or call [phone] *Return to ER if you should have loss of vision confusion numbness tingling weakness [or] any new, worsening or concerning symptoms Prescriptions: No Action amlodipine [Norvasc] 5 mg tablet 5 mg PO QDAY Qty: 90 3RF Patient Comments: Pt takes at night hydrochlorothiazide 25 mg tablet 25 mg PO DAILY Qty: 90 3RF omeprazole 20 mg capsule,delayed release(DR/EC) See Rx Instructions .ROUTE .COMPLEX Qty: 90 3RF Dose Instruction: Take 1 capsule (20 mg) by mouth daily Rx Instructions: Take 1 capsule (20 mg) by mouth daily allopurinol 300 mg tablet 150 mg PO DAILY aspirin 325 mg Tablet 325 mg PO DAILY atorvastatin 40 mg tablet 20 mg PO BEDTIME epinephrine 0.3 MG/0.3 ML auto-injector 0.3 mg IM X1 PRN (Reason: Allergic Reaction) oxycodone 5 mg tablet 5 mg PO Q6H PRN (Reason: pain) Qty: 20 0RF acetaminophen [Tylenol] 325 mg capsule 650 mg PO QID PRN (Reason: pain) Qty: 60 0RF Referrals: Cali Gupta MD [Primary Care Provider] - Stand Alone Forms: Patient Portal/API
[2022-08-09 12:28] LABS: UR Morphine/Opiate cutoff 300 Negative (Negative); Ur Creatinine Normal (Normal); Ur Specific Gravity Normal (Normal); Urine Amphetamines Negative (Negative); Urine Barbiturates Negative (Negative); Urine Benzodiazepines Negative (Negative); Urine Cocaine Negative (Negative); Urine MDMA Negative (Negative); Urine Methadone Negative (Negative); Urine Methamphetamines Negative (Negative); Urine Oxycodone Negative (Negative); Urine Phencyclidine Negative (Negative); Urine Tetrahydrocannabinol Negative (Negative); Urine Tricyclic Antidepressant Negative (Negative); Urine pH Normal (Normal)
== END 2022-08-09 14:17 | disposition home or self-care (01) ==
PROVIDERS: Emergency Provider Emergency Medicine; Family Provider Family Medicine; PCP Family Medicine
DX: H53.9 Unspecified visual disturbance (principal); R51.9 Headache, unspecified; R29.818 Other symptoms and signs involving the nervous system; Z86.73 Personal history of transient ischemic attack (TIA), and cerebral infarction without residual deficits
CPT/HCPCS: 36415; 70450; 70496; 70498; 71045; 80053; 80305; 81003; 82550; 82962; 83735; 84484; 85025; 85610; 85730; 93005; 99284; 99285; Q9967

== ENCOUNTER → 2022-08-12 14:05 | Outpatient (CLI) | payer OTHER, SELFPAY ==
[2021-11-20 08:56] VITALS: BMI 31.5
--- NOTE | 2022-08-12 | DI.RAD.S_ITS ---
PROCEDURE: XR SHOULDER LT MIN 2V INDICATIONS: Pain in left shoulder TECHNIQUE: 3 views of the shoulder were acquired. COMPARISON: None. FINDINGS: Bones: No fractures or dislocations. No suspicious bony lesions. Visualized ribs appear intact. Severe joint space narrowing of the glenohumeral joint with subchondral sclerosis, marginal osteophyte formation, and mild remodeling of the articular surfaces. Tinr-ih-thmxggvp degenerative changes at the acromioclavicular joint. Soft tissues: No suspicious soft tissue calcifications. 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 Approved by: Delta Leiva M.D. on 08/12/2022 at 16:40
== END ==
PROVIDERS: Family Provider Family Medicine; PCP Family Medicine; Referring Provider Family Medicine; Visit Provider Family Medicine
DX: M19.012 Primary osteoarthritis, left shoulder (principal); M25.512 Pain in left shoulder
CPT/HCPCS: 73030

== ENCOUNTER 2022-11-16 06:47 | Day surgery (SDC) | payer OTHER, SELFPAY ==
[2021-11-20 08:56] VITALS: BMI 31.5
[2022-11-16 07:11] VITALS: BP 115/70; PULSE 62; RESP 17; TEMP 36.3; O2SAT 97; BMI 31.4
[2022-11-16] MEDS: LACTATED RINGERS 1,000 ML 150 ML IV (07:22)
--- NOTE | 2022-11-16 07:41 | P.HP_ITS ---
History of Present Illness History of Present Illness Date Patient Seen: 11/16/22 Time Patient Seen: 07:41 Chief complaint: Colonoscopy Narrative: 87-year-old man here for diagnostic colonoscopy. He would 1 episode range noticed some blood in his stool. No abdominal pain. Last colonoscopy 5 years ago normal. No family history of intestinal malignancy. He takes 325 mg of aspirin daily. 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) Chicken pox Dementia Diverticular disease Encysted hydrocele Gout (~1999) Hearing deficit Hearing loss (~1994) Hiatal hernia Hyperlipidemia Hypertension Measles Mumps Psoriasis Shoulder pain (~1999) Stroke (~2006) Vision disorder Surgical History Anesthesia Hx of bilateral cataract extraction Status post colonoscopy Status post rotator cuff repair (~2004) Umbilical hernia (~2011) Family History Brother Age: 81 High cholesterol Father Mental health problem Dementia Mother Hypertension High cholesterol Social History household members: spouse Smoking Status: Former smoker alcohol intake: current Meds Home Medications and Allergies Home Medications Medication Instructions Recorded Confirmed Type amlodipine 5 mg tablet (Norvasc) 5 mg PO QDAY #90 tabs 12/21/19 11/16/22 Rx hydrochlorothiazide 25 mg tablet 25 mg PO DAILY #90 tabs 12/21/19 11/16/22 Rx allopurinol 300 mg tablet 150 mg PO DAILY 06/18/20 11/16/22 History aspirin 325 mg tablet 325 mg PO DAILY 11/12/21 11/16/22 History atorvastatin 40 mg tablet 20 mg PO BEDTIME 11/12/21 11/16/22 History epinephrine 0.3 mg/0.3 mL 0.3 mg IM X1 PRN Allergic Reaction 11/12/21 11/16/22 History injection, auto-injector acetaminophen 325 mg capsule 650 mg PO QID PRN pain #60 caps 11/19/21 11/16/22 Rx (Tylenol) valacyclovir 1 gram tablet 1,000 mg PO 3XD 11/16/22 11/16/22 History Allergies Allergy/AdvReac Type Severity Reaction Status Date / Time bee venom protein (honey bee) Allergy Swelling Verified 12/18/21 09:41 Exam Vital Signs (past 8 hours): - 11/16/22 07:11 Temperature 97.4 F L Pulse Rate 62 Respiratory Rate 17 Blood Pressure 115/70 Pulse Oximetry 97 Oxygen Delivery Method Room Air Oxygen Delivery Method Room Air Narrative Exam Narrative: General adult man alert oriented no acute distress Abdomen soft nontender nondistended Assessment & Plan Assessment and plan (1) Rectal bleeding: Status: Acute Assessment & Plan narrative: 87-year-old man with rectal bleeding here for diagnostic colonoscopy Technical details were discussed. Risks, benefits, alternatives explained. Risks including but not limited to myocardial infarction, aspiration, bleeding, pain, missed lesion, incomplete examination, need for further radiographic studies, colonic perforation, and need for major abdominal surgery were discussed. All questions were answered to their satisfaction, and they are in agreement with this plan.
--- NOTE | 2022-11-16 07:43 | P.OP.COLON_ITS ---
Operative Date/Time/Diagnoses Date of procedure: 11/16/22 Time of procedure: 07:43 Pre-op diagnosis: Rectal bleeding Procedure & Clinicians Study performed: Diagnostic colonoscopy Same procedure as scheduled: Yes Indications: 87-year-old man with rectal bleeding here for diagnostic colonoscopy Surgeon: Joaquin Rosales Procedure Notes Procedure in detail: The history and physical was performed/updated and the patient is ASA class is 2. The procedure was discussed in detail with the patient. Potential risks complications including infection, bleeding, missed diagnosis, perforation, need for surgery, and were explained. Their questions were answered and in formed consent was obtained. Patient was brought to the procedure room and placed standard monitoring equipment. The patient's vital signs were monitored continuously throughout the entire procedure. Prior to starting time-out was performed. The patient was placed in the left lateral recumbent position. Procedural sedation was administered by anesthesia. Examination began with a thorough inspection of the perianal area there was no evidence of fissures, fistulae, external hemorrhoids or cutaneous malignancy. The colonoscopy scope was then placed into the anal canal and was advanced to the cecum, which was identified by the ileocecal valve, the appendiceal orifice and the confluence of the taenia. The scope was then slowly withdrawn examining colon thoroughly in all directions, irrigating it of any residual stool. Sigmoid-extensive diverticulosis. Rectum grade 1 internal hemorrhoids The patient tolerated the procedure well. They will be discharged once criteria are met. The prep was of fair quality. The withdrawl time was 6 minutes. Specimen(s): none sent Impression: Normal colonoscopy Post-procedure Recommendations: High fiber diet Plan for aftercare: No further colonoscopy needed unless symptomatic Disposition: same day surgery
[2022-11-16 08:12] VITALS: BP 105/61; PULSE 59; RESP 18; TEMP 36.3; O2SAT 90
[2022-11-16 08:14] VITALS: BP 109/65; PULSE 57; RESP 14; O2SAT 91
[2022-11-16 08:19] VITALS: BP 105/64; PULSE 62; RESP 14; O2SAT 92
[2022-11-16 08:23] VITALS: BP 101/72; PULSE 16; RESP 16; TEMP 36.7; O2SAT 92
[2022-11-16 08:25] VITALS: BP 107/58; PULSE 64; RESP 17; O2SAT 96
--- NOTE | 2022-11-16 08:38 | SUR.PHASEI ---
Intermittent moist cough. Patient reported sore thoat. Mason Brandt CRNA notified. He discussed with patient that his throat was suctioned during procedure due to oral secretions. No new orders.
== END 2022-11-16 08:48 | disposition home or self-care (01) ==
PROVIDERS: Family Provider Family Medicine; PCP Family Medicine; Referring Provider Surgery; Visit Provider Surgery
PROC: 0DJD8ZZ Inspection of Lower Intestinal Tract, Via Natural or Artificial Opening Endoscopic (ICD-10-PCS; CPT 45378; principal; 2022-11-16 07:45)
DX: K62.5 Hemorrhage of anus and rectum (principal); K57.30 Diverticulosis of large intestine without perforation or abscess without bleeding; K64.0 First degree hemorrhoids
CPT/HCPCS: 45378; J2704

== ENCOUNTER → 2023-03-31 16:46 | Outpatient (CLI) | payer OTHER, SELFPAY ==
[2021-11-20 08:56] VITALS: BMI 31.5
--- NOTE | 2023-03-31 16:47 | DI.US.S_ITS ---
PROCEDURE: US PERIPH VENOUS LOW EXTREM RT INDICATIONS: Pain in right leg TECHNIQUE: Real-time imaging, as well as color and pulse Doppler interrogation, were performed of the lower extremity deep veins from the inguinal ligament to the popliteal fossa, with documentation of the visualized calf veins. COMPARISON: None. FINDINGS: The common femoral, femoral, popliteal, and the visualized calf veins are normally compressible, and free of intraluminal thrombus. Color and pulse Doppler demonstrate normal phasic intraluminal flow. There is normal augmentation response to distal compression maneuver. Moderate right ankle soft tissue edema can be seen. IMPRESSION: No findings of lower extremity deep venous thrombosis. Dictated by: Faizan Walter M.D. on 03/31/2023 at 17:12 Approved by: Faizan Walter M.D. on 03/31/2023 at 17:12
== END ==
PROVIDERS: Family Provider Family Medicine; PCP Family Medicine; Referring Provider Family Medicine; Visit Provider Family Medicine
DX: M79.604 Pain in right leg (principal); M79.89 Other specified soft tissue disorders
CPT/HCPCS: 93971

== ENCOUNTER 2024-05-10 23:17 | Emergency (ER) | payer OTHER, SELFPAY ==
[2021-11-20 08:56] VITALS: BMI 31.5
[2024-05-10 23:46] VITALS: BP 185/84; PULSE 55; RESP 16; TEMP 36.4; O2SAT 96; BMI 29.0
[2024-05-11 01:36] VITALS: BP 170/78; PULSE 53; RESP 18; O2SAT 97
--- NOTE | 2024-05-11 01:56 | PC.NURSE ---
having trouble with bp, denies any cp
--- NOTE | 2024-05-11 01:58 | ED_ITS ---
HPI - General Adult General Chief complaint: Hypertension Stated complaint: Elevated BP-Hx of TIA Time Seen by Provider: 05/11/24 01:58 Source: patient Mode of arrival: Ambulatory History of Present Illness HPI narrative: 88-year-old male with a past medical history of hypertension, TIA, comes into the ED from home for evaluation of elevated blood pressure. He states that he has been having issues with his blood pressure ongoing for the past 3 weeks, he states that he had an episode of hypotension a few months ago therefore he has been having changes of his blood pressure medication with his primary care doctor Dr. Omer, this past week. Initially he was on 5 mg amlodipine and 25 mg hydrochlorothiazide. He states that 1 week ago he was taken off his amlodipine and is now on 12.5 mg hydrochlorothiazide. He states his blood pressure was normal for about a day or 2 but has been slowly increasing since. He states that today he noticed his blood pressure was 150 systolically therefore was worried and came into the ED for further evaluation treatment. He states that he has baseline left eye issues which is hard for him to describe whether or not he is actually having a headache but denies any actual visual disturbances. Patient denies any other symptoms such as chest pain shortness of breath fever chills nausea vomiting abdominal pain or any other GI/ symptoms at this time Related Data Home Medications Medication Instructions Recorded Confirmed allopurinol 300 mg tablet 150 mg PO DAILY 06/18/20 11/16/22 aspirin 325 mg tablet 325 mg PO DAILY 11/12/21 05/10/24 atorvastatin 40 mg tablet 20 mg PO BEDTIME 11/12/21 05/10/24 epinephrine 0.3 mg/0.3 mL 0.3 mg IM X1 PRN Allergic Reaction 11/12/21 11/16/22 injection, auto-injector valacyclovir 1 gram tablet 1,000 mg PO 3XD 11/16/22 11/16/22 hydrochlorothiazide 25 mg tablet 12.5 mg PO DAILY 05/10/24 05/10/24 Previous Rx's Medication Instructions Recorded amlodipine 5 mg tablet (Norvasc) 5 mg PO QDAY #90 tabs 12/21/19 acetaminophen 325 mg capsule 650 mg (2 x 325 mg) PO QID PRN 11/19/21 (Tylenol) pain #60 caps Allergies Allergy/AdvReac Type Severity Reaction Status Date / Time bee venom protein (honey bee) Allergy Swelling Verified 12/18/21 09:41 Review of Systems Review of Systems Narrative: General: Denies fever, chills, weight loss HEENT: Denies headache, eye drainage, eye irritation, head trauma, sore throat, voice change Cardiovascular: Positive hypertension, Denies any chest pain, palpitations, tachycardia Respiratory: Denies any shortness of breath, cough, wheeze, stridor GI/: Denies any abdominal pain, nausea, vomiting, diarrhea, bright red blood per rectum, melanotic stools, urinary frequency, urinary retention, dysuria, hematuria MSK: Denies any joint pain, muscle pains, swelling Skin: Denies any rashes, lesions, discoloration Neuro: Denies any headache, lightheadedness, dizziness, fainting, weakness Psych: Denies SI/HI 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) Chicken pox Dementia Diverticular disease Encysted hydrocele Gout (~1999) Hearing deficit Hearing loss (~1994) Hiatal hernia Hyperlipidemia Hypertension Measles Mumps Psoriasis Shoulder pain (~1999) Stroke (~2006) Vision disorder Surgical History Anesthesia Hx of bilateral cataract extraction Status post colonoscopy Status post rotator cuff repair (~2004) Umbilical hernia (~2011) Family History Brother Age: 81 High cholesterol Father Mental health problem Dementia Mother Hypertension High cholesterol Social History household members: spouse Smoking Status: Former smoker alcohol intake: current Smoking Status: Former smoker alcohol intake frequency: a few times a month Exam Narrative Exam Narrative: General: Cooperative, comfortable, well-developed, not in acute distress HEENT: Normocephalic, atraumatic, PERRLA, normal sclera, eyelids normal, Neck: Active full range of motion, atraumatic Chest: Normal to inspection, negative crepitus, no overlying erythema ecchymosis Respiratory: Normal respiratory effort, not in acute respiratory distress, clear to auscultation bilaterally negative cough, wheeze, tachypnea, rhonchi, rales Cardiology: Regular rate rhythm negative gallop, murmur, rubs GI/: Normal to inspection, soft, nonrigid, no tenderness to palpation, exam deferred MSK: Full range of active range of motion of all 4 extremities, atraumatic Skin: No rashes lesions noted Neuro: NIH of 0, no focal deficits noted Alert awake oriented x3, moves all 4 extremities spontaneously, cranial nerves intact, able to answer all questions appropriately follows commands appropriately Psych: Cooperative, negative suicidal or homicidal ideations Initial Vital Signs Initial Vital Signs: Vital Signs Temperature 97.5 F L 05/10/24 23:46 Pulse Rate 55 L 05/10/24 23:46 Respiratory Rate 16 05/10/24 23:46 Blood Pressure 185/84 H 05/10/24 23:46 Pulse Oximetry 96 05/10/24 23:46 Oxygen Delivery Method Room Air 05/10/24 23:46 Course Orders Ordered: ED Orders 05/11/24 02:13 CT head/brain wo con Stat Vital Signs Vital signs: Vital Signs - 8 hr 05/10/24 23:46 05/11/24 01:36 05/11/24 01:36 Temperature 97.5 F L Pulse Rate 55 L 53 L Respiratory Rate 16 18 Blood Pressure 185/84 H 170/78 H Pulse Oximetry 96 97 Oxygen Delivery Method Room Air Medical Decision Making Differential Diagnosis Differential Diagnosis: Hypertension, intracranial hemorrhage Imaging Data CT scan - head: Radiologist's Impression: Preliminary read showing no acute intracranial abnormality MDM Narrative Medical decision making narrative: 88-year-old male with a history of hypertension TIA presents to the emergency department for elevated blood pressure. He states that he is having changes to his blood pressure medication by his primary care doctor Dr. Omer. He states that they are adjusting his medications due to the fact that several months ago he had episodes of hypotension he was initially on 5 mg amlodipine and 25 mg hydrochlorothiazide. He was changed to 12.5 mg hydrochlorothiazide only a proximally 1 week ago. He states that since then he has had gradual increase in his blood pressure today he states that it was 150 systolically and was worried therefore decided come into the ED for further evaluation treatment. He does state that he has issues with his left eye and has persistent/chronic pressure to his left head therefore unsure if he is actually having any headache with this associated elevated blood pressure. Did obtain CT scan of the head in the emergency department without any acute intracranial abnormality. Patient on exam without any focal deficits answering all questions appropriately patient has elevated blood pressure more likely secondary to medication change he is not having any chest pain shortness of breath I instructed patient to restart his amlodipine 2.5 that he was previously on and to follow up with his primary care doctor. He agrees with the plan he was given strict return precautions verbalized understanding of this and agrees to being discharged home with outpatient follow up Discharge Plan Departure Patient Disposition: Home Clinical Impression: Hypertension Activity Restrictions/Additional Instructions: Please call/follow up with your primary care doctor for continued evaluation treatment of your blood pressure Please read the discharge instructions sheet carefully and bring all papers to all doctor follow-up visits, as it may contain information that your doctor may want to see. Disease processes change and evolve, if your symptoms worsen or if you develop any new symptoms that are concerning to you please return for evaluation. Your evaluation today does not show any evidence of any life- threatening/serious illnesses requiring admission to the hospital or surgery. Please follow-up with your doctor for re-evaluation in approximately 1 day. Seek immediate medical attention for any worrisome symptoms. *If you do not have a primary care provider please contact the [facility] Resource line at [phone]. They will ask some questions about your medical history and help get you set up with a doctor in the community. Prescriptions: No Action amlodipine [Norvasc] 5 mg tablet 5 mg PO QDAY Qty: 90 3RF Patient Comments: Pt takes at night allopurinol 300 mg tablet 150 mg PO DAILY aspirin 325 mg Tablet 325 mg PO DAILY atorvastatin 40 mg tablet 20 mg PO BEDTIME epinephrine 0.3 MG/0.3 ML auto-injector 0.3 mg IM X1 PRN (Reason: Allergic Reaction) acetaminophen [Tylenol] 325 mg capsule 650 mg PO QID PRN (Reason: pain) Qty: 60 0RF valacyclovir 1 gram tablet 1,000 mg PO 3XD hydrochlorothiazide 25 mg tablet 12.5 mg PO DAILY Referrals: Cali Gupta MD [Primary Care Provider] - Stand Alone Forms: Patient Portal/API/Survey
[2024-05-11 02:00] VITALS: BP 176/84; PULSE 55; O2SAT 96
--- NOTE | 2024-05-11 02:13 | DI.CT.S_ITS ---
PROCEDURE: CT HEAD/BRAIN WO CON INDICATIONS: HTN, left sided head pressure TECHNIQUE: Noncontrast 4.5 mm thick angled axial sections acquired from the foramen magnum to the vertex, with coronal and sagittal reformats. For radiation dose reduction, the following was used: automated exposure control, adjustment of mA and/or kV according to patient size. COMPARISON: [facility], CT, CT HEAD/BRAIN WO CON, 11/27/2020, 14:26. FINDINGS: Image quality: Diagnostic. CSF spaces: Basal cisterns are patent. No extra-axial fluid collections. The ventricles are symmetric in size and shape. Brain: No intracranial bleeds or masses. There is cerebral volume loss for age, with resultant ventricular and sulcal prominence. There are periventricular and deep white matter chronic small vessel ischemic changes. There is intracranial internal carotid artery atherosclerosis. Skull and face: Calvarium and visualized facial bones appear intact, without suspicious lesions. Sinuses: Visualized sinuses and mastoids are clear. IMPRESSION: No acute intracranial pathology. Findings are concordant with preliminary interpretation provided by [facility]. Dictated by: John Gardner M.D. on 05/11/2024 at 8:11 Approved by: John Gardner M.D. on 05/11/2024 at 8:13
[2024-05-11 02:34] VITALS: PULSE 54; O2SAT 96
[2024-05-11 03:55] VITALS: BP 152/74; PULSE 57; RESP 16; O2SAT 98
== END 2024-05-11 03:56 | disposition home or self-care (01) ==
PROVIDERS: Emergency Provider Student in an Organized Health Care Education/Training Program; Family Provider Family Medicine; PCP Family Medicine
DX: I10 Essential (primary) hypertension (principal); Z86.73 Personal history of transient ischemic attack (TIA), and cerebral infarction without residual deficits; Z87.891 Personal history of nicotine dependence; F10.90 Alcohol use, unspecified, uncomplicated
CPT/HCPCS: 70450; 99281; 99284

== ENCOUNTER → 2024-05-28 06:59 | Outpatient (CLI) | payer OTHER, SELFPAY ==
[2021-11-20 08:56] VITALS: BMI 31.5
--- NOTE | 2024-05-28 07:00 | DI.ECHO.S_ITS ---
[facility]+ [facility] : : [address] : : [place] : : [id number] : : Phone: [phone] Echocardiogram Report + + :Name: ANTIONE QURESHI Study Date: 05/28/2024 Height: 67 in : :Hospital ReadingLocation: Weight: 183 lb : : Gender: Male BSA: 1.9 m2 : :: 1935 Age: 88 yrs BP: 124/81 mmHg: :Reason For Study: TIA : :Ordering Physician: CLAIR, : :LEONEL Performed By: Vernell Reyes : :Referring: LEONEL SELF : + + Interpretation Summary 1. Left ventricle contractility is normal. Estimate ejection fraction is greater than 55% with no segmental wall motion abnormalities. No LVH. Grade 1 diastolic dysfunction. 2. The right ventricular contractility is normal. 3. All cardiac chambers are normal size. 4. Trace to mild tricuspid regurgitation with estimated pulmonary systolic artery pressures of 37 mmHg. 5. No obvious intracardiac shunts. 6. No obvious intracardiac masses nor thrombi. 7. No hemodynamically significant pericardial effusion. 8. Normal right-sided filling pressures. Conclusion: Normal biventricular systolic function with no significant valvular abnormalities. When compared with previous echocardiogram, no significant changes have occurred. Procedure: A two-dimensional transthoracic echocardiogram with color flow and Doppler was performed. The study quality was technically adequate. Comparison is made with the echocardiogram of 11/28/2020. The patient was in sinus bradycardia with heart rates between 56-63 bpm during the exam. Left Ventricle: The left ventricle is normal in size. The ejection fraction is estimated to be 55-60%. Right Ventricle: The right ventricle is normal in size and function. Atria: The left atrial size is normal. Right atrial size is normal. There is no Doppler evidence for an interatrial shunt. Mitral Valve: The mitral valve leaflets appear to open well. There is mild mitral annular calcification. There is trace mitral regurgitation. Aortic Valve: The aortic valve is trileaflet. The aortic valve is mildly calcified. There is discrete nodular thickening of the non- coronary cusp. There is no aortic valve stenosis. No aortic regurgitation is present. Tricuspid Valve: The tricuspid valve leaflets are thin and pliable. There is mild tricuspid regurgitation. The right ventricular systolic pressure is estimated to be at least 37 mmHg based on an estimated right atrial pressure of 8 mm Hg. Pulmonic Valve: The pulmonic valve leaflets are thin and pliable; valve motion is normal. There is no pulmonic valvular regurgitation. Great Vessels: The aortic root is normal size. The dimensions of the ascending aorta are normal. The IVC is of normal diameter and collapses less than 50% with a sniff. This suggests a right atrial pressure of 8 mm Hg. Pericardium/ Pleura There is no pericardial effusion. There is no pleural effusion. MMode/2D Measurements & Calculations LVIDd: 4.7 cm LVOT diam: 2.2 cm LVIDs: 3.1 cm asc Aorta Diam: 3.7 cm FS: 33.8 % Ao Arch Diam (Prox Trans): 2.6 cm IVSd: 0.82 cm LVPWd: 0.94 cm LV jain. diameter/BSA (cm/m^2): 2.4 LV sys. diameter/BSA (cm/m^2): 1.6 LA A2 area: 17.1 cm2 RA long axis: 5.4 cm LA A4 area: 12.1 cm2 RA area: 12.7 cm2 LA length (vol): 4.5 cm RA vol: 25.1 ml LA vol: 38.7 ml RA : 12.9 ml/m2 LA vol index: 19.9 ml/m2 IVC diam: 1.9 cm RVD1 (basal): 3.8 cm TAPSE: 2.2 cm Doppler Measurements & Calculations Ao V2 max: 180.8 cm/sec LVOT Max Venkatesh: 99.9 cm/sec Ao V2 mean: 127.5 cm/sec LV V1 max P.0 mmHg Ao max P.1 mmHg LV V1 VTI: 22.9 cm Ao mean P.3 mmHg SEBASTIAN(I,D): 2.2 cm2 Ao V2 VTI: 40.9 cm SEBASTIAN(V,D): 2.2 cm2 sev ratio: 0.56 SEBASTIAN indexed to BSA (cm^2/m^2): 1.1 MV E max venkatesh: 60.1 cm/sec TR max venkatesh: 270.7 cm/sec MV A max venaktesh: 104.4 cm/sec TR max P.3 mmHg MV E/A: 0.58 PA V2 max: 115.6 cm/sec Med Peak E' Venkatesh: 4.4 cm/sec PA V2 mean: 72.2 cm/sec E/E' med: 13.6 PA mean P.4 mmHg Lat Peak E' Venkatesh: 9.0 cm/sec PA pr(Accel): 40.5 mmHg E/E' lat: 6.7 E/e' average: 10.2 MV dec time: 0.32 sec SV(LVOT): 90.2 ml Reading Physician:BETO
== END ==
PROVIDERS: Family Provider Family Medicine; PCP Family Medicine; Referring Provider Family Medicine; Visit Provider Family Medicine
DX: G45.9 Transient cerebral ischemic attack, unspecified (principal); I08.1 Rheumatic disorders of both mitral and tricuspid valves
CPT/HCPCS: 93306

== ENCOUNTER → 2024-08-07 13:39 | Outpatient (CLI) | payer OTHER, SELFPAY ==
[2021-11-20 08:56] VITALS: BMI 31.5
--- NOTE | 2024-08-07 13:43 | DI.RAD.S_ITS ---
PROCEDURE: XR CHEST 2V INDICATIONS: COUGH TECHNIQUE: 2 views of the chest were acquired. COMPARISON: [facility], CR, XR CHEST 1V, 08/09/2022, 10:03. FINDINGS: Heart, mediastinum and pulmonary vascular: Heart is normal in size and configuration. Mediastinum is unremarkable. Pulmonary vascular is normal. Lungs: Minor lower lobe airspace disease is likely atelectasis and/or fibrosis Pleural spaces: Scattered bilateral pleural calcifications suggest asbestos exposure Bones and soft tissues: Normal IMPRESSION: No acute cardiopulmonary disease. Scattered bilateral pleural calcification is compatible with asbestos exposure Dictated by: Joshua Pritchett M.D. on 08/08/2024 at 10:00 Approved by: Joshua Pritchett M.D. on 08/08/2024 at 10:02
[2024-08-07 14:24] LABS: Add Manual Diff / Slide Review NO; Basophils Absolute Auto 0 /uL (0-100); Basophils Percent Auto 0.5 % (0-2); Eosinophils Absolute Auto 0 /uL (0-450); Eosinophils Percent Auto 0.4 % (2-4); Hematocrit 44.7 % (41-53); Hemoglobin 15.5 g/dL (13.5-17.5); Lymphocytes Absolute Auto 2000 /uL (1100-4500); Lymphocytes Percent Auto 21.7 % (25-40); Mean Corpuscular HGB Conc 34.7 % (30-36); Mean Corpuscular Hemoglobin 33.7 PG (26-34); Mean Corpuscular Volume 97.1 fL (80-100); Monocytes Absolute Auto 1000 /uL (0-900); Neutrophils Absolute Auto 6100 /uL (1500-7000); Neutrophils Percent Auto 66.4 % (50-75); Platelet Count 283 X10^3/uL (150-400); Red Cell Distribution Width 13.8 % (11.6-14.8); White Blood Cell Count 9.2 X10^3/uL (4.5-11.0)
[2024-08-07 14:49] LABS: Alanine Aminotransferase 23 IU/L (<50); Albumin 4.3 g/dL (3.5-5.0); Albumin Globulin Ratio 1.7 (1.0-2.8); Alkaline Phosphatase 63 U/L (38-126); Aspartate Aminotransferase 21 IU/L (17-59); BUN Creatinine Ratio 21.5 (6-22); Bilirubin Total 1.2 mg/dL (0.2-1.3); Blood Urea Nitrogen 17 mg/dL (9-20); C-Reactive Protein Quant < 0.5 mg/dL (<1.0); Calcium 9.6 mg/dL (8.4-10.2); Carbon Dioxide 29 mmol/L (22-32); Chloride 93 mmol/L (98-107); Estimated Glomerular Filt Rate > 60 mL/min (>60); Globulin 2.5 g/dL (1.7-4.1); Glucose 111 mg/dL (70-99); HEMOLYSIS < 15 (0-50); Potassium 4.2 mmol/L (3.4-5.1); Sodium 130 mmol/L (137-145); Total Protein 6.8 g/dL (6.3-8.2)
[2024-08-07 14:54] LABS: NT-proBNP (BNP-Adult 18+) 32 pg/mL (<450)
[2024-08-07 15:15] LABS: Thyroid Stimulating Hormone 0.502 uIU/mL (0.47-4.68)
== END ==
PROVIDERS: Family Provider Family Medicine; PCP Family Medicine; Referring Provider Family Medicine; Visit Provider Family Medicine
DX: Z13.0 Encounter for screening for diseases of the blood and blood-forming organs and certain disorders involving the immune mechanism (principal); J94.8 Other specified pleural conditions; R05.2 Subacute cough; R53.83 Other fatigue
CPT/HCPCS: 36415; 71046; 80053; 83880; 84443; 85025; 86140

== ENCOUNTER 2024-08-08 20:04 | Emergency (ER) | payer OTHER, SELFPAY ==
[2021-11-20 08:56] VITALS: BMI 31.5
[2024-08-08] VITALS (9 sets, daily range): BP systolic 134–168; BP diastolic 73–84; PULSE 64–75; RESP 14–20; TEMP 36.6; O2SAT 93–98; BMI 28.1
--- NOTE | 2024-08-08 20:32 | DI.RAD.S_ITS ---
PROCEDURE: XR CHEST 1V INDICATIONS: altered mental status TECHNIQUE: One view of the chest was acquired. COMPARISON: [facility], CR, XR CHEST 2V, 08/07/2024, 13:45. FINDINGS: Surgical changes and devices: Surgical clips in the right axilla. Lungs and pleura: Redemonstration of pleural calcifications compatible with prior asbestos exposure. No new focal consolidation.. No pleural effusions or pneumothorax. Mediastinum: Mediastinal contours appear normal. Heart size is normal. Bones and chest wall: No suspicious bony lesions. Overlying soft tissues appear unremarkable. IMPRESSION: Stable examination of the chest without acute cardiopulmonary abnormalities. Stable appearance of scattered bilateral pleural calcifications compatible with prior asbestos exposure. Dictated by: Jaime Murrell M.D. on 08/08/2024 at 21:23 Approved by: Jaime Murrell M.D. on 08/08/2024 at 21:31
--- NOTE | 2024-08-08 20:36 | EKG_ITS ---
[address] [address] Test Date: 2024-08-08 Pat Name: Tyrone Mac Department: [facility] Room: Gender: Male Drum Sander: EDUARDA BOWER : 1935 Requested By: Order Number: [id number] Reading MD: Jef Pollack Measurements Intervals Grant Rate: 69 P: -3 NE: 176 QRS: 9 QRSD: 162 T: -6 QT: 416 QTc: 445 Interpretive Statements Sinus rhythm with occasional premature ventricular complexes Right bundle branch block T wave abnormality, consider inferior ischemia Electronically Signed On 08-10-2024 0:11:48 PDT by Jef Pollack
--- NOTE | 2024-08-08 20:45 | DI.CT.S_ITS ---
PROCEDURE: CT HEAD/BRAIN WO CON INDICATIONS: altered mental status TECHNIQUE: Noncontrast 4.5 mm thick angled axial sections acquired from the foramen magnum to the vertex, with coronal and sagittal reformats. For radiation dose reduction, the following was used: automated exposure control, adjustment of mA and/or kV according to patient size. COMPARISON: [facility], CT, CT HEAD/BRAIN WO CON, 05/11/2024, 2:25. [facility], CT, CT HEAD/BRAIN WO CON, 11/27/2020, 14:26. FINDINGS: Image quality: Diagnostic. CSF spaces: Basal cisterns are patent. No extra-axial fluid collections. The ventricles are symmetric in size and shape. Brain: No intracranial bleeds or mass effect. There is cerebral volume loss, with resultant ventricular and sulcal prominence. There are periventricular and deep white matter chronic small vessel ischemic changes. There is intracranial internal carotid artery atherosclerosis. Skull and face: Calvarium and visualized facial bones appear intact, without suspicious lesions. Sinuses: Visualized sinuses and mastoids are clear. IMPRESSION: 1. CT head without acute intracranial abnormalities or acute calvarial fractures. 2. Age-related senescent changes and sequela of chronic small vessel ischemic disease. Dictated by: Jaime Murrell M.D. on 08/08/2024 at 21:14 Approved by: Jaime Murrell M.D. on 08/08/2024 at 21:15
[2024-08-08 21:37] LABS: Add Manual Diff / Slide Review NO; Basophils Absolute Auto 0 /uL (0-100); Basophils Percent Auto 0.5 % (0-2); Eosinophils Absolute Auto 100 /uL (0-450); Eosinophils Percent Auto 0.7 % (2-4); Hematocrit 44.5 % (41-53); Hemoglobin 15.5 g/dL (13.5-17.5); Lymphocytes Absolute Auto 2100 /uL (1100-4500); Lymphocytes Percent Auto 25.7 % (25-40); Mean Corpuscular HGB Conc 34.8 % (30-36); Mean Corpuscular Hemoglobin 33.6 PG (26-34); Mean Corpuscular Volume 96.4 fL (80-100); Monocytes Absolute Auto 900 /uL (0-900); Monocytes Percent Auto 11.1 % (3-14); Neutrophils Absolute Auto 5000 /uL (1500-7000); Platelet Count 252 X10^3/uL (150-400); Red Blood Cell Count 4.61 X10^6/uL (4.5-5.9); Red Cell Distribution Width 13.5 % (11.6-14.8); White Blood Cell Count 8.1 X10^3/uL (4.5-11.0)
[2024-08-08 21:48] LABS: Alanine Aminotransferase 22 IU/L (<50); Albumin Globulin Ratio 1.4 (1.0-2.8); Alkaline Phosphatase 59 U/L (38-126); Aspartate Aminotransferase 19 IU/L (17-59); BUN Creatinine Ratio 25.4 (6-22); Bilirubin Total 1.1 mg/dL (0.2-1.3); Blood Urea Nitrogen 17 mg/dL (9-20); Calcium 9.3 mg/dL (8.4-10.2); Carbon Dioxide 29 mmol/L (22-32); Chloride 92 mmol/L (98-107); Creatine Kinase 35 U/L (55-170); Estimated Glomerular Filt Rate > 60 mL/min (>60); Globulin 2.8 g/dL (1.7-4.1); Glucose 110 mg/dL (70-99); HEMOLYSIS < 15 (0-50); Lactate (Lactic Acid) 0.8 mmol/L (0.7-2.1); Potassium 3.9 mmol/L (3.4-5.1); Sodium 129 mmol/L (137-145); Total Protein 6.8 g/dL (6.3-8.2)
--- NOTE | 2024-08-08 21:48 | PC.NURSE ---
Pt, , and son state pt has been more fatigued and less active than usual over a period of time. Pt states he is not having difficulty thinking of words but is having difficulty getting them to his mouth. Denies headache, dizziness, n/v, SOB or chest pain.
[2024-08-08 22:00] LABS: Troponin I < 0.012 ng/mL (0.01-0.034)
[2024-08-08 22:12] LABS: Ethanol (ETOH) < 10 mg/dL (<10)
[2024-08-09] VITALS: BP 157/75; PULSE 66; RESP 17; O2SAT 94
[2024-08-09 00:30] VITALS: BP 129/75; PULSE 68; RESP 16; O2SAT 95
--- NOTE | 2024-08-09 00:43 | ED.GENADULT ---
HPI - General Adult General Chief complaint: Altered Mental Status Stated complaint: really confused and is not making sense when talk Time Seen by Provider: 08/08/24 20:45 Source: patient and family Mode of arrival: Ambulatory History of Present Illness HPI narrative: 88-year-old gentleman with history of hypertension, hyperlipidemia brought into the emergency department by his and his son who report that he is significantly confused today starting at approximately 7:30 a.m. this evening. He had mild expressive aphasia, could not explain whom he was talking to on the phone(it was his son), was not oriented to time or date. Not associated with a headache or other obvious weakness or neurologic findings. He does note that he has been increasingly weak generally over the last week. He had seen his primary care physician who initially thought that he had an acute sinus infection based on postnasal drainage and cough. Patient did not tolerate amoxicillin and was seen again with levofloxacin prescribed, picked up today but not yet started. He has not been having fevers, chills, chest pain, dyspnea, abdominal pain, flank pain, dysuria Related Data Home Medications ?Medication ?Instructions ?Recorded ?Confirmed allopurinol 300 mg tablet 150 mg PO DAILY 06/18/20 11/16/22 aspirin 325 mg tablet 325 mg PO DAILY 11/12/21 05/10/24 atorvastatin 40 mg tablet 20 mg PO BEDTIME 11/12/21 05/10/24 epinephrine 0.3 mg/0.3 mL 0.3 mg IM X1 PRN Allergic Reaction 11/12/21 11/16/22 injection, auto-injector valacyclovir 1 gram tablet 1,000 mg PO 3XD 11/16/22 11/16/22 hydrochlorothiazide 25 mg tablet 12.5 mg PO DAILY 05/10/24 05/10/24 Previous Rx's ?Medication ?Instructions ?Recorded amlodipine 5 mg tablet (Norvasc) 5 mg PO QDAY #90 tabs 12/21/19 acetaminophen 325 mg capsule 650 mg (2 x 325 mg) PO QID PRN 11/19/21 (Tylenol) pain #60 caps clopidogrel 75 mg tablet 75 mg PO DAILY #21 tabs 08/09/24 Allergies Allergy/AdvReac Type Severity Reaction Status Date / Time bee venom protein (honey bee) Allergy Swelling Verified 12/18/21 09:41 Review of Systems Review of Systems Narrative: Pertinent positive and negative findings as per HPI 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) Chicken pox Dementia Diverticular disease Encysted hydrocele Gout (~1999) Hearing deficit Hearing loss (~1994) Hiatal hernia Hyperlipidemia Hypertension Measles Mumps Psoriasis Shoulder pain (~1999) Stroke (~2006) Vision disorder Surgical History Anesthesia Hx of bilateral cataract extraction Status post colonoscopy Status post rotator cuff repair (~2004) Umbilical hernia (~2011) Family History Brother Age: 81 High cholesterol Father Mental health problem Dementia Mother Hypertension High cholesterol Social History household members: spouse alcohol intake: current alcohol intake frequency: a few times a month Exam Initial Vital Signs Initial Vital Signs: Vital Signs Temperature 97.8 F 08/08/24 20:20 Pulse Rate 75 08/08/24 20:20 Respiratory Rate 20 08/08/24 20:20 Blood Pressure 135/84 08/08/24 20:20 Pulse Oximetry 95 08/08/24 20:20 Oxygen Delivery Method Room Air 08/08/24 20:20 General: Healthy appearing, in no acute distress. Able to give a complete and coherent history. Well-nourished well-developed HEENT: Moist mucous membranes, normal sclera with reactive pupils, Neck: No JVD, supple Respiratory: Lungs are clear to auscultation, no wheezing no rales no rhonchi. Full and symmetrical air movement Cardiac: Regular rate and rhythm no murmurs no bruits Abdomen: Soft, nontender, no rebound or guarding, no flank pain Skin: Warm and dry, no rashes Neurologic: Grossly neurologically intact with no obvious asymmetries or abnormalities. He will aphasia, alert and oriented. NIH=0 Extremities: No trauma, well perfused Psych: Cooperative, appropriate insight and affect Course Orders Ordered: ED Orders 08/08/24 20:32 XR chest 1V Stat Urine Drug Screen, Rapid Stat EKG-12 Lead Stat 08/08/24 20:45 CT head/brain wo con Stat 08/08/24 21:28 Blood Culture Stat Complete Blood Count AUTO DIFF Stat Comprehensive Metabolic Panel Stat Ethanol (ETOH) Stat Lactate (Lactic Acid) Stat Procalcitonin Stat Troponin & CK Cardiac Panel Stat Vital Signs Vital signs: Vital Signs - 8 hr 08/08/24 20:20 08/08/24 21:25 08/08/24 21:26 Temperature 97.8 F Pulse Rate 75 65 Respiratory Rate 20 14 Blood Pressure 135/84 141/75 H Pulse Oximetry 95 95 Oxygen Delivery Method Room Air Room Air 08/08/24 21:26 08/08/24 21:30 08/08/24 21:30 Temperature Pulse Rate 66 67 Respiratory Rate 14 14 Blood Pressure 134/77 Pulse Oximetry 95 93 Oxygen Delivery Method Room Air Room Air 08/08/24 22:00 08/08/24 22:00 08/08/24 22:30 Temperature Pulse Rate 67 64 Respiratory Rate 16 16 Blood Pressure 148/73 H Pulse Oximetry 96 98 Oxygen Delivery Method Room Air Room Air 08/08/24 22:30 08/08/24 23:00 08/08/24 23:00 Temperature Pulse Rate 68 Respiratory Rate 16 Blood Pressure 162/76 H 168/74 H Pulse Oximetry 95 Oxygen Delivery Method Room Air 08/08/24 23:23 08/08/24 23:23 08/08/24 23:30 Temperature Pulse Rate 66 65 Respiratory Rate 16 Blood Pressure 157/74 H Pulse Oximetry 96 95 Oxygen Delivery Method 08/08/24 23:30 08/09/24 00:00 08/09/24 00:00 Temperature Pulse Rate 66 Respiratory Rate 17 Blood Pressure 142/77 H 157/75 H Pulse Oximetry 94 Oxygen Delivery Method 08/09/24 00:30 08/09/24 00:30 Temperature Pulse Rate 68 Respiratory Rate 16 Blood Pressure 129/75 Pulse Oximetry 95 Oxygen Delivery Method Room Air Medical Decision Making Lab Data 08/08/24 21:28 08/08/24 21:28 Labs: Lab Results 08/08/24 Range/Units 21:28 WBC 8.1 (4.5-11.0) X10^3/uL RBC 4.61 (4.5-5.9) X10^6/uL Hgb 15.5 (13.5-17.5) g/dL Hct 44.5 (41-53) % MCV 96.4 (80-100) fL MCH 33.6 (26-34) PG MCHC 34.8 (30-36) % RDW 13.5 (11.6-14.8) % Plt Count 252 (150-400) X10^3/uL Neut % (Auto) 62.0 (50-75) % Lymph % (Auto) 25.7 (25-40) % [place] % (Auto) 11.1 (3-14) % Eos % (Auto) 0.7 L (2-4) % Baso % (Auto) 0.5 (0-2) % Neut # (Auto) 5000 (1214-7221) /uL Lymph # (Auto) 2100 (1616-3551) /uL [place] # (Auto) 900 (0-900) /uL Eos # (Auto) 100 (0-450) /uL Baso # (Auto) 0 (0-100) /uL Sodium 129 L (137-145) mmol/L Potassium 3.9 (3.4-5.1) mmol/L Chloride 92 L (98-107) mmol/L Carbon Dioxide 29 (22-32) mmol/L BUN 17 (9-20) mg/dL Creatinine 0.67 (0.66-1.25) mg/dL Estimated GFR > 60 (>60) mL/min BUN/Creatinine Ratio 25.4 H (6-22) Glucose 110 H (70-99) mg/dL Lactate 0.8 (0.7-2.1) mmol/L Calcium 9.3 (8.4-10.2) mg/dL Total Bilirubin 1.1 (0.2-1.3) mg/dL AST 19 (17-59) IU/L ALT 22 (<50) IU/L Alkaline Phosphatase 59 (38-126) U/L Total Creatine Kinase 35 L (55-170) U/L Troponin I < 0.012 (0.01-0.034) ng/mL Total Protein 6.8 (6.3-8.2) g/dL Albumin 4.0 (3.5-5.0) g/dL Globulin 2.8 (1.7-4.1) g/dL Albumin/Globulin Ratio 1.4 (1.0-2.8) Procalcitonin 0.040 (<0.5) ng/mL Ethyl Alcohol < 10 (<10) mg/dL Urine Dip Bedside Urine Glucose Negative Bedside Urine Bilirubin - Negative Bedside Urine Ketone +/- 5 Urine Specific [place] 1.025 Bedside Urine Occult Blood - Negative Bedside Urine pH 6.0 Bedside Urine Protein - Negative Bedside Urine Urobilinogen - Negative Bedside Urine Nitrite - Negative Bedside Urine Leukocytes - Negative Esterase Point of care testing: Urine Dip Bedside Urine Glucose Negative Bedside Urine Bilirubin - Negative Bedside Urine Ketone +/- 5 Urine Specific [place] 1.025 Bedside Urine Occult Blood - Negative Bedside Urine pH 6.0 Bedside Urine Protein - Negative Bedside Urine Urobilinogen - Negative Bedside Urine Nitrite - Negative Bedside Urine Leukocytes - Negative Esterase Imaging Data CT angiogram, head and neck: Radiologist's Impression: PROCEDURE: CT ANGIO HEAD AND NECK INDICATIONS: TIA TECHNIQUE: After the administration of intravenous contrast, 1 mm thick sections acquired from the aortic arch through the [place] of [place]. 3-dimensional twhlxwi-faklnbvcg-qfmzwfeelm (MIP) and/or volume rendering reformats were acquired of the central intracranial vasculature and neck separately. For radiation dose reduction, the following was used: automated exposure control, adjustment of mA and/or kV according to patient size. COMPARISON: [facility], CT, CT ANGIO HEAD AND NECK, 08/09/2022, 10:13. FINDINGS: Image quality: Diagnostic. Cerebral CT Angiogram: Internal carotid arteries: No acute findings. Intracranial ICA are patent with no significant stenosis. No occlusion. No aneurysm. Anterior cerebral arteries: Unremarkable. No significant stenosis. No occlusion. No aneurysm. Middle cerebral arteries: Unremarkable. No significant stenosis. No occlusion. No aneurysm. Posterior cerebral arteries: Unremarkable. No significant stenosis. No occlusion. No aneurysm. Basilar artery: Unremarkable. No significant stenosis. No occlusion. No aneurysm. Vertebral arteries: Unremarkable as visualized. Dural venous sinuses: Unremarkable given phase of enhancement. Other: Arterial phase appearance of the brain parenchyma is unremarkable. Neck CT Angiogram: Internal carotid arteries: Mild to moderate calcification at the left proximal to mid internal carotid artery without significant stenosis. Mild scattered right ICA calcifications. No significant stenosis. No dissection or occlusion. Common carotid arteries: Mild scattered calcified plaque at the carotid bulbs. No significant stenosis. No dissection or occlusion. External carotid arteries: Unremarkable. No occlusion. Vertebral arteries: Unremarkable. No significant stenosis. No dissection or occlusion. Aortic Arch and Mediastinum: Partially visualized aortic arch unremarkable without evidence of aneurysm. Origins of the great vessels unremarkable. Other: Small right maxillary sinus mucocele or polyp. Arterial phase soft tissues of the neck and chest are otherwise unremarkable. IMPRESSION: No significant intracranial arterial abnormality is seen. No significant abnormality is seen within the arteries of the neck. Any quantitative measurements of stenosis were performed using NASCET criteria. Dictated by: Krista Brennan M.D. on 08/09/2024 at 2:13 MDM Narrative Medical decision making narrative: CC: Confusion starting at 7:30 p.m. now resolved, weakness waxing and waning over the last week, chronic cough Complicating co-morbidities: Hypertension, TIA x 5 Data collected from: patient Social determinants of health that may influence the patients condition: Medical records reviewed: Patient is currently on blood pressure medication and blood pressures at home are consistently in the 120-130 range systolic, he is on atorvastatin, 2 baby aspirin because of his prior TIAs Prior TIA workup has included: Echocardiogram 05/28/2024Interpretation Summary 1. Left ventricle contractility is normal. Estimate ejection fraction is greater than 55% with no segmental wall motion abnormalities. No LVH. Grade 1 diastolic dysfunction. 2. The right ventricular contractility is normal. 3. All cardiac chambers are normal size. 4. Trace to mild tricuspid regurgitation with estimated pulmonary systolic artery pressures of 37 mmHg. 5. No obvious intracardiac shunts. 6. No obvious intracardiac masses nor thrombi. 7. No hemodynamically significant pericardial effusion. 8. Normal right-sided filling pressures. CTA of the head and neck August 09 2022 confirms old small infarcts, no acute process no stenosis, aneurysm, occlusion or focal filling defect with patent carotids Brain MR 06/18/2020 shows no acute infarcts age-appropriate bring parenchymal volume loss and chronic small-vessel ischemic changes, brain angiogram shows no significant intracranial arterial abnormality and arteries of the neck show no hemodynamically significant stenoses Differential considered: TIA, intracranial hemorrhage, brain tumor, hypertensive crisis, meningitis, sepsis Exam documented above, pertinent findings include: By the time of my exam patient feels like he is completely back to his baseline and exam is benign Lab Test results independently reviewed as above. Pertinent findings: CBC shows no leukocytosis or acute anemia Chemistries show a sodium of 129, renal function normal with a GFR greater than 60 Troponin is undetectable Procalcitonin is not elevated to suggest infection Alcohol level is undetectable PT and PTT were appropriate Independently reviewed EKG: Sinus rhythm at a rate of 69, right bundle branch block occasional PVC, no significant ischemic changes Imaging studies independently reviewed: Chest x-ray shows stable exam no acute cardiopulmonary abnormalities. History of prior asbestos exposure with scattered bilateral pleural calcifications appreciated CT scan of the head shows no acute abnormalities, no evidence of acute sinusitis, age-related changes and sequelae of chronic small-vessel ischemic disease CT angiogram of the head and neck shows no acute abnormalities Consultations: Discussion with stroke neurologist at [facility], . In light of current treatment, previous workup and resolution of symptoms she recommended dual platelet therapy for 3 weeks with 300 mg of clopidogrel loading tonight and continuing with daily aspirin. She did recommend outpatient neurology follow up and consideration of outpatient MRI. Treatments: 300 mg of clopidogrel Discussion: 88-year-old gentleman with a history of prior TIAs, hyperlipidemia hypertension who presents with presumed TIA lasting approximately 3 hours with confusion and expressive aphasia. Symptoms are entirely resolved at this point. CT of the head and CT angiogram of the head and neck are unremarkable. He has had previous echocardiograms, CT angiograms as well as brain MRIs all within the last 4 years for similar complaints. Findings reviewed in detail with the patient and his . Discussed recommendations from stroke Neurology at the [facility] and reasons for the loading dose of clopidogrel given in the emergency department. Prescription for 21 additional days is given. We will ask him to follow up with his primary care physician and return should he have worsening symptoms. There was no indication for hospitalization or additional workup and he is safe for discharge. Discharge Plan Departure Patient Disposition: Home Clinical Impression: Transient cerebral ischemia Qualifiers: Transient cerebral ischemia type: unspecified Qualified Code(s): G45.9 - Transient cerebral ischemic attack, unspecified Instructions: DI for Transient Ischemic Attack Activity Restrictions/Additional Instructions: Thank you for coming in today You have had another, your 6th? , TIA this evening. Fortunately your symptoms have resolved entirely. The CT scan of your head as well as the angiogram of your head and neck were actually very reassuring. There was no obvious acute stroke, tumors, bleeding, masses or obvious restricted areas in any of your blood vessels to your head I reviewed her case with 1 of our stroke specialist neurologist at the [facility]. Her recommendation was to add clopidogrel to your aspirin for the next 3 weeks. Clopidogrel is sort of like a ?super aspirin?. Using 2 medications to try to reduce the stickiness of the your platelets can help reduce your risk of another TIA. 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 Prescriptions: New clopidogrel 75 mg tablet 75 mg PO DAILY Qty: 21 0RF No Action amlodipine [Norvasc] 5 mg tablet 5 mg PO QDAY Qty: 90 3RF Patient Comments: Pt takes at night allopurinol 300 mg tablet 150 mg PO DAILY aspirin 325 mg Tablet 325 mg PO DAILY atorvastatin 40 mg tablet 20 mg PO BEDTIME epinephrine 0.3 MG/0.3 ML auto-injector 0.3 mg IM X1 PRN (Reason: Allergic Reaction) acetaminophen [Tylenol] 325 mg capsule 650 mg PO QID PRN (Reason: pain) Qty: 60 0RF valacyclovir 1 gram tablet 1,000 mg PO 3XD hydrochlorothiazide 25 mg tablet 12.5 mg PO DAILY Referrals: Cali Gupta MD [Primary Care Provider, Family Practice] Stand Alone Forms: Patient Portal/API
[2024-08-09 01:00] VITALS: BP 135/78; PULSE 67; O2SAT 93
--- NOTE | 2024-08-09 01:19 | DI.CT.S_ITS ---
PROCEDURE: CT ANGIO HEAD AND NECK INDICATIONS: TIA TECHNIQUE: After the administration of intravenous contrast, 1 mm thick sections acquired from the aortic arch through the [place] of [place]. 3-dimensional qmsyvuf-toevafnyd-puhauemtkn (MIP) and/or volume rendering reformats were acquired of the central intracranial vasculature and neck separately. For radiation dose reduction, the following was used: automated exposure control, adjustment of mA and/or kV according to patient size. COMPARISON: [facility], CT, CT ANGIO HEAD AND NECK, 08/09/2022, 10:13. FINDINGS: Image quality: Diagnostic. Cerebral CT Angiogram: Internal carotid arteries: No acute findings. Intracranial ICA are patent with no significant stenosis. No occlusion. No aneurysm. Anterior cerebral arteries: Unremarkable. No significant stenosis. No occlusion. No aneurysm. Middle cerebral arteries: Unremarkable. No significant stenosis. No occlusion. No aneurysm. Posterior cerebral arteries: Unremarkable. No significant stenosis. No occlusion. No aneurysm. Basilar artery: Unremarkable. No significant stenosis. No occlusion. No aneurysm. Vertebral arteries: Unremarkable as visualized. Dural venous sinuses: Unremarkable given phase of enhancement. Other: Arterial phase appearance of the brain parenchyma is unremarkable. Neck CT Angiogram: Internal carotid arteries: Mild to moderate calcification at the left proximal to mid internal carotid artery without significant stenosis. Mild scattered right ICA calcifications. No significant stenosis. No dissection or occlusion. Common carotid arteries: Mild scattered calcified plaque at the carotid bulbs. No significant stenosis. No dissection or occlusion. External carotid arteries: Unremarkable. No occlusion. Vertebral arteries: Unremarkable. No significant stenosis. No dissection or occlusion. Aortic Arch and Mediastinum: Partially visualized aortic arch unremarkable without evidence of aneurysm. Origins of the great vessels unremarkable. Other: Small right maxillary sinus mucocele or polyp. Arterial phase soft tissues of the neck and chest are otherwise unremarkable. IMPRESSION: No significant intracranial arterial abnormality is seen. No significant abnormality is seen within the arteries of the neck. Any quantitative measurements of stenosis were performed using NASCET criteria. Dictated by: Krista Brennan M.D. on 08/09/2024 at 2:13 Approved by: Krista Brennan M.D. on 08/09/2024 at 2:19
[2024-08-09] MEDS: CLOPIDOGREL 75 MG TABLET 300 MG PO (01:25)
--- NOTE | 2024-08-09 01:29 | PC.NURSE ---
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
[2024-08-09 01:42] VITALS: PULSE 67; O2SAT 93
[2024-08-09 02:00] VITALS: PULSE 63; O2SAT 93
[2024-08-09 02:30] VITALS: PULSE 62; RESP 18; O2SAT 92
== END 2024-08-09 03:11 | disposition home or self-care (01) ==
PROVIDERS: Emergency Provider Emergency Medicine; Family Provider Family Medicine; PCP Family Medicine
DX: G45.9 Transient cerebral ischemic attack, unspecified (principal); R47.01 Aphasia
CPT/HCPCS: 36415; 70450; 70496; 70498; 71045; 80053; 80320; 81003; 82550; 83605; 84145; 84484; 85025; 87040; 93005; 99284; Q9967

== ENCOUNTER 2024-09-19 23:20 | Emergency (ER) | payer OTHER, SELFPAY ==
[2021-11-20 08:56] VITALS: BMI 31.5
--- NOTE | 2024-09-19 23:28 | EKG_ITS ---
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
--- NOTE | 2024-09-19 23:28 | DI.RAD.S_ITS ---
PROCEDURE: XR CHEST 1V INDICATIONS: headache, htn TECHNIQUE: One view of the chest was acquired. COMPARISON: [facility], CR, XR CHEST 1V, 08/08/2024, 20:46. [facility], CR, XR CHEST 2V, 08/07/2024, 13:45. FINDINGS: Surgical changes and devices: None. Lungs and pleura: Lungs are clear. No pleural effusions or pneumothorax. Mediastinum: Mediastinal contours appear normal. Heart size is enlarged. Bones and chest wall: No suspicious bony lesions. Overlying soft tissues appear unremarkable. IMPRESSION: No acute cardiopulmonary abnormality is seen. Cardiomegaly. Dictated by: Evan Servin M.D. on 09/20/2024 at 0:32 Approved by: Evan Servin M.D. on 09/20/2024 at 0:33
[2024-09-19 23:30] VITALS: BP 189/92; PULSE 67; RESP 16; TEMP 36.8; O2SAT 98; BMI 29.8
--- NOTE | 2024-09-19 23:30 | ED.GENADULT ---
HPI - General Adult General Chief complaint: Hypertension Stated complaint: possible tia, hist of tia, high b/p, head pressure Time Seen by Provider: 09/19/24 23:24 History of Present Illness HPI narrative: Patient is a 88-year-old male past medical history of hypertension, hyperlipidemia, comes into the ED from home for evaluation of left-sided head pressure, as well as high blood pressure. States that he did take an extra dose of his antihypertensives prior to arrival. States that he is just feeling ?off/anxious. At time of evaluation NIH of 0 no focal deficits. States that he has had similar symptoms several months ago and was told that he had a TIA at that time. Patient is on aspirin Plavix and statin at this time. Patient denies any other symptoms such as visual disturbances chest pain shortness breath fever chills nausea vomiting abdominal pain or any other GI/ symptoms time. Related Data Home Medications ?Medication ?Instructions ?Recorded ?Confirmed allopurinol 300 mg tablet 150 mg PO DAILY 06/18/20 11/16/22 aspirin 325 mg tablet 325 mg PO DAILY 11/12/21 05/10/24 atorvastatin 40 mg tablet 20 mg PO BEDTIME 11/12/21 05/10/24 epinephrine 0.3 mg/0.3 mL 0.3 mg IM X1 PRN Allergic Reaction 11/12/21 11/16/22 injection, auto-injector valacyclovir 1 gram tablet 1,000 mg PO 3XD 11/16/22 11/16/22 hydrochlorothiazide 25 mg tablet 12.5 mg PO DAILY 05/10/24 05/10/24 Previous Rx's ?Medication ?Instructions ?Recorded amlodipine 5 mg tablet (Norvasc) 5 mg PO QDAY #90 tabs 12/21/19 acetaminophen 325 mg capsule 650 mg (2 x 325 mg) PO QID PRN 11/19/21 (Tylenol) pain #60 caps clopidogrel 75 mg tablet 75 mg PO DAILY #21 tabs 08/09/24 Allergies Allergy/AdvReac Type Severity Reaction Status Date / Time bee venom protein (honey bee) Allergy Swelling Verified 09/19/24 23:30 Review of Systems Review of Systems Narrative: General: Denies fever, chills, weight loss HEENT: Positive headache, denies eye drainage, eye irritation, head trauma, sore throat, voice change Cardiovascular: Positive high blood pressure, Denies any chest pain, palpitations, tachycardia Respiratory: Denies any shortness of breath, cough, wheeze, stridor GI/: Denies any abdominal pain, nausea, vomiting, diarrhea, bright red blood per rectum, melanotic stools, urinary frequency, urinary retention, dysuria, hematuria MSK: Denies any joint pain, muscle pains, swelling Skin: Denies any rashes, lesions, discoloration Neuro: Denies any headache, lightheadedness, dizziness, fainting, weakness Psych: Denies SI/HI 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) Chicken pox Dementia Diverticular disease Encysted hydrocele Gout (~1999) Hearing deficit Hearing loss (~1994) Hiatal hernia Hyperlipidemia Hypertension Measles Mumps Psoriasis Shoulder pain (~1999) Stroke (~2006) Vision disorder Surgical History Anesthesia Hx of bilateral cataract extraction Status post colonoscopy Status post rotator cuff repair (~2004) Umbilical hernia (~2011) Family History Brother Age: 81 High cholesterol Father Mental health problem Dementia Mother Hypertension High cholesterol Social History household members: spouse Smoking Status: Never smoker alcohol intake: current alcohol intake frequency: a few times a month Exam Narrative Exam Narrative: General: Cooperative, well-developed, not in acute distress HEENT: Normocephalic, atraumatic, PERRLA, normal sclera, eyelids normal Neck: Active full range of motion, atraumatic Chest: Normal to inspection, negative crepitus, no overlying erythema ecchymosis Respiratory: Normal respiratory effort, not in acute respiratory distress, clear to auscultation bilaterally negative cough, wheeze, tachypnea, rhonchi, rales Cardiology: Regular rate rhythm negative gallop, murmur, rubs GI/: No tenderness to palpation, soft, non rigid, normal to inspection, exam deferred MSK: Full active range of motion in all 4 extremities, atraumatic, no tenderness to palpation of any bony prominences Skin: No rashes or lesions noted Neuro: NIH of 0, no focal deficits Alert awake oriented x3, moves all 4 extremities spontaneously, cranial nerves intact, able to answer all questions appropriately follows commands appropriately Psych: Cooperative, negative suicidal or homicidal ideations Initial Vital Signs Initial Vital Signs: Vital Signs Temperature 98.2 F 09/19/24 23:30 Pulse Rate 67 09/19/24 23:30 Respiratory Rate 16 09/19/24 23:30 Blood Pressure 189/92 H 09/19/24 23:30 Pulse Oximetry 98 09/19/24 23:30 Oxygen Delivery Method Room Air 09/19/24 23:30 Course Orders Ordered: ED Orders 09/19/24 23:28 XR chest 1V Stat EKG-12 Lead Stat 09/19/24 23:29 CT angio head and neck Stat CT head/brain wo con Stat 09/19/24 23:32 Complete Blood Count AUTO DIFF Stat Comprehensive Metabolic Panel Stat Lipase Stat MAG [Magnesium] Stat PTT Partial Thromboplastin Brian Stat Prothrombin Time INR Stat Troponin & CK Cardiac Panel Stat Discontinued Medications Dexamethasone (Dexamethasone 10 Mg/Ml Vial) 10 mg IV NOW ONE Stop: 09/19/24 23:29 Last Admin: 09/19/24 23:42 Dose: 10 mg Documented By: DIYA Diphenhydramine HCl (Diphenhydramine 50 Mg/Ml Vial) 25 mg IV NOW ONE Stop: 09/19/24 23:29 Last Admin: 09/19/24 23:44 Dose: 25 mg Documented By: DIYA Metoclopramide HCl (Metoclopramide 10 Mg/2 Ml Inj) 10 mg IV NOW ONE Stop: 09/19/24 23:29 Last Admin: 09/19/24 23:45 Dose: 10 mg Documented By: DIYA Vital Signs Vital signs: Vital Signs - 8 hr 09/19/24 23:30 09/19/24 23:35 09/20/24 00:00 Temperature 98.2 F Pulse Rate 67 58 L 61 Respiratory Rate 16 28 H 20 Blood Pressure 189/92 H 161/75 H Pulse Oximetry 98 97 97 Oxygen Delivery Method Room Air 09/20/24 00:14 09/20/24 00:14 09/20/24 00:30 Temperature Pulse Rate 62 59 L Respiratory Rate 16 15 Blood Pressure 157/73 H Pulse Oximetry 95 96 Oxygen Delivery Method 09/20/24 00:30 Temperature Pulse Rate Respiratory Rate Blood Pressure 151/68 H Pulse Oximetry Oxygen Delivery Method Medical Decision Making Differential Diagnosis Differential Diagnosis: CVA, intracranial hemorrhage, electrolyte abnormality, ACS, migraine, TIA Lab Data 09/19/24 23:32 09/19/24 23:32 Labs: Lab Results 09/19/24 Range/Units 23:32 WBC 6.9 (4.5-11.0) X10^3/uL RBC 4.44 L (4.5-5.9) X10^6/uL Hgb 14.8 (13.5-17.5) g/dL Hct 42.8 (41-53) % MCV 96.4 (80-100) fL MCH 33.3 (26-34) PG MCHC 34.5 (30-36) % RDW 13.6 (11.6-14.8) % Plt Count 268 (150-400) X10^3/uL Neut % (Auto) 43.2 L (50-75) % Lymph % (Auto) 41.5 H (25-40) % [place] % (Auto) 10.9 (3-14) % Eos % (Auto) 3.9 (2-4) % Baso % (Auto) 0.5 (0-2) % Neut # (Auto) 3000 (0127-1849) /uL Lymph # (Auto) 2900 (7870-8302) /uL [place] # (Auto) 800 (0-900) /uL Eos # (Auto) 300 (0-450) /uL Baso # (Auto) 0 (0-100) /uL PT 10.1 (9.4-12.5) SECONDS INR 0.9 (0.9-1.3) APTT 30 (25.1-36.5) SECONDS Sodium 133 L (137-145) mmol/L Potassium 3.7 (3.4-5.1) mmol/L Chloride 100 (98-107) mmol/L Carbon Dioxide 28 (22-32) mmol/L BUN 17 (9-20) mg/dL Creatinine 0.79 (0.66-1.25) mg/dL Estimated GFR > 60 (>60) mL/min BUN/Creatinine Ratio 21.5 (6-22) Glucose 106 H (70-99) mg/dL Calcium 9.4 (8.4-10.2) mg/dL Magnesium 2.1 (1.6-2.3) mg/dL Total Bilirubin 0.5 (0.2-1.3) mg/dL AST 21 (17-59) IU/L ALT 21 (<50) IU/L Alkaline Phosphatase 58 (38-126) U/L Total Creatine Kinase 51 L (55-170) U/L Troponin I < 0.012 (0.01-0.034) ng/mL Total Protein 6.9 (6.3-8.2) g/dL Albumin 4.1 (3.5-5.0) g/dL Globulin 2.8 (1.7-4.1) g/dL Albumin/Globulin Ratio 1.5 (1.0-2.8) Lipase 513 H (23-300) U/L Imaging Data CT scan - head: Radiologist's Impression: [address] [address] [address] Scan Report Signed Patient: Tyrone Mac MR#: [id number] : 1935 Acct:[id number] Age/Sex: 88 / M Date of Service: 09/19/24 Loc: ED Accession Number: [id number] Procedure: CT head/brain wo con Ordering Provider: Jef Brown D.O. PROCEDURE: CT HEAD/BRAIN WO CON INDICATIONS: left sided head pressure / hx TIA TECHNIQUE: Noncontrast 4.5 mm thick angled axial sections acquired from the foramen magnum to the vertex, with coronal and sagittal reformats. For radiation dose reduction, the following was used: automated exposure control, adjustment of mA and/or kV according to patient size. COMPARISON: [facility], CT, CT HEAD/BRAIN WO CON, 08/08/2024, 20:47. FINDINGS: Image quality: Diagnostic. CSF spaces: Basal cisterns are patent. No extra-axial fluid collections. The ventricles are symmetric in size and shape. Brain: No intracranial bleeds or mass effect. There is cerebral volume loss, with resultant ventricular and sulcal prominence. There are periventricular and deep white matter chronic small vessel ischemic changes. There is intracranial internal carotid artery atherosclerosis. Skull and face: Calvarium and visualized facial bones appear intact, without suspicious lesions. Sinuses: Visualized sinuses and mastoids are clear. IMPRESSION: No acute intracranial pathology. CTA - brain/neck: Radiologist's Impression: [address] [address] [address] Scan Report Signed Patient: Tyrone Mac MR#: [id number] : 1935 Acct:[id number] Age/Sex: 88 / M Date of Service: 09/19/24 Loc: ED Accession Number: [id number] Procedure: CT angio head and neck Ordering Provider: Jef Brown D.O. PROCEDURE: CT ANGIO HEAD AND NECK INDICATIONS: left sided head pressure/ hx TIA TECHNIQUE: After the administration of intravenous contrast, 1 mm thick sections acquired from the aortic arch through the [place] of [place]. 3-dimensional buqgsag-lvatprdly-zqepwdwpnf (MIP) and/or volume rendering reformats were acquired of the central intracranial vasculature and neck separately. For radiation dose reduction, the following was used: automated exposure control, adjustment of mA and/or kV according to patient size. COMPARISON: [facility], CT, CT ANGIO HEAD AND NECK, 08/09/2024, 1:21. FINDINGS: Image quality: Diagnostic. Cerebral CT Angiogram: Internal carotid arteries: No acute findings. Intracranial ICA are patent with no significant stenosis. No occlusion. No aneurysm. Anterior cerebral arteries: Unremarkable. No significant stenosis. No occlusion. No aneurysm. Middle cerebral arteries: Unremarkable. No significant stenosis. No occlusion. No aneurysm. Posterior cerebral arteries: Unremarkable. No significant stenosis. No occlusion. No aneurysm. Basilar artery: Unremarkable. No significant stenosis. No occlusion. No aneurysm. Vertebral arteries: Unremarkable as visualized. Dural venous sinuses: Unremarkable given phase of enhancement. Other: Arterial phase appearance of the brain parenchyma is unremarkable. Neck CT Angiogram: Internal carotid arteries: Unremarkable. No significant stenosis. No dissection or occlusion. Common carotid arteries: Unremarkable. No significant stenosis. No dissection or occlusion. External carotid arteries: Unremarkable. No occlusion. Vertebral arteries: Unremarkable. No significant stenosis. No dissection or occlusion. Aortic Arch and Mediastinum: Partially visualized aortic arch unremarkable without evidence of aneurysm. Origins of the great vessels unremarkable. Other: Arterial phase soft tissues of the neck and chest are unremarkable. IMPRESSION: No significant intracranial arterial abnormality is seen. No significant abnormality is seen within the arteries of the neck. Chest x-ray: Radiologist's Impression: [address] [address] XRay Report Signed Patient: Tyrone Mac MR#: [id number] : 1935 Acct:[id number] Age/Sex: 88 / M Date of Service: 09/19/24 Loc: ED Accession Number: [id number] Procedure: XR chest 1V Ordering Provider: Jef Brown D.O. PROCEDURE: XR CHEST 1V INDICATIONS: headache, htn TECHNIQUE: One view of the chest was acquired. COMPARISON: [facility], CR, XR CHEST 1V, 08/08/2024, 20:46. [facility], CR, XR CHEST 2V, 08/07/2024, 13:45. FINDINGS: Surgical changes and devices: None. Lungs and pleura: Lungs are clear. No pleural effusions or pneumothorax. Mediastinum: Mediastinal contours appear normal. Heart size is enlarged. Bones and chest wall: No suspicious bony lesions. Overlying soft tissues appear unremarkable. IMPRESSION: No acute cardiopulmonary abnormality is seen. Cardiomegaly. ECG Data Interpretation: EKG interpreted ED physician sinus bradycardia at 57 beats per minute QTC 422, right bundle branch block noted, there are T-wave inversions noted in AVF, V1 through V4, this is unchanged from previous performed on 08/08/2024 no STEMI MDM Narrative Medical decision making narrative: Patient is a 88-year-old male with a past medical history of TIA, hyperlipidemia hypertension presenting from home for evaluation of high blood pressure and head pressure, states it started few hours ago, states that he is not having any actual visual disturbances no chest pain shortness breath fever chills nausea vomiting or any other GI/ symptoms time. At time of evaluation patient NIH of 0 no focal deficits. Patient is already on aspirin Plavix and statin at this time. Patient had lab work imaging performed here in the emergency department. EKG unchanged from previous no STEMI. Patient's CT head CTA head and neck without any acute findings, chest x-ray without any acute cardiopulmonary abnormality, after administration of migraine cocktail symptoms have completely resolved. Possibility that symptoms are more likely atypical migraine in nature, they state that they have not followed up with a neurologist yet, did inform them to follow up with the neurologist, patient lab work unremarkable, troponin negative, patient already on dual antiplatelet therapy and statin therefore no indication for admission or further workup at this time, patient was instructed to follow up with the primary care and Neurology in outpatient setting, they verbalized understanding of this and agrees to being discharged home with outpatient follow up Discharge Plan Departure Patient Disposition: Home Clinical Impression: Headache, Hypertension Instructions: DI for High Blood Pressure Activity Restrictions/Additional Instructions: Please follow up with the primary care doctor and neurologist in outpatient setting Please read the discharge instructions sheet carefully and bring all papers to all doctor follow-up visits, as it may contain information that your doctor may want to see. Disease processes change and evolve, if your symptoms worsen or if you develop any new symptoms that are concerning to you please return for evaluation. Your evaluation today does not show any evidence of any life-threatening/serious illnesses requiring admission to the hospital or surgery. Please follow-up with your doctor for re-evaluation in approximately 1 day. Seek immediate medical attention for any worrisome symptoms. *If you do not have a primary care provider please contact the [facility] Resource line at [phone]. They will ask some questions about your medical history and help get you set up with a doctor in the community. Prescriptions: No Action amlodipine [Norvasc] 5 mg tablet 5 mg PO QDAY Qty: 90 3RF Patient Comments: Pt takes at night allopurinol 300 mg tablet 150 mg PO DAILY aspirin 325 mg Tablet 325 mg PO DAILY atorvastatin 40 mg tablet 20 mg PO BEDTIME epinephrine 0.3 MG/0.3 ML auto-injector 0.3 mg IM X1 PRN (Reason: Allergic Reaction) acetaminophen [Tylenol] 325 mg capsule 650 mg PO QID PRN (Reason: pain) Qty: 60 0RF valacyclovir 1 gram tablet 1,000 mg PO 3XD hydrochlorothiazide 25 mg tablet 12.5 mg PO DAILY clopidogrel 75 mg tablet 75 mg PO DAILY Qty: 21 0RF Referrals: Cali Gupta MD [Primary Care Provider, Family Practice] Stand Alone Forms: Patient Portal/API
[2024-09-19 23:35] VITALS: BP 161/75; PULSE 58; RESP 28; O2SAT 97
--- NOTE | 2024-09-19 23:36 | PC.NURSE ---
pt c/o pressure in the right side of his head and his bp being elevated, pt states he feels the way he did when he had a stroke earlier this year. pt has no neuro deficits, noted, did take extra bp medication today for the elevated bp
[2024-09-19 23:40] LABS: Add Manual Diff / Slide Review NO; Hematocrit 42.8 % (41-53); Hemoglobin 14.8 g/dL (13.5-17.5); Lymphocytes Absolute Auto 2900 /uL (1100-4500); Mean Corpuscular HGB Conc 34.5 % (30-36); Mean Corpuscular Hemoglobin 33.3 PG (26-34); Mean Corpuscular Volume 96.4 fL (80-100); Platelet Count 268 X10^3/uL (150-400)
[2024-09-19] MEDS: DEXAMETHASONE 10 MG/ML VIAL IV (23:42)
[2024-09-19] MEDS: diphenhydrAMINE 50 MG/ML VIAL 25 MG IV (23:44)
[2024-09-19] MEDS: METOCLOPRAMIDE 10 MG/2 ML INJ IV (23:45)
[2024-09-19 23:46] LABS: INR 0.9 (0.9-1.3); Prothrombin Time 10.1 SECONDS (9.4-12.5)
[2024-09-19 23:48] LABS: PTT Partial Thromboplastin Tim 30 SECONDS (25.1-36.5)
[2024-09-19 23:53] LABS: Magnesium 2.1 mg/dL (1.6-2.3)
[2024-09-19 23:54] LABS: Alanine Aminotransferase 21 IU/L (<50); Albumin 4.1 g/dL (3.5-5.0); Albumin Globulin Ratio 1.5 (1.0-2.8); Alkaline Phosphatase 58 U/L (38-126); Blood Urea Nitrogen 17 mg/dL (9-20); Calcium 9.4 mg/dL (8.4-10.2); Carbon Dioxide 28 mmol/L (22-32); Chloride 100 mmol/L (98-107); Creatine Kinase 51 U/L (55-170); Estimated Glomerular Filt Rate > 60 mL/min (>60); Globulin 2.8 g/dL (1.7-4.1); Glucose 106 mg/dL (70-99); HEMOLYSIS 18 (0-50); Lipase 513 U/L (23-300); Potassium 3.7 mmol/L (3.4-5.1); Sodium 133 mmol/L (137-145); Total Protein 6.9 g/dL (6.3-8.2)
[2024-09-20] VITALS: PULSE 61; RESP 20; O2SAT 97
[2024-09-20 00:05] LABS: Troponin I < 0.012 ng/mL (0.01-0.034)
[2024-09-20 00:14] VITALS: BP 157/73; PULSE 62; RESP 16; O2SAT 95
[2024-09-20 00:30] VITALS: BP 151/68; PULSE 59; RESP 15; O2SAT 96
== END 2024-09-20 00:58 | disposition home or self-care (01) ==
PROVIDERS: Emergency Provider Student in an Organized Health Care Education/Training Program; Family Provider Family Medicine; PCP Family Medicine
DX: R51.9 Headache, unspecified (principal); I10 Essential (primary) hypertension; Z86.73 Personal history of transient ischemic attack (TIA), and cerebral infarction without residual deficits; Z79.01 Long term (current) use of anticoagulants
CPT/HCPCS: 36415; 70450; 70496; 70498; 71045; 80053; 82550; 83690; 83735; 84484; 85025; 85610; 85730; 93005; 96374; 96375; 99284; J1100; J1200; J2765; Q9967

== ENCOUNTER → 2024-12-11 14:51 | Outpatient (CLI) | payer OTHER, SELFPAY ==
[2021-11-20 08:56] VITALS: BMI 31.5
[2024-12-11 15:58] LABS: Alanine Aminotransferase 19 IU/L (<50); Albumin 4.1 g/dL (3.5-5.0); Albumin Globulin Ratio 1.6 (1.0-2.8); Alkaline Phosphatase 59 U/L (38-126); Blood Urea Nitrogen 19 mg/dL (9-20); Calcium 10.0 mg/dL (8.4-10.2); Carbon Dioxide 29 mmol/L (22-32); Chloride 101 mmol/L (98-107); Estimated Glomerular Filt Rate > 60 mL/min (>60); Globulin 2.6 g/dL (1.7-4.1); Glucose 98 mg/dL (70-99); HEMOLYSIS < 15 (0-50); Potassium 4.3 mmol/L (3.4-5.1); Sodium 137 mmol/L (137-145); Total Protein 6.7 g/dL (6.3-8.2)
== END ==
PROVIDERS: Family Provider Family Medicine; PCP Family Medicine; Referring Provider Internal Medicine Cardiovascular Disease; Visit Provider Internal Medicine Cardiovascular Disease
DX: I10 Essential (primary) hypertension (principal)
CPT/HCPCS: 36415; 80053

== ENCOUNTER → 2025-01-01 08:25 | Outpatient (CLI) | payer OTHER, SELFPAY ==
[2021-11-20 08:56] VITALS: BMI 31.5
--- NOTE | 2025-01-01 08:26 | DI.MRI.S_ITS ---
PROCEDURE: MR HEAD/BRAIN WO CON INDICATIONS: Transient cerebral ischemic attack, unspecified TECHNIQUE: Noncontrast axial T1 spin echo, axial T2 fast spin echo, sagittal and axial FLAIR, coronal T2 fast spin echo, axial gradient echo, axial diffusion and ADC through the brain. COMPARISON: None. FINDINGS: CSF Spaces: Basal cisterns are patent. No extra-axial fluid collections. Ventricles are normal in size and shape. Brain: No intracranial masses or hemorrhage. [place]/white matter interface is normal. Brainstem appears normal. Diffusion-weighted sequence is unremarkable without evidence of acute infarct. Normal intravascular flow voids are present. Age-appropriate atrophy and white matter chronic ischemic changes present. Bilateral intraocular lens replacements noted. Skull and face: Calvarium has normal marrow signal. Orbits appear normal. Sinuses: Bilateral maxillary sinus mucosal thickening retention cysts measure up to 3 cm on the right IMPRESSION: Atrophy and chronic ischemic change without acute infarct, hemorrhage or mass lesion. Bilateral maxillary mucosal sinus disease Approved by: Paulo Brown M.D. on 01/01/2025 at 15:57
== END ==
LOC: MRI 08:25
PROVIDERS: Family Provider Family Medicine; PCP Family Medicine; Referring Provider Psychiatry & Neurology Neurology; Visit Provider Psychiatry & Neurology Neurology
DX: G45.9 Transient cerebral ischemic attack, unspecified (principal); J32.0 Chronic maxillary sinusitis
CPT/HCPCS: 70551